=== PATIENT | female | born 1955 | race Caucasian/White ===

== ENCOUNTER 2025-02-13 12:51 | Inpatient (IN) | payer MEDICARE, MEDICAID, SELFPAY ==
[2025-02-13] VITALS (12 sets, daily range): BP systolic 105–128; BP diastolic 59–75; PULSE 62–108; RESP 15–20; TEMP 36.2–36.9; O2SAT 94–100; BMI 31.0
--- NOTE | 2025-02-13 13:01 | XR_ITS ---
Examination: CT brain head without contrast. 2-D sagittal coronal reconstructions Date and time of exam:February 13, 2025 1358 hours INDICATIONS: Altered mental status today CTDI: vol (mGy):44.5 DLP: (mGycm):939 Technique: Multiple CT axial sections of the brain have been obtained, 5 mm slice thickness. Contrast has not been administered. 2-D sagittal, coronal reconstructions have been obtained Low dose protocols were performed. One or more of the following dose reduction techniques were used; automated exposure control, adjustment of the mA and/or KV according to patient size, use of iterative reconstruction technique. Findings: Mild ventricular enlargement. Intra-axial or extra-axial hemorrhage density is not seen. No mass effect or midline shift Basal cisterns are not remarkable. Fourth ventricle is midline. Cranial vault intact. Impression: Negative for acute hemorrhage, mass effect or midline shift Advise clinical correlation and follow-up accordingly
--- NOTE | 2025-02-13 13:11 | PD.EDAMS ---
Altered Mental Status RME/HPI General Chief Complaint: Altered Mental Status Stated Complaint: AMS Time Seen by Provider: 02/13/25 13:00 Arrival date/time: 02/13/25 12:51 Limitations: no limitations RME / HPI RME / HPI narrative: 69 year old female with history of dementia and Alzheimer's disease presents to the ED via BIBA from home for evaluation of altered mental status today. Per medics, family members at the scene reported that the patient?s baseline mental status is typically confused but she is usually able to engage in conversation. However, in the last two days, the family has noted increase in confusion, which has worsened today. The family also mentioned that the patient has had similar episodes of confusion in the past, which they associate with flare ups of her hiatal hernia. Per medics report, patient is a GCS of 9, was warm to touch, and her SBP was 98. On arrival to ED patient is altered and unable to provide any additional history due to mental status. Rectal temperature 103.6F. Related Data Home Medications ?Medication ?Instructions ?Recorded ?Confirmed benztropine 1 mg tablet 1 mg PO HS 12/07/22 12/17/22 Previous Rx's ?Medication ?Instructions ?Recorded quetiapine 200 mg tablet 200 mg PO BID #60 tabs 12/08/22 Allergies Allergy/AdvReac Type Severity Reaction Status Date / Time No Known Allergies Allergy Verified 10/03/22 15:20 Review of Systems Review of Systems ROS Unobtainable: unobtainable due to mental status Past Medical History Past Medical History NEUROLOGIC: Positive Dementia CARDIAC: Positive Hypertension; Negative Congestive Heart Failure RESPIRATORY: Negative Chronic Obstructive Pulmonary Disease (COPD) GENITOURINARY: Negative Renal Disease ENDOCRINE: Negative Diabetes Mellitus Type 1 or Diabetes Mellitus Type 2 OTHER HISTORY: Positive Falls; Negative Blood Transfusions or Anesthesia Reactions Social History SMOKING STATUS: Smoker, status unknown SUBSTANCE USE: unknown ED Exam General Limitations: Present no limitations General appearance: Present other (Confused, combative, words were nontangible, pale, moving all extremities with tremors, face symmetrical, no fecal or urinary incontinence, no signs of trauma ) Head Head exam: Present atraumatic Eye Eye exam: Present PERRL and EOMI ENT ENT exam: Present normal exam, normal oropharynx and mucous membranes moist Neck Neck exam: Present normal inspection and full ROM Chest Chest inspection: Present normal inspection and symmetric chest wall rise Respiratory Respiratory exam: Present normal lung sounds bilaterally Cardiovascular Cardiovascular exam: Present tachycardia and normal heart sounds Abdominal Exam Abdominal exam: Present soft and normal bowel sounds Extremities Exam Extremities exam: Present normal inspection and full ROM Neurological Exam Neurological exam: Present other (Confused, combative, words were nontangible, moving all extremities ) Skin Skin exam: Present warm, dry, intact and normal color Course Quality Measures Possible source: genitourinary Blood cultures ordered: completed in ED Antibiotic ordered: Yes Pertinent labs: 02/13/25 13:28 Lactic Acid 2.8 H mMol/L (0.4-2.0) Procalcitonin 0.24 ng/ml (0.0-0.49) sepsis Orders Category Date Time Status Contract Lead STAT Care 02/13/25 13:01 Completed Continuous Pulse Oximetry STAT Care 02/13/25 13:01 Completed EKG (ED ONLY) *Do not use* NOW Care 02/13/25 13:01 Completed Cook to [place] Routine Care 02/13/25 13:19 Ordered Insert IV NOW Care 02/13/25 13:01 Completed Insert NG / OG tube NOW Care 02/13/25 13:19 Active Intubation NOW Care 02/13/25 13:34 Completed NPO STAT Care 02/13/25 13:01 Active Strict Intake and Output Routine Care 02/13/25 13:[address] head/brain wo con Stat Exams 02/13/25 13:01 Completed EKG (ED Only) Stat Exams 02/13/25 13:01 Ordered XR chest 1V post procedure Stat Exams 02/13/25 13:19 Completed ABG [Arterial Blood Gas] Stat Lab 02/13/25 16:20 Completed B-Type Natriuretic Peptide Stat Lab 02/13/25 13:28 Completed Blood Culture (Lab) Stat Lab 02/13/25 13:28 Received CBC Stat Lab 02/13/25 13:28 Completed Comprehensive Metabolic Panel Stat Lab 02/13/25 13:28 Completed LDH (Lactate Dehydrogenase) Stat Lab 02/13/25 13:28 Completed Lactate (Lactic Acid) Stat Lab 02/13/25 13:28 Completed Lipase Stat Lab 02/13/25 13:28 Completed MRSA Nasal Screen Routine Lab 02/13/25 13:20 Ordered Magnesium Stat Lab 02/13/25 13:28 Completed Partial Thromboplastin Time Stat Lab 02/13/25 13:28 Completed Phosphorous Stat Lab 02/13/25 13:28 Completed Procalcitonin Stat Lab 02/13/25 13:28 Completed Prothrombin Time with INR Stat Lab 02/13/25 13:28 Completed Sputum Culture and Gram Stain Stat Lab 02/13/25 13:41 Results Troponin I Stat Lab 02/13/25 13:28 Completed Urinalysis Stat Lab 02/13/25 13:30 Completed Urine Culture Stat Lab 02/13/25 13:30 Received Acetaminophen Supp [Tylenol Supp] Med 02/13/25 13:02 Discontinued 1,000 mg SD X1 ONE Etomidate Inj [Amidate Inj] Med 02/13/25 13:05 Discontinued 20 mg .ROUTE .STK-MED ONE Etomidate Inj [Amidate Inj] Med 02/13/25 13:01 Discontinued 20 mg IVP X1 ONE Rocuronium Inj [Zemuron Inj] Med 02/13/25 13:05 Discontinued 100 mg .ROUTE .STK-MED ONE Rocuronium Inj [Zemuron Inj] Med 02/13/25 13:16 Discontinued 50 mg IV X1 ONE Rocuronium Inj [Zemuron Inj] Med 02/13/25 14:14 Discontinued 50 mg IV X1 ONE Rocuronium Inj [Zemuron Inj] Med 02/13/25 13:12 Discontinued 50 mg IVP X1 ONE Rocuronium Inj [Zemuron Inj] Med 02/13/25 13:01 Discontinued 95 mg IV X1 ONE Sodium Chloride Rt Vane 10% [NS Rt Vane 10%] Med 02/13/25 13:35 Discontinued 5 ml INH X1 ONE Vancomycin Pharmacy to Dose Med 02/13/25 13:30 Discontinued 1 each IV QDAY PRN Vancomycin/Ns 1 gm Ivpb 200 ml Med 02/13/25 13:30 Discontinued IV X1 cefTAZidime 2 gm Med 02/13/25 13:01 Discontinued SODIUM CHLORIDE 0.9% (Popper) [Ns 0.9% (P)] 50 ml IV X1 fentaNYL 2,500 MCG/250 ML BAG [Sublimaze Inj 2,500 MCG/ Med 02/13/25 13:29 Active 250 ML BAG] 2,500 mcg in 250 ml IV 25 mcg/hr Mechanical [Volume Ventilator] Stat RT 02/13/25 Active Oxygen Delivery NOW RT 02/13/25 13:01 Active Sputum Induction PRN RT 02/13/25 13:45 Ordered Vital Signs Vital signs: Vital Signs Pulse Rate 103 H 02/13/25 13:38 Pulse Oximetry (%) 97 02/13/25 13:38 Fraction of Inspired Oxygen 100 02/13/25 13:38 Procedures -ED Intubation Time out performed: Yes sedative: Etomidate Mg Given: 20 paralytic: Rocuronium Mg Given: 50 Laryngoscope: fiber optic video scope Assist Device Used: fiber optic device ET Tube Size: 7.5 ET Tube Uncuffed: No Tube Secured Depth (cm): 23 Tube Secured Location: other (gum) Tube Placement Confirmation: visualized tube passing through cords, equal breath sounds bilaterally, no breath sounds over epigastrium and confirmation by capnometry Patient Tolerated Procedure: well and no complications Intubation Complications: none Altered Mental Status MDM Narrative MDM Narrative:: Dayami Treadwell am scribing for and in the presence of Dr. Moreno. Patient data External records reviewed:: [facility] previous records (I reviewed ED visit on 12/17/2022 for agitation ) and EMS form Clinical information provided by:: EMS Social determinants that could affect healthcare access:: none Patient has the following chronic illnesses:: Dementia, alzheimer's disease How is presenting disease/condition affected by chronic disease/condition?: exacerbated by Evaluation data The following diagnostics were reviewed and interpreted by me:: lab results and radiology exam(s) Lab and/or radiology exams considered but not ordered:: None Interpretation Summary: Ordering Physician: Leeroy Moreno MD Date of Service: 02/13/25 Procedure(s): CT head/brain wo con Accession Number(s): [id number] cc: Kaila Patterson MD; Leeroy Moreno MD; Bairon Del Valle MD~ Examination: CT brain head without contrast. 2-D sagittal coronal reconstructions Date and time of exam:February 13, 2025 1358 hours INDICATIONS: Altered mental status today CTDI: vol (mGy):44.5 DLP: (mGycm):939 Technique: Multiple CT axial sections of the brain have been obtained, 5 mm slice thickness. Contrast has not been administered. 2-D sagittal, coronal reconstructions have been obtained Low dose protocols were performed. One or more of the following dose reduction techniques were used; automated exposure control, adjustment of the mA and/or KV according to patient size, use of iterative reconstruction technique. Findings: Mild ventricular enlargement. Intra-axial or extra-axial hemorrhage density is not seen. No mass effect or midline shift Basal cisterns are not remarkable. Fourth ventricle is midline. Cranial vault intact. Impression: Negative for acute hemorrhage, mass effect or midline shift Advise clinical correlation and follow-up accordingly Dictated By: Bairon Del Valle MD Signed By: <Electronically signed by Bairon Del Valle MD in [place]> 02/13/25 1449 Ordering Physician: Leeroy Moreno MD Date of Service: 02/13/25 Procedure(s): XR chest 1V post procedure Accession Number(s): [id number] cc: Kaila Patterson MD; Leeroy Moreno MD; Bairon Del Valle MD~ Examination: AP chest single view TECHNIQUE: AP semiupright chest single view exam date and time to thousand 25 1444 hours Comparison October 03, 2022 INDICATIONS: Hypoxic respiratory failure postintubation today. FINDINGS: Tracheal tube tip is at the orifice mainstem bronchus Mild prominence left ventricle Reduced inspiratory Suspicious for mild pneumonia left base Orogastric tube in stomach satisfactory position IMPRESSION: Recommend retracting the endotracheal tube 2 cm Dictated By: Bairon Del Valle MD Signed By: <Electronically signed by Bairon Del Valle MD in [place]> 02/13/25 1448 Medications / Prescriptions Medications or Prescriptions considered but not ordered:: None Medication administrations:: Medication Administration History Acetaminophen (Acetaminophen 325 Mg Tablet) 650 mg PO Q6H PRN PRN Reason: Mild Pain 1-3 or Fever >100.3 Stop: 03/15/25 14:14 Dextrose (Dextrose 50%-Water Inj 50 Ml Syringe) 25 ml IV Q15MIN PRN PRN Reason: BG 50-70 responsive npo pt Stop: 03/15/25 17:32 Dextrose (Dextrose 50%-Water Inj 50 Ml Syringe) 50 ml IV Q15MIN PRN PRN Reason: BG <50 OR BG <70 & pt unresponsive Stop: 03/15/25 17:32 Glucagon (Glucagon Inj 1 Mg Vial) 1 mg IM Q15MIN PRN PRN Reason: BG <70, and no IV access Heparin Sodium (Porcine) (Heparin Sod Inj 5000 Unit/Ml Vial) 5,000 unit SC Q12HR [facility] Stop: 02/27/25 20:59 Fentanyl Citrate (Sublimaze Inj 2,500 Mcg/250 Ml Bag) 2,500 mcg in 250 mls @ 2.5 mls/hr IV .Q24H PRN; Protocol PRN Reason: PER PROTOCOL Stop: 02/18/25 13:28 Last Titration: 02/13/25 14:17 Dose: 75 mcg/hr, 7.5 mls/hr Documented By: Admin: 02/13/25 13:45 Dose: 25 mcg/hr, 2.5 mls/hr Documented By: MERISSA Co-signed By: OLIVER Lactated Ringer's (Lactated Ringers) 1,000 mls @ 75 mls/hr IV .[id number] [facility] Stop: 03/15/25 14:14 Last Admin: 02/13/25 15:57 Dose: 75 mls/hr Documented By: MERISSA Propofol (Diprivan Ivpb) 1,000 mg in 100 mls @ 2.858 mls/hr IV .Q24H PRN; Protocol PRN Reason: PER PROTOCOL Stop: 03/15/25 14:21 Last Titration: 02/13/25 16:13 Dose: 25 mcg/kg/min, 14.288 mls/hr Documented By: Titration: 02/13/25 16:13 Dose: 20 mcg/kg/min, 11.43 mls/hr Documented By: Titration: 02/13/25 15:05 Dose: 15 mcg/kg/min, 8.573 mls/hr Documented By: Titration: 02/13/25 15:00 Dose: 10 mcg/kg/min, 5.715 mls/hr Documented By: Admin: 02/13/25 14:30 Dose: 5 mcg/kg/min, 2.858 mls/hr Documented By: MERISSA Co-signed By: PAT Ceftriaxone Sodium/Dextrose (Rocephin/D5w 1gm Iv Premix) 1 gm in 50 mls @ 100 mls/hr IV QDAY [place] Stop: 02/21/25 07:59 Vancomycin HCl/Dextrose (Vancomycin/D5w 1,250 Mg Ivpb) 250 mls @ 120 mls/hr IV DAILY@1000 [place] Stop: 02/21/25 09:59 Magnesium Sulfate (Magnesium Sulfate Ivpb) 2 gm in 50 mls @ 25 mls/hr IV X1 ONE Stop: 02/13/25 19:30 Insulin Human Lispro (Insulin Lispro (Admelog) 1 Unit/0.01 Ml Unit) 0 unit SC Q6HR [place]; Protocol Stop: 03/15/25 17:59 Ondansetron HCl (Ondansetron Inj 2 Mg/Ml Inj 2 Ml) 4 mg IV Q6H PRN; Protocol PRN Reason: NAUSEA OR VOMITING Stop: 03/15/25 14:14 Pantoprazole Sodium (Pantoprazole Inj 40 Mg Vial) 40 mg IVP QDAY [place] Stop: 03/15/25 14:29 Last Admin: 02/13/25 14:53 Dose: 40 mg Documented By: MERISSA Pharmacy Consult (Vancomycin Pharmacy To Dose 1 Each Each) 1 each IV QDAY PRN PRN Reason: CONSULT Stop: 03/16/25 08:59 Sennosides (Senna Tablet) 1 tab GT QDAY PRN; Protocol PRN Reason: constipation Stop: 03/15/25 14:14 Discontinued Medications Acetaminophen (Acetaminophen Supp 650 Mg Supp) 1,000 mg SD X1 ONE Stop: 02/13/25 13:03 Etomidate (Etomidate Inj 2 Mg/Ml Vial 10 Ml) 20 mg IVP X1 ONE Stop: 02/13/25 13:02 Last Admin: 02/13/25 13:12 Dose: 20 mg Documented By: MERISSA Etomidate (Etomidate Inj 2 Mg/Ml Vial 10 Ml) Confirm Administered Dose 20 mg .ROUTE .STK-MED ONE Stop: 02/13/25 13:06 Last Admin: 02/13/25 13:17 Dose: Not Given Documented By: MERISSA Non-Admin Reason: Override Medication Ceftazidime 2 gm/ Sodium (Chloride) 50 mls @ 100 mls/hr IV X1 ONE Stop: 02/13/25 13:30 Last Admin: 02/13/25 16:22 Dose: 100 mls/hr Documented By: Vancomycin/Sodium Chloride (Vancomycin/Ns 1 Gm Ivpb) 200 mls @ 120 mls/hr IV X1 ONE Stop: 02/13/25 15:09 Last Infusion: 02/13/25 16:22 Dose: Infused Documented By: Admin: 02/13/25 14:34 Dose: 120 mls/hr Documented By: Pharmacy Consult (Vancomycin Pharmacy To Dose 1 Each Each) 1 each IV QDAY PRN PRN Reason: CONSULT Stop: 03/15/25 13:29 Potassium Chloride (Potassium Chloride 10% 20 Meq/15 Ml Udc) 40 meq NG X1 ONE Stop: 02/13/25 14:33 Last Admin: 02/13/25 15:58 Dose: 40 meq Documented By: Potassium Phos/Sodium Phos ([facility] 1 Packet (1.5 Gm)) 1 packet NG X1 ONE Stop: 02/13/25 17:35 Rocuronium Newcomb (Rocuronium Inj 10 Mg/Ml Vial 10 Ml) 95 mg 1 mg/kg (95 mg) IV X1 ONE Stop: 02/13/25 13:02 Last Admin: 02/13/25 13:17 Dose: Not Given Documented By: Non-Admin Reason: Other, see note Comments: 50 mg ordered. not 95 Rocuronium Newcomb (Rocuronium Inj 10 Mg/Ml Vial 10 Ml) Confirm Administered Dose 100 mg .ROUTE .STK-MED ONE Stop: 02/13/25 13:06 Last Admin: 02/13/25 13:17 Dose: Not Given Documented By: Non-Admin Reason: Override Medication Rocuronium Newcomb (Rocuronium Inj 10 Mg/Ml Vial 10 Ml) 50 mg IVP X1 ONE Stop: 02/13/25 13:13 Last Admin: 02/13/25 13:12 Dose: 50 mg Documented By: MERISSA Co-signed By: PAT Rocuronium Newcomb (Rocuronium Inj 10 Mg/Ml Vial 10 Ml) 50 mg IV X1 ONE Stop: 02/13/25 13:17 Last Admin: 02/13/25 13:27 Dose: Not Given Documented By: Non-Admin Reason: Duplicate Medication on eMAR Rocuronium Newcomb (Rocuronium Inj 10 Mg/Ml Vial 10 Ml) 50 mg IV X1 ONE Stop: 02/13/25 14:15 Last Admin: 02/13/25 14:55 Dose: 50 mg Documented By: MERISSA Co-signed By: VG Sodium Chloride (Sodium Chloride Rt 10% 15 Ml Nebu) 5 ml INH X1 ONE Stop: 02/13/25 13:36 Sodium Chloride (Sodium Chloride Rt 10% 15 Ml Nebu) 5 ml INH X1 ONE Stop: 02/13/25 14:36 See above Consultations Consultation(s) initiated? (list below): Yes Consultation #1 (Physician, Specialty, Details): I spoke with slip sheeter Dr. Ferrara. Discussed patients PMHx, HPI, ED course, exam findings, labs, and radiology results. Folder Gluer Operator accepts the patient for admission. Diagnosis Differential diagnosis altered mental status: altered mental status, delirium, dementia, hypoglycemia, hyponatremia, subarachnoid hemorrhage and sepsis Most likely diagnosis given after review of the tests above:: Sepsis UTI Admission Indicated Admission indicated?: indicated Admission Request Was there a request for admission?: Yes Admission Attestation Admission request attestation: Discussed case with [] from Hospitalist service regarding admission. Discussed patients ED course, exam findings, labs, and radiology results. The Hospitalist [agrees,declines] to accept the patient for admission. Disposition Plan Disposition Plan: Admit Critical Care Time Critical Care Time Critical Care Time: Yes Total Critical Care Time (min.): 35 Attestation: The high probability of sudden, clinically significant deterioration in the patient's condition required the highest level of my preparedness to intervene urgently. The services I provided to this patient were to treat and/or prevent clinically significant deterioration. Services included the following: chart data review, reviewing nursing notes and/or old charts, documentation time, middleware consultant collaboration regarding findings and treatment options, medication orders and management, direct patient care, vital sign assessments and ordering, interpreting and reviewing diagnostic studies and lab tests. Aggregate critical care time includes only time during which I was engaged in work directly related to the patient's care, as described above, whether at bedside or elsewhere in the Emergency Department. It did not include time spent performing other reported procedures or the services of residents, students, nurses or physician assistants. Discharge Plan Plan Patient Disposition: Admit Acute Care w/in Hospital Patient condition on transfer: Stable Problem List Clinical Impression: Sepsis, UTI (urinary tract infection)
[2025-02-13] MEDS: ROCURONIUM INJ 10 MG/ML VIAL 10 ML 50 MG IVP (13:12)
[2025-02-13] MEDS: ETOMIDATE INJ 2 MG/ML VIAL 10 ML 20 MG IVP (13:12)
--- NOTE | 2025-02-13 13:19 | XR_ITS ---
Examination: AP chest single view TECHNIQUE: AP semiupright chest single view exam date and time to thousand 25 1444 hours Comparison October 03, 2022 INDICATIONS: Hypoxic respiratory failure postintubation today. FINDINGS: Tracheal tube tip is at the orifice mainstem bronchus Mild prominence left ventricle Reduced inspiratory Suspicious for mild pneumonia left base Orogastric tube in stomach satisfactory position IMPRESSION: Recommend retracting the endotracheal tube 2 cm
[2025-02-13 13:35] LABS: Collection Type, Urine Clean Catch
[2025-02-13 13:40] LABS: Bacteria,Urine 4+; Bilirubin,Urine Negative (Negative); Blood,Urine Trace (Negative); Color,Urine Lt-Yellow (Lt Yel-Yel); Glucose, Urine Negative (Negative); Ketones,Urine Negative (Negative); Leukocyte Esterase,Urine Positive (Negative); Nitrite,Urine Positive (Negative); PH,Urine 5.5 (5.0-7.0); Protein,Urine Trace (Neg - Trace); RBC,Urine 2 /hpf (0-3); Specific Gravity,Urine 1.012 (1.001-1.035); Squamous Epithelial Cell,Urine 1 /hpf (0-5); Urobilinogen,Urine Negative mg/dL (0.0-1.0); WBC,Urine 85 /hpf (0-5)
[2025-02-13 13:41] LABS: Clarity,Urine Cloudy (Clear/Hazy)
[2025-02-13 13:41] LABS: Basophils # (Auto) 0.1 Thou/mm3 (0.0-0.2); Basophils % (Auto) 0 % (0-2.5); Eosinophils % (Auto) 0 % (0-10); Hematocrit 34.3 % (36.0-46.0); Hemoglobin 11.7 g/dL (12.0-16.0); Immature Granulocytes % (Auto) 0 % (0-0); Immature Granulocytes Auto 0.05 Thou/mm3 (0.00-0.00); Lactate (Lactic Acid) 2.8 mMol/L (0.4-2.0); Lymphocytes # (Auto) 0.8 Thou/mm3 (1.0-4.8); Lymphocytes % (Auto) 6 % (10-50); Mean Corpuscular HGB Conc 34.1 g/dl (31.0-37.0); Mean Corpuscular Hemoglobin 29.3 pg (25.0-35.0); Mean Corpuscular Volume 86 fL (80-100); Monocytes # (Auto) 1.5 Thou/mm3 (0.0-0.8); Monocytes % (Auto) 11 % (0-12); Neutrophils # (Auto) 10.8 Thou/mm3 (1.8-7.7); Neutrophils % (Auto) 82 % (37-80); Nucleated Red Blood Cell % 0 /100 WBC (0); Platelet Count 197 Thou/mm3 (140-440); Red Blood Count 3.99 Miln/mm3 (4.00-5.20); White Blood Count 13.1 Thou/mm3 (3.6-11.0)
[2025-02-13] MEDS: fentaNYL 2,500 MCG/250 ML BAG 2,500 MCG/250 ML BAG IV (13:45)
[2025-02-13 13:55] LABS: INR 1.1 (0.9-1.3); Partial Thromboplastin Time 31.6 Seconds (22.0-36.0); Prothrombin Time 11.7 Seconds (9.0-12.2)
[2025-02-13 14:01] LABS: B-Type Natriuretic Peptide 116 pg/mL (0-100)
[2025-02-13 14:11] LABS: Alanine Aminotransferase 13 U/L (10-49); Albumin, Serum 4.1 gm/dL (3.4-4.8); Albumin/Globulin Ratio 1.5 (1.2-2.2); Alkaline Phosphatase 73 U/L (46-116); Anion Gap 12 (7-16); Aspartate Amino Transferase 12 U/L (0-34); BUN/Creatinine Ratio 20 Ratio (12-20); Bilirubin,Total 0.8 mg/dL (0.3-1.2); Blood Urea Nitrogen 20 mg/dL (9-23); Calcium 9.2 mg/dL (8.3-10.6); Calcium (Corrected) 9.2 mg/dL (8.5-10.1); Carbon Dioxide 21.9 mMol/L (20.0-31.0); Chloride 103 mMol/L (98-107); Estimated Creatinine Clearance 67.1 mL/min (>60); Globulin 2.7 gm/dL (2.3-3.5); Glucose 203 mg/dL (74-106); LDH (Lactate Dehydrogenase) 157 U/L (120-246); Lipase 25 U/L (12-53); Magnesium 1.4 mg/dL (1.6-2.6); Osmolality,Calculated 282 (275-295); Phosphorous 2.1 mg/dL (2.4-5.1); Potassium 3.6 mMol/L (3.4-5.1); Procalcitonin 0.24 ng/ml (0.0-0.49); Sodium 137 mMol/L (136-145); Total Protein 6.8 gm/dL (5.7-8.2); Troponin I < 0.020 ng/mL (0.0-0.045); eGFR > 60 See Note
[2025-02-13] MEDS: PROPOFOL 1,000 MG IVPB 1,000 MG/100 ML VIAL 2.858 MG IV (14:30)
--- NOTE | 2025-02-13 14:30 | PD.RESPROC ---
Procedures Procedure Date / Time 02/13/2025 14:30 Procedure Narrative Procedure Narrative: Indications: Rule out meningitis in the setting of pyrexia of 104 F Time: 2:00 PM Time out completed to verify correct patient, procedure, site, and special equipment required. Patient was placed on the right lateral decubitus position with with legs bent in position. Iliac crest identified. Bony lumbar spinous process palpated and intraspinous space identified in alignment with iliac crest. Lidocaine used to anesthetize local area. Needle advanced into subarachnoid space for CSF fluid. Stop removed and manometer obtained with opening pressure of 14. CSF fluid collected with 4 tubes. Minimal blood loss. - The patient's plan was discussed with attending Dr. Ferrara and senior residents Dr. Zahida Bravo MD PGY1 Internal Medicine Attending Attestation: I was present for entire procedure. No immediate complications, and no significant blood loss. Patient tolerated procedure well. Normal opening pressure. Clear fluid suggested of noninfected CSF. Will follow-up on studies with empiric antibiotic and antiviral regimen initiated. Lumbar Puncture Informed consent obtained: implied Time out done, and the following verified: correct patient, side and site, procedure and patient position Patient position: left lateral decubitus Skin prep: Povidone-Iodine 1% Local anesthetic used: Lidocaine 1% Amount of anesthesia used (mL): 4 Spinal needle gauge: 20G Interspace used: L4-L5 Fluid initially obtained: clear EBL(ml): 1 Complications: none
[2025-02-13] MEDS: VANCOMYCIN/NS 1 GM IVPB 200 ML IV (14:34)
[2025-02-13] MEDS: PANTOPRAZOLE INJ 40 MG VIAL IVP (14:53)
[2025-02-13] MEDS: ROCURONIUM INJ 10 MG/ML VIAL 10 ML 50 MG IV (14:55)
[2025-02-13] MEDS: RINGERS LACTATED 1000 ML 1,000 ML 75 ML IV (15:57)
[2025-02-13] MEDS: POTASSIUM CHLORIDE 10% 20 MEQ/15 ML UDC 40 MEQ NG (15:58)
[2025-02-13] MEDS: SODIUM CHLORIDE 0.9% IV ×2 (16:22→21:04)
[2025-02-13] MEDS: CEFTAZIDIME IV (16:22)
[2025-02-13 16:26] LABS: Base Excess 0 (-3-3); HCO3 25 mEq/L (20-26); Inspired Oxygen, FIO2 50 %; O2 Saturation 100 % (91-98); PCO2 41 mmHg (32.0-48.0); PO2 138 mmHg (83-108); pH, Arterial 7.39 (7.35-7.45)
[2025-02-13 16:28] LABS: Allen Test Performed/OK; Puncture Site Left Radial
[2025-02-13 16:31] LABS: Coccid Serology, CF CSF (UCD)* See Sep Rpt
[2025-02-13 16:39] LABS: Reflex Lactate? Y
[2025-02-13 17:04] LABS: CSF Cell Count Tube # Tube # 4; CSF Color Colorless (Colorless); CSF Mononuclear 0 %; CSF Polynuclear WBC 100 %; CSF Red Blood Cell 0 /cmm; CSF White Blood Cell 1 /cmm; CSF, Appearance Clear (Clear)
--- NOTE | 2025-02-13 17:21 | ESHP_ITS ---
Documentation for date of: 02/13/25 HPI History of Present Illness History of present illness: CC: altered mental status Patient is a 69-year-old female with a past medical history of dementia secondary to Alzheimer's disease and history of paranoid schizophrenia who presented to the emergency room from home with a chief complaint of of altered mental status over the past 2 days. Most patinet history obtained from patient's son, Darshan, patient has become more confused over the past view days and is no longer to carry on a conversation with increasing non-sensical speech pattern. Decreased urine output over the past two days. December, recent visit to pcp where antibiotic given, Cephalexin, for UTI. Denied recent sick contacts. Denied chills at home. Subjective pyrexia at home. Denied chest pain. Shortness of breath, per patient's son secondary to anxiety at baseline. No seizure like activity. Denied syncopal episodes. Denied recent falls. Denied any hemetemis, no hematochezia, and no melena. Denied cardiac history. 45 pack year history of smoking cigarettes and quit 5 years ago. Denied COPD diagnosis or need for albuterol. Denied wheezing. Remote history of meth use disorder. Admitted on 02/13/2025 for shock likely secondary to distributive patter and requiring mechanical ventilation, unable to protect airway. ER Course: Vitals upon arrival patient required immediate mechanical ventilation as GCS of 9 with a systolic blood pressure 98 with pyrexia of 104 F with acute encephalopathy. Leukocytosis with WBC count of 13.1. Na 137 and Potassium of 3.6. NO ANNETTA noted, BUN 20 and Creatine of 1.0. Elevated glucose, 203, denied history of diabetes. Lactic acid of 2.8 w/ repeat of 2.1. Hyperphosphatemia of 2.1 and hypomagensium of 1.4. Troponin within normal limits. BNP 116. No pulmonary vascular congestion noted on chest x-ray. Early left base pneumonia. Head CT negative for acute hemorrhage or mass effect. ABG-ph 7.39, pCO2 41, and PO2 138. Urine culture: Cloudy, Nitrates +, Leukocytes Esterase Positive, WBC 85 (H), and bacteria 4+ Medication: Rocuronium, Etomidate, Fentanly, propofol, and Cefepime 2 grams PMH: Dementia, Alzeihmers disease, and paranoid schizophrenia 45 pack year history, Cigarettes Past Surgical History: None Home Medication: Benztropine 1 mg HS Quetiapine 400 mg BID Lorazepam 0.5 mg TID (per son, patient takes 3 times a day consistently) Social History: 45 pack year history, quit about 5 years ago Remote history of meth use disorder Allergies: None Code Status: Full Code Review of Systems Review of Systems Narrative Review of Systems: All information collected from SON General appearance: NO weight change, NO fatigue, NO weakness, YES fever, NO chills, NO night sweats, No cough Skin: NO rash, NO itching, NO sores, NO moles HEENT: NO Trauma, NO nausea, NO vomiting, NO visual changes, NO blurry vision, NO double vision, NO tinnitus, NO vertigo, NO ear discharge, NO rhinorrhea, NO stuffiness, NO sneezing, NO allergy, NO epistaxis. NO Hoarseness, NO sore throat, NO swollen neck. Cardiac: NO Palpitations, NO dyspnea on exertion, NO orthopnea, NO paroxysmal nocturnal dyspnea, NO edema Respiratory: NO Shortness of Breath, NO Wheezing, NO Cough, NO Sputum, NO hemoptysis GI:NO appetite, NO nausea, NO vomiting, NO dysphagia, NO changes in bowel frequency, NO stool color, NO diarrhea, NO constipation, NO hemetemesis, NO hemorrhoids, NO melena, NO hematechezia, NO abdominal pain, NO jaundice Renal: NO frequency, NO hesitancy, NO urgency, NO hematuria, NO nocturia, NO incontinence, decreased urine output. MSK: NO muscle weakness, NO gout, NO arthritis, NO muscle stiffness Neuro: NO headaches, NO tremors, NO weakness, NO paralysis, NO seizures, NO loss of consciousness, NO numbness. Hem: NO anemia, NO easy bruising/bleeding, NO petechiae, NO purpura Endo: NO heat/cold intolerance, NO excessive sweating, NO polyuria, NO polydipsia, NO polyphagia, NO thyroid problems, Denied diabetes Pysch: NO mood, YES anxiety, NO depression Exam Vital Signs Temp Pulse Resp BP Pulse Ox O2 Del Method FiO2 98.4 F 76 16 128/73 100 Mechanical Ventilation 50 02/13/25 16:23 02/13/25 16:23 02/13/25 16:23 02/13/25 16:23 02/13/25 16:23 02/13/25 16:23 02/13/25 16:23 Narrative Exam General Appearance: Alert & Oriented X0, well-nourished female who is lying in bed in no distress as patient was intubated upon examination HEENT: Skull symmetrical and atraumatic. Conjunctivae pale pink and moist. Pupils equal, round, reactive to light and accommodation (PERRL). External ear without lesion or discharge. Straight, nares patient, mucosa pink, no discharge. Cardio: Normal Rate and Rhythm with S1 and S2 heart sounds. No murmurs or extra heart sounds auscultated. No bruits on carotid auscultation. No peripheral edema or cyanosis. Lungs: Symmetric expansion Breath sounds vesicular without crackles, wheezing or rhonchi Abdomen: Non-tender, Non-distended, Hypo- Reactive Bowel Sounds, grimacing noted on physical exam at supra-pubic region unon palpation. Neuro: Yes Alert, NO cooperative,NO oriented to person, NO place, and NO time. Unresponsive. Unable to access as patient was sdated. Results: Labs 02/17/25 09:26 02/17/25 09:26 Labs: Short CBC 02/13/25 Range/Units 13:28 WBC 13.1 H (3.6-11.0) Thou/mm3 Hgb 11.7 L (12.0-16.0) g/dL Hct 34.3 L (36.0-46.0) % Plt Count 197 (140-440) Thou/mm3 BMP 02/13/25 13:28 Sodium 137 Potassium 3.6 Chloride 103 Carbon Dioxide 21.9 BUN 20 Creatinine 1.0 Glucose 203 H Calcium 9.2 Cardiac Enzymes 02/13/25 Range/Units 13:28 Troponin I < 0.020 (0.0-0.045) ng/mL Liver Function 02/13/25 Range/Units 13:28 Total Bilirubin 0.8 (0.3-1.2) mg/dL AST 12 (0-34) U/L ALT 13 (10-49) U/L Alkaline Phosphatase 73 (46-116) U/L Albumin 4.1 (3.4-4.8) gm/dL Urine 02/13/25 Range/Units 13:30 Urine Color Lt-Yellow (Lt Yel-Yel) Urine Clarity Cloudy A (Clear/Hazy) Urine pH 5.5 (5.0-7.0) Ur Specific [place] 1.012 (1.001-1.035) Urine Protein Trace (Neg - Trace) Urine Glucose (UA) Negative (Negative) ABG Interpretation ABG results: 02/13/25 16:20 ABG pH 7.39 ABG pCO2 41 ABG pO2 138 H ABG HCO3 25 ABG O2 Saturation 100 H ABG Base Excess 0 Quality Measures Quality Measures sepsis Current suspected stage: sepsis Possible source: genitourinary Blood cultures ordered: completed in ED Antibiotic ordered: Yes Advance care planning discussed with:: patient Medications Home Medications and Allergies Home Medications ?Medication ?Instructions ?Recorded ?Confirmed ?Type benztropine 1 mg tablet 1 mg PO HS 12/07/22 02/13/25 History bisacodyl 5 mg tablet,delayed 10 mg PO QDAY 02/13/25 0 02/13/25 History release (Dulcolax (bisacodyl)) lorazepam 0.5 mg tablet 0.5 mg PO TID PRN anxiety 02/13/25 History Allergies Allergy/AdvReac Type Severity Reaction Status Date / Time No Known Allergies Allergy Verified 10/03/22 15:20 Visit Medications Acetaminophen (Acetaminophen 325 Mg Tablet) 650 mg PO Q6H PRN PRN Reason: Mild Pain 1-3 or Fever >100.3 Stop: 03/15/25 14:14 Heparin Sodium (Porcine) (Heparin Sod Inj 5000 Unit/Ml Vial) 5,000 unit SC Q12HR [facility] Stop: 02/27/25 20:59 Fentanyl Citrate (Sublimaze Inj 2,500 Mcg/250 Ml Bag) 2,500 mcg in 250 mls @ 2.5 mls/hr IV .Q24H PRN; Protocol PRN Reason: PER PROTOCOL Stop: 02/18/25 13:28 Last Titration: 02/13/25 14:17 Dose: 75 mcg/hr, 7.5 mls/hr Lactated Ringer's (Lactated Ringers) 1,000 mls @ 75 mls/hr IV .[id number] [facility] Stop: 03/15/25 14:14 Last Admin: 02/13/25 15:57 Dose: 75 mls/hr Propofol (Diprivan Ivpb) 1,000 mg in 100 mls @ 2.858 mls/hr IV .Q24H PRN; Protocol PRN Reason: PER PROTOCOL Stop: 03/15/25 14:21 Last Titration: 02/13/25 16:13 Dose: 25 mcg/kg/min, 14.288 mls/hr Ceftriaxone Sodium/Dextrose (Rocephin/D5w 1gm Iv Premix) 1 gm in 50 mls @ 100 mls/hr IV QDAY [place] Stop: 02/21/25 07:59 Vancomycin HCl/Dextrose (Vancomycin/D5w 1,250 Mg Ivpb) 250 mls @ 120 mls/hr IV DAILY@1000 [place] Stop: 02/21/25 09:59 Ondansetron HCl (Ondansetron Inj 2 Mg/Ml Inj 2 Ml) 4 mg IV Q6H PRN; Protocol PRN Reason: NAUSEA OR VOMITING Stop: 03/15/25 14:14 Pantoprazole Sodium (Pantoprazole Inj 40 Mg Vial) 40 mg IVP QDAY [place] Stop: 03/15/25 14:29 Last Admin: 02/13/25 14:53 Dose: 40 mg Pharmacy Consult (Vancomycin Pharmacy To Dose 1 Each Each) 1 each IV QDAY PRN PRN Reason: CONSULT Stop: 03/16/25 08:59 Sennosides (Senna Tablet) 1 tab GT QDAY PRN; Protocol PRN Reason: constipation Stop: 03/15/25 14:14 Discontinued Medications Acetaminophen (Acetaminophen Supp 650 Mg Supp) 1,000 mg IN X1 ONE Stop: 02/13/25 13:03 Etomidate (Etomidate Inj 2 Mg/Ml Vial 10 Ml) 20 mg IVP X1 ONE Stop: 02/13/25 13:02 Last Admin: 02/13/25 13:12 Dose: 20 mg Ceftazidime 2 gm/ Sodium (Chloride) 50 mls @ 100 mls/hr IV X1 ONE Stop: 02/13/25 13:30 Last Admin: 02/13/25 16:22 Dose: 100 mls/hr Vancomycin/Sodium Chloride (Vancomycin/Ns 1 Gm Ivpb) 200 mls @ 120 mls/hr IV X1 ONE Stop: 02/13/25 15:09 Last Infusion: 02/13/25 16:22 Dose: Infused Pharmacy Consult (Vancomycin Pharmacy To Dose 1 Each Each) 1 each IV QDAY PRN PRN Reason: CONSULT Stop: 03/15/25 13:29 Potassium Chloride (Potassium Chloride 10% 20 Meq/15 Ml Udc) 40 meq NG X1 ONE Stop: 02/13/25 14:33 Last Admin: 02/13/25 15:58 Dose: 40 meq Rocuronium [place] (Rocuronium Inj 10 Mg/Ml Vial 10 Ml) 95 mg 1 mg/kg (95 mg) IV X1 ONE Stop: 02/13/25 13:02 Last Admin: 02/13/25 13:17 Dose: Not Given Rocuronium [place] (Rocuronium Inj 10 Mg/Ml Vial 10 Ml) 50 mg IVP X1 ONE Stop: 02/13/25 13:13 Last Admin: 02/13/25 13:12 Dose: 50 mg Rocuronium [place] (Rocuronium Inj 10 Mg/Ml Vial 10 Ml) 50 mg IV X1 ONE Stop: 02/13/25 13:17 Last Admin: 02/13/25 13:27 Dose: Not Given Rocuronium [place] (Rocuronium Inj 10 Mg/Ml Vial 10 Ml) 50 mg IV X1 ONE Stop: 02/13/25 14:15 Last Admin: 02/13/25 14:55 Dose: 50 mg Sodium Chloride (Sodium Chloride Rt 10% 15 Ml Nebu) 5 ml INH X1 ONE Stop: 02/13/25 13:36 Sodium Chloride (Sodium Chloride Rt 10% 15 Ml Nebu) 5 ml INH X1 ONE Stop: 02/13/25 14:36 Assessment & Plan Plan Patient is a 69-year-old female with a past medical history of dementia secondary to Alzheimer's disease and history of paranoid schizophrenia was admitted for sepsis secondary to UTI requiring mechanical ventilation, unable to protect airway to ICU on 02/13/2025. [employer] EXECUTIVE: #Acute encephalopathy Acute encephalopathy likely in the setting of shock versus poly-pharmacy as patient takes several behavioral health mediation including benztropine, lorazepam TID, and quetiapine. Plan: -continue to monitor CVS: #Sepsis #Lactic Acidosis Most likely sepsis, in the setting of urinary tract infection with positive UA. ER 1.5 Liters of urine after means catheter placement that appeared cloudy. Hypotensive 98/68 (MAP >65) as per chart review systolic BP 130-150s, HR 108, WBC of 13, and pyrexia of 104, lactic acidosis, and end-organ damage with acute encephalopathy. Meningitis can not be rule out given acute altered mental status and pyrexia of 104 F. Pneumonia can not be rule out given chest x-ray findings of early left base pneumonia. No pressors at this time. Bolus X 1 and Maintenance fluid. SOFA 5 points. Plan -Ceftriaxone, Vancomycin, Ampicillin, and Acyclovir (02/13/2025), consider deescalating based on LP -NS 1 liter bolus, NS @ 70 cc per hour -LP anylisis, LP Culture -Repeat Lactic Acid -Blood culture -Urine Culutre -MRSA Swab -Strict Ins and Outs, Means catheter -Tylenol via NG tube Respiratory: #Mechanically Ventilated, unable to protect airway #Community Acquired Pneumonia On arrival, patient unable to protect airway, with GCS of 9 upon arrival, requiring incubation and mechanical ventilation likely in the setting of sepsis. Chest x-rays noted for pneumonia, less likely as no rhonchi noted on physical exam but can not be ruled out at this time. Plan -Flu, Covid tests -sputum culture -Propofol PRN -dual coverage with antibiotics in setting of sepsis Renal: Stable. GI: #Constipation Home medication, senna as patient has a past medical history of constipation. plan -resume Senna. MSK: Stable Endo: Hyperglycemia on addition with glucose level of 203. Family at beside denied history of diabetes. NO A1c on file. Plan -Sliding scale q6HR given NPO -A1c levels AM draw and Lipid panel AM Heme: #Normocytic Anemia On arrival hgb of 11.7 and hct of 34.3 with MCV of 86, and RDW of 45 (N). Normocytic anemia likely in the setting of inflammation given sespsi. Other causes can not be rule out such as microcytic from GI losses, but less likely as family members deny history. Plan -No acute intervention -Trend hgb and hct -if worsening, consider iron panel, ferritin, occult blood, B12, and Folate. #Leukocytosis On arrival WBC count of 13.1 in the setting of sepsis, likely distributive concern for urinary tract infection and pneumonia. Plan treat underlying condition trend WBC ID: #[id number] #Pneumonia Noted to have a positive UA with bacteria, nitrates and esterases. Plan -Urine Culture -Blood Culture -Sputum Culture -Cefepmine ER 2 grams 02/13/2025 Hospital Maintenance: Diet: NPO DVT ppx: Heparin Q12 HR GI ppx: Protonix 40 mg IV IV lines: Means catheter, NG tube ordered, Mechanical ventilation Code status: Full code Dispo: ICU in the setting of shock, likely distributive and mechanically ventilated - The patient's plan was discussed with attending Dr. Alem Bravo MD PGY1 Internal Medicine Attending Provider Attestation/Addendum Patient seen and examined with above resident, Mayr Bravo MD. I agree with the findings, assessment, and plan of care as document except for any differences below. Patient presents to the emergency department with acute encephalopathy. Febrile to 104 ?F per bedside staff. Given her altered mental status we did proceed with lumbar puncture which was successfully done. Patient given acute encephalopathy was placed on mechanical ventilation endotracheal intubation for airway protection. Means catheter was placed and there is gross pyuria present. I suspect that this is the most likely etiology but cannot exclude presence of OUTS[employer] SAL[employer]ISING EXECUTIVE infection given her significant rigidity. Patient underlying neurologic status shows considerable progressive dementia. She has recently been treated for urinary tract infection with ongoing urinary retention and constipation. Family. Will follow-up on results of CSF analysis with empiric treatments initiated. Antibiotic and antiviral regimen will be adequate for coverage of urinary source as well. Adequate drainage with placement of Means now. Will continue to monitor closely for development of need of vasopressor support though she remains hemodynamically stable at this time with likely adequate source control. Total critical care time: Personally spent 40 minutes for review of physiologic parameters, directing plan of care throughout the day, and coordination of care with other specialist. This is exclusive of time spent teaching housestaff performing any separate billable procedures. Patient remains at significant risk for further morbidity and mortality warranting close monitoring and care only immediately available in the ICU. Patient continues to require critical care services for acute encephalopathy, severe sepsis, urinary tract infection/meningitis.
[2025-02-13 17:26] LABS: Glucose,CSF 107 mg/dL (40-70); Protein Total,CSF 59 mg/dL (8-32)
[2025-02-13 17:34] LABS: Alcohol, Urine Negative (Negative); Amphetamine/Methamp Scrn,U Negative (Negative); Barbiturate Screen,Urine Negative (Negative); Benzodiazepines Screen,Urine Negative (Negative); Benzoylecgonine Screen, Ur Negative (Negative); Fentanyl Screen,Urine Negative (Negative); Opiate Screen,Urine Negative (Negative); THC Screen,Urine Negative (Negative)
[2025-02-13 17:43] LABS: CSF Gram Stain Alert Gram Stain Completed
[2025-02-13 17:53] LABS: Lactate (Lactic Acid) 2.1 mMol/L (0.4-2.0)
[2025-02-13] MEDS: Magnesium Sulfate 2 GM Ivpb 2 GM/50 ML BAG IV (19:02)
[2025-02-13] MEDS: NAPH,KPH MBDB 1 PACKET (1.5 GM) NG (19:02)
[2025-02-13] MEDS: Ampicillin Inj 2,000 MG in SODIUM CHLORIDE 0.9% (POP) 100 ML 100 MG IV ×2 (20:01→22:43)
[2025-02-13] MEDS: SODIUM CHLORIDE 0.9% 1000 ML 1,000 ML 999 ML IV (20:01)
[2025-02-13 20:50] LABS: Reflex Lactate? Y
[2025-02-13] MEDS: HEPARIN SOD INJ 5000 UNIT/ML VIAL SC (21:03)
[2025-02-13] MEDS: ACYCLOVIR IV (21:04)
[2025-02-13 22:06] LABS: Lactic Acid, 3 HR 3.4 mMol/L (0.4-2.0)
[2025-02-13] MEDS: PROPOFOL 1,000 MG IVPB 1,000 MG/100 ML VIAL 11.43 MG IV (22:14)
[2025-02-14] VITALS (74 sets, daily range): BP systolic 82–155; BP diastolic 45–107; PULSE 48–103; RESP 12–32; TEMP 36.3–38.9; O2SAT 90–99; BMI 27.1; BMI 26.3
[2025-02-14 00:38] LABS: Lactate (Lactic Acid) 2.1 mMol/L (0.4-2.0)
[2025-02-14] MEDS: RINGERS LACTATED 1000 ML 1,000 ML 999 ML IV (00:47)
[2025-02-14] MEDS: cefTRIAXone 2 GM in SODIUM CHLORIDE 0.9% (Popper) 50 ML IV (01:04)
[2025-02-14] MEDS: Ampicillin Inj 2,000 MG in SODIUM CHLORIDE 0.9% (POP) 100 ML 100 MG IV ×2 (01:31→05:02)
[2025-02-14 03:35] LABS: Reflex Lactate? Y
[2025-02-14 04:51] LABS: Base Excess 1 (-3-3); HCO3 26 mEq/L (20-26); Inspired Oxygen, FIO2 30 %; O2 Saturation 98 % (91-98); PCO2 40 mmHg (32.0-48.0); PO2 82 mmHg (83-108); pH, Arterial 7.42 (7.35-7.45)
[2025-02-14] MEDS: ACETAMINOPHEN 325 MG TABLET 650 MG PO ×2 (04:54→09:54)
[2025-02-14] MEDS: RINGERS LACTATED 1000 ML 1,000 ML 75 ML IV (04:54)
[2025-02-14 04:55] LABS: Allen Test Performed/OK; Puncture Site Right Radial
[2025-02-14] MEDS: SODIUM CHLORIDE 0.9% IV (05:02)
[2025-02-14] MEDS: ACYCLOVIR IV (05:02)
[2025-02-14 05:38] LABS: Lactic Acid, 3 HR 0.8 mMol/L (0.4-2.0)
[2025-02-14 05:42] LABS: Basophils # (Auto) 0.1 Thou/mm3 (0.0-0.2); Basophils % (Auto) 1 % (0-2.5); Eosinophils # (Auto) 0.1 Thou/mm3 (0.0-0.5); Eosinophils % (Auto) 1 % (0-10); Hematocrit 29.8 % (36.0-46.0); Immature Granulocytes % (Auto) 0 % (0-0); Immature Granulocytes Auto 0.04 Thou/mm3 (0.00-0.00); Lymphocytes # (Auto) 0.9 Thou/mm3 (1.0-4.8); Lymphocytes % (Auto) 7 % (10-50); Mean Corpuscular HGB Conc 33.6 g/dl (31.0-37.0); Mean Corpuscular Hemoglobin 29.6 pg (25.0-35.0); Mean Corpuscular Volume 88 fL (80-100); Monocytes # (Auto) 1.6 Thou/mm3 (0.0-0.8); Monocytes % (Auto) 13 % (0-12); Neutrophils # (Auto) 9.3 Thou/mm3 (1.8-7.7); Neutrophils % (Auto) 78 % (37-80); Nucleated Red Blood Cell % 0 /100 WBC (0); Platelet Count 172 Thou/mm3 (140-440); RDW Standard Deviation 46.8 fL (36.4-46.3); Red Blood Count 3.38 Miln/mm3 (4.00-5.20); White Blood Count 11.9 Thou/mm3 (3.6-11.0)
[2025-02-14] MEDS: PROPOFOL 1,000 MG IVPB 1,000 MG/100 ML VIAL 14.288 MG IV (06:02)
[2025-02-14 06:04] LABS: Glucose Estimated Average 114 mg/dL (80-131); Hemoglobin A1C 5.6 % Hgb (4.8-6.0)
[2025-02-14 06:43] LABS: Alanine Aminotransferase 9 U/L (10-49); Albumin, Serum 3.3 gm/dL (3.4-4.8); Albumin/Globulin Ratio 1.4 (1.2-2.2); Alkaline Phosphatase 71 U/L (46-116); Anion Gap 10 (7-16); Aspartate Amino Transferase 12 U/L (0-34); BUN/Creatinine Ratio 11 Ratio (12-20); Bilirubin,Total 0.5 mg/dL (0.3-1.2); Blood Urea Nitrogen 9 mg/dL (9-23); Calcium 8.1 mg/dL (8.3-10.6); Calcium (Corrected) 8.7 mg/dL (8.5-10.1); Carbon Dioxide 22.9 mMol/L (20.0-31.0); Cardiac Risk Estimate 3.1 RATIO (3.7-5.6); Chloride 107 mMol/L (98-107); Cholesterol 114 mg/dL (132-200); Creatinine (Component) 0.8 mg/dL (0.6-1.3); Estimated Creatinine Clearance 78.6 mL/min (>60); Globulin 2.3 gm/dL (2.3-3.5); Glucose 119 mg/dL (74-106); HDL Cholesterol 37 mg/dL (40-60); LDL Cholesterol,Calculated 55 mg/dL (0-130); Magnesium 1.8 mg/dL (1.6-2.6); Osmolality,Calculated 279 (275-295); Phosphorous 2.1 mg/dL (2.4-5.1); Potassium 3.8 mMol/L (3.4-5.1); Sodium 140 mMol/L (136-145); Total Protein 5.6 gm/dL (5.7-8.2); Triglycerides 110 mg/dL (30-150); eGFR > 60 See Note
--- NOTE | 2025-02-14 09:00 | XR_ITS ---
Examination: AP chest single view TECHNIQUE: AP portable supine chest single view Examination type: February 14, 2025 0923 hours Comparison February 13, 2025 INDICATIONS: Hypoxic respiratory failure, reposition tracheal tube FINDINGS: Endotracheal tube now 5.6 cm above Nikolai Enlarged left ventricle again noted Orogastric tube in the stomach satisfactory position. Pneumonia at both lung bases. Mild vascular congestion. No pulmonary edema IMPRESSION: Endotracheal tube tip now 5.6 cm above nikolai. Bibasilar pneumonia
--- NOTE | 2025-02-14 09:22 | PC.NURSE ---
Droplet precautions D/C per MD order. Pt's Blood cultures came back growing gram - rods.
[2025-02-14] MEDS: PANTOPRAZOLE INJ 40 MG VIAL IVP (09:26)
[2025-02-14] MEDS: VANCOMYCIN/D5W 1,250 MG IVPB 250 ML 120 MG IV (09:26)
[2025-02-14] MEDS: cefTRIAXone/D5w 2gm 2 GM/50 ML BAG IV (09:26)
[2025-02-14] MEDS: HEPARIN SOD INJ 5000 UNIT/ML VIAL SC ×2 (09:33→20:07)
--- NOTE | 2025-02-14 10:41 | ESPR_ITS ---
Documentation for date of: 02/14/25 Subjective Subjective Interval history: Patient is a 69-year-old female with a past medical history of dementia secondary to Alzheimer's disease and history of paranoid schizophrenia who presented to the emergency room from home with a chief complaint of of altered mental status over the past 2 days. Most patinet history obtained from patient's son, Darshan, patient has become more confused over the past view days and is no longer to carry on a conversation with increasing non-sensical speech pattern. Decreased urine output over the past two days. December, recent visit to pcp where antibiotic given, Cephalexin, for UTI. Denied recent sick contacts. Denied chills at home. Subjective pyrexia at home. Denied chest pain. Shortness of breath, per patient's son secondary to anxiety at baseline. No seizure like activity. Denied syncopal episodes. Denied recent falls. Denied any hemetemis, no hematochezia, and no melena. Denied cardiac history. 45 pack year history of smoking cigarettes and quit 5 years ago. Denied COPD diagnosis or need for albuterol. Denied wheezing. Remote history of meth use disorder. 02/14/2025: Did not require pressors overnight. Afebrile overnight, did spike fever this morning at 102F. Patient had trial SBT and SAT today, and was extubated succesfully at 12:30. She was very agitated and so was put on precedex drip. Blood cultures grew GNR. CSF studies show proteinuria. Antibiotics were de-esclated to ceftriaxone; likely source of infection is urine. Exam Vital Signs Temp Pulse Resp BP Pulse Ox O2 Del Method FiO2 102.0 F H 77 17 106/59 L 96 Mechanical Ventilation 30 02/14/25 09:54 02/14/25 10:30 02/13/25 19:44 02/14/25 10:30 02/14/25 10:30 02/14/25 04:00 02/14/25 10:30 Narrative Exam Constitutional: Agitated, restless. HEENT: NCAT. Mucous membranes dry. Respiratory: CTAB bilaterally. Cardiac: RRR. Abdomen: Soft, non-distended, non-tender. MSK: No B/L LE edema. Skin: Warm, dry, intact. Stiff extremities, grossly moving all 4 extremities. Neuro: AAO x 0. GCS 13 - [id number] Objective Labs 02/17/25 09:26 02/17/25 09:26 Labs: Laboratory Results - last 24 hr 02/13/25 02/13/25 02/13/25 13:28 13:30 16:00 WBC 13.1 H RBC 3.99 L Hgb 11.7 L Hct 34.3 L MCV 86 MCH 29.3 MCHC 34.1 RDW Std Deviation 45.0 Plt Count 197 Neut % (Auto) 82 H Lymph % (Auto) 6 L [place] % (Auto) 11 Eos % (Auto) 0 Baso % (Auto) 0 Neut # (Auto) 10.8 H Lymph # (Auto) 0.8 L [place] # (Auto) 1.5 H Eos # (Auto) 0.0 Baso # (Auto) 0.1 Immature Gran # (Auto) 0.05 H Absolute Nucleated RBC 0.00 Immature Gran % 0 Nucleated RBC % 0 PT 11.7 INR 1.1 APTT 31.6 Puncture Site ABG pH ABG pCO2 ABG pO2 ABG HCO3 ABG O2 Saturation ABG Base Excess FiO2 Sodium 137 Potassium 3.6 Chloride 103 Carbon Dioxide 21.9 Anion Gap 12 BUN 20 Creatinine 1.0 Estim Creat Clear Calc 67.1 eGFR > 60 BUN/Creatinine Ratio [address]ucose [address] Glu mg/dL Hemoglobin A1c Calculated Osmolality 282 Lactic Acid 2.8 H Calcium 9.2 Corrected Calcium 9.2 Phosphorus 2.1 L Magnesium 1.4 L Total Bilirubin 0.8 AST 12 ALT 13 Alkaline Phosphatase 73 Lactate Dehydrogenase 157 Troponin I < 0.020 B-Natriuretic Peptide 116 H Total Protein 6.8 Albumin 4.1 Globulin 2.7 Albumin/Globulin Ratio 1.5 Triglycerides Cholesterol LDL Cholesterol, Calc HDL Cholesterol Cholesterol/HDL Ratio Lipase 25 Procalcitonin 0.24 Ur Collection Type Clean Catch Urine Color Lt-Yellow Urine Clarity Cloudy A Urine pH 5.5 Ur Specific [place] 1.012 Urine Protein Trace Urine Glucose (UA) Negative Urine Ketones Negative Urine Blood Trace Urine Nitrite Positive Urine Bilirubin Negative Urine Urobilinogen (Auto) Negative Ur Leukocyte Esterase Positive Urine RBC 2 Urine WBC 85 H Ur Squamous Epith Cells 1 Urine Bacteria 4+ A CSF Appearance Clear CSF Color Colorless CSF WBC 1 CSF RBC 0 CSF Cell Count Tube # Tube # 4 CSF Mononuclear WBCs 0 CSF Polynuclear WBCs 100 CSF Glucose 107 H CSF Total Protein 59 H Urine Opiates Screen Negative Urine Fentanyl Screen Negative Ur Barbiturates Screen Negative U Amphetamin/Meth Scrn Negative U Benzodiazepines Scrn Negative U Cocaine Metab Screen Negative U Marijuana (THC) Screen Negative Urine Alcohol Negative 02/13/25 02/13/25 02/13/25 16:20 17:45 21:59 WBC RBC Hgb Hct MCV MCH MCHC RDW Std Deviation Plt Count Neut % (Auto) Lymph % (Auto) [place] % (Auto) Eos % (Auto) Baso % (Auto) Neut # (Auto) Lymph # (Auto) [place] # (Auto) Eos # (Auto) Baso # (Auto) Immature Gran # (Auto) Absolute Nucleated RBC Immature Gran % Nucleated RBC % PT INR APTT Puncture Site Left Radial ABG pH 7.39 ABG pCO2 41 ABG pO2 138 H ABG HCO3 25 ABG O2 Saturation 100 H ABG Base Excess 0 FiO2 50 Sodium Potassium Chloride Carbon Dioxide Anion Gap BUN Creatinine Estim Creat Clear Calc eGFR BUN/Creatinine Ratio Glucose Estimated Ave Glu mg/dL Hemoglobin A1c Calculated Osmolality Lactic Acid 2.1 H 3.4 H Calcium Corrected Calcium Phosphorus Magnesium Total Bilirubin AST ALT Alkaline Phosphatase Lactate Dehydrogenase Troponin I B-Natriuretic Peptide Total Protein Albumin Globulin Albumin/Globulin Ratio Triglycerides Cholesterol LDL Cholesterol, Calc HDL Cholesterol Cholesterol/HDL Ratio Lipase Procalcitonin Ur Collection Type Urine Color Urine Clarity Urine pH Ur Specific [place] Urine Protein Urine Glucose (UA) Urine Ketones Urine Blood Urine Nitrite Urine Bilirubin Urine Urobilinogen (Auto) Ur Leukocyte Esterase Urine RBC Urine WBC Ur Squamous Epith Cells Urine Bacteria CSF Appearance CSF Color CSF WBC CSF RBC CSF Cell Count Tube # CSF Mononuclear WBCs CSF Polynuclear WBCs CSF Glucose CSF Total Protein Urine Opiates Screen Urine Fentanyl Screen Ur Barbiturates Screen U Amphetamin/Meth Scrn U Benzodiazepines Scrn U Cocaine Metab Screen U Marijuana (THC) Screen Urine Alcohol 02/14/25 02/14/25 02/14/25 00:30 04:38 05:30 WBC 11.9 H RBC 3.38 L Hgb 10.0 L Hct 29.8 L MCV 88 MCH 29.6 MCHC 33.6 RDW Std Deviation 46.8 H Plt Count 172 Neut % (Auto) 78 Lymph % (Auto) 7 L [place] % (Auto) 13 H Eos % (Auto) 1 Baso % (Auto) 1 Neut # (Auto) 9.3 H Lymph # (Auto) 0.9 L [place] # (Auto) 1.6 H Eos # (Auto) 0.1 Baso # (Auto) 0.1 Immature Gran # (Auto) 0.04 H Absolute Nucleated RBC 0.00 Immature Gran % 0 Nucleated RBC % 0 PT INR APTT Puncture Site Right Radial ABG pH 7.42 ABG pCO2 40 ABG pO2 82 L D ABG HCO3 26 ABG O2 Saturation 98 ABG Base Excess 1 FiO2 30 Sodium 140 Potassium 3.8 Chloride 107 Carbon Dioxide 22.9 Anion Gap 10 BUN 9 Creatinine 0.8 Estim Creat Clear Calc 78.6 eGFR > 60 BUN/Creatinine Ratio 11 L Glucose [address] Glu mg/dL 114 Hemoglobin A1c 5.6 Calculated Osmolality 279 Lactic Acid 2.1 H 0.8 Calcium 8.1 L Corrected Calcium 8.7 Phosphorus 2.1 L Magnesium 1.8 Total Bilirubin 0.5 AST 12 ALT 9 L Alkaline Phosphatase 71 Lactate Dehydrogenase Troponin I B-Natriuretic Peptide Total Protein 5.6 L Albumin 3.3 L D Globulin 2.3 Albumin/Globulin Ratio 1.4 Triglycerides 110 Cholesterol 114 L LDL Cholesterol, Calc 55 HDL Cholesterol 37 L Cholesterol/HDL Ratio 3.1 L Lipase Procalcitonin Ur Collection Type Urine Color Urine Clarity Urine pH Ur Specific [place] Urine Protein Urine Glucose (UA) Urine Ketones Urine Blood Urine Nitrite Urine Bilirubin Urine Urobilinogen (Auto) Ur Leukocyte Esterase Urine RBC Urine WBC Ur Squamous Epith Cells Urine Bacteria CSF Appearance CSF Color CSF WBC CSF RBC CSF Cell Count Tube # CSF Mononuclear WBCs CSF Polynuclear WBCs CSF Glucose CSF Total Protein Urine Opiates Screen Urine Fentanyl Screen Ur Barbiturates Screen U Amphetamin/Meth Scrn U Benzodiazepines Scrn U Cocaine Metab Screen U Marijuana (THC) Screen Urine Alcohol ABG Interpretation ABG results: 02/13/25 02/14/25 16:20 04:38 ABG pH 7.39 7.42 ABG pCO2 41 40 ABG pO2 138 H 82 L D ABG HCO3 25 26 ABG O2 Saturation 100 H 98 ABG Base Excess 0 1 Quality Measures Quality Measures sepsis Current suspected stage: sepsis Possible source: genitourinary Blood cultures ordered: completed in ED Antibiotic ordered: Yes Advance care planning discussed with:: child Assessment & Plan Assessment Current Active Medications: Generic Name Dose Route Start Last Admin Trade Name Freq PRN Reason Stop Dose Admin Acetaminophen 650 mg 02/13/25 14:15 02/14/25 04:54 Acetaminophen 325 Mg Tablet PO 03/15/25 14:14 650 mg Q6H PRN Administration Mild Pain 1-3 or Fever >100.3 Dextrose 25 ml 02/13/25 17:33 Dextrose 50%-Water Inj 50 Ml Syringe IV 03/15/25 17:32 Q15MIN PRN BG 50-70 responsive npo pt Dextrose 50 ml 02/13/25 17:33 Dextrose 50%-Water Inj 50 Ml Syringe IV 03/15/25 17:32 Q15MIN PRN BG <50 OR BG <70 & pt unresponsive Glucagon 1 mg 02/13/25 17:33 Glucagon Inj 1 Mg Vial IM Q15MIN PRN BG <70, and no IV access Heparin Sodium (Porcine) 5,000 unit 02/13/25 21:00 02/14/25 09:33 Heparin Sod Inj 5000 Unit/Ml Vial SC 02/27/25 20:59 5,000 unit Q12HR [place] Administration Fentanyl Citrate 2,500 mcg in 250 mls @ 2.5 mls/hr 02/13/25 13:29 02/14/25 10:00 Sublimaze Inj 2,500 Mcg/250 Ml Bag IV 02/18/25 13:28 75 mcg/hr .Q24H PRN 7.5 mls/hr PER PROTOCOL Titration Protocol 25 MCG/HR Lactated Ringer's 1,000 mls @ 75 mls/hr 02/13/25 14:15 02/14/25 04:54 Lactated Ringers IV 03/15/25 14:14 75 mls/hr .[id number] [place] Administration Propofol 1,000 mg in 100 mls @ 2.858 mls/hr 02/13/25 14:22 02/14/25 10:00 Diprivan Ivpb IV 03/15/25 14:21 20 mcg/kg/min .Q24H PRN 11.43 mls/hr PER PROTOCOL Titration Protocol 5 MCG/KG/MIN Vancomycin HCl/Dextrose 250 mls @ 120 mls/hr 02/14/25 10:00 02/14/25 09:26 Vancomycin/D5w 1,250 Mg Ivpb IV 02/21/25 09:59 120 mls/hr DAILY@1000 [place] Administration Ceftriaxone Sodium/Dextrose 2 gm in 50 mls @ 100 mls/hr 02/14/25 09:00 02/14/25 09:26 Rocephin/D5w 2gm IV 02/21/25 08:59 100 mls/hr Q12HR [place] Administration Insulin Human Lispro 0 unit 02/13/25 18:00 02/14/25 05:01 Insulin Lispro (Admelog) 1 Unit/0.01 Ml Unit SC 03/15/25 17:59 Not Given Q6HR [place] Protocol Ondansetron HCl 4 mg 02/13/25 14:15 Ondansetron Inj 2 Mg/Ml Inj 2 Ml IV 03/15/25 14:14 Q6H PRN NAUSEA OR VOMITING Protocol Pantoprazole Sodium 40 mg 02/13/25 14:30 02/14/25 09:26 Pantoprazole Inj 40 Mg Vial IVP 03/15/25 14:29 40 mg QDAY [place] Administration Pharmacy Consult 1 each 02/14/25 09:00 Vancomycin Pharmacy To Dose 1 Each Each IV 03/16/25 08:59 QDAY PRN CONSULT Sennosides 1 tab 02/13/25 14:15 Senna Tablet GT 03/15/25 14:14 QDAY PRN constipation Protocol Plan 67-year-old female past medical history of chronic dementia admitted to the hospital for acute on chronic encephalopathy. 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 RENAL No acute problems GI No acute problems Start diet once pass swallow screen ENDO No acute problems HEME Leukocytosis, improving Chronic normocytic anemia - Iron panel ordered ID Sepsis due to UTI and GNR Bacteremia UA showed pyuria, bacteuria, leuk esterase - Deescalate antibiotics as meningitis less likely; stop ampicillin, acyclovir, vancomcyin - Continue ceftriaxone - Follow up blood and urine cultures - Follow up CSF studies Health Maintenance Disposition: Admit to ICU for acute on chronic encephalopathy Diet and fluids: NPO DVT prophylaxis: heparin GI prophylaxis: protonix Lines: NC, PIV, [place] CODE STATUS: FULL I have reviewed and discussed the patient's care with my attending, Dr. Alem Montiel MD PGY-3 Attending Provider Attestation/Addendum Patient seen and examined with above resident, Roberta Montiel MD. I agree with the findings, assessment, and plan of care as documented except for any differences below. Patient tolerated spontaneous awake trial this morning and successfully weaned after SBT. Blood culture showing gram-negative claudia consistent with likely urinary tract source. Agree with de-escalation of antibiotics with no longer requirement for coverage of TECHNICAL EDITOR infection. HSV coverage would likely be of limited use given neurologic status has resolved with appropriate source control from genitourinary source. Patient continues to have Cook in place with adequate output. Additional history from family suggestive of frequent urinary retention in the setting of her dementia. Notably on exam did have significant rigidity though this may be her baseline as there is some concern for parkinsonism versus Alzheimer's dementia but this may need further delineation and longer. Nonetheless, patient significantly agitated postextubation and was initiated on Precedex by residents with adequate control. Mitts remain in place so that she does not inadvertently hurt herself or staff. Patient will continue on ceftriaxone for now as we await speciation and this will likely be adequate for coverage with transition to the medicine hardwick in the coming 24 hours. Total critical care time: I personally spent 40 minutes for review of physiologic parameters, directing plan of care throughout the day, coordination of care with other specialists, and counseling patient's family. This is exclusive of time spent teaching housestaff performing separate billable procedures. Patient remains at significant risk for further morbidity and mortality warranting close monitoring and care only available in the intensive care unit. Patient requiring critical care services for acute toxic encephalopathy, severe sepsis secondary to urinary tract infection and gram- negative bacteremia, and acute hypoxic respiratory failure.
[2025-02-14] MEDS: DEXMEDETOMIDINE 400 MCG IVPB 400 MCG/100 ML BAG IV (13:05)
[2025-02-14] MEDS: HALOPERIDOL LACT INJ 5 MG/ML VIAL 2.5 MG IV (13:34)
[2025-02-14] MEDS: DEXMEDETOMIDINE 400 MCG IVPB 400 MCG/100 ML BAG 28.21 MCG IV (16:19)
[2025-02-14] MEDS: SODIUM CHLORIDE 0.9% 1000 ML 1,000 ML 999 ML IV (18:27)
[2025-02-14] MEDS: cefTRIAXone/D5w 1gm IV premix 1 GM/50 ML BAG IV (20:07)
[2025-02-14] MEDS: DEXMEDETOMIDINE 400 MCG IVPB 400 MCG/100 ML BAG 12.09 MCG IV (22:25)
[2025-02-15] VITALS (59 sets, daily range): BP systolic 93–154; BP diastolic 65–94; PULSE 55–147; RESP 18–20; TEMP 36.2–37.1; O2SAT 92–100; BMI 26.3
--- NOTE | 2025-02-15 00:37 | PC.NURSE ---
[address] Santillan that patient is agitated, yelling out already on Precedex, New orders received
[2025-02-15] MEDS: HALOPERIDOL LACT INJ 5 MG/ML VIAL IV (00:41)
--- NOTE | 2025-02-15 00:51 | EKG_ITS ---
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
--- NOTE | 2025-02-15 04:37 | PC.NURSE ---
[address] Santillan that heart rate is dropping into the 40's patient asleep on sedation. No new orders will consult cardiology in the am.
[2025-02-15] MEDS: DEXMEDETOMIDINE 400 MCG IVPB 400 MCG/100 ML BAG 12.09 MCG IV (05:11)
--- NOTE | 2025-02-15 06:31 | PC.NURSE ---
0620 pt had a 3 second pause and a 2 second pause within one minute Dr Santillan was on unit at time and is aware.
[2025-02-15] MEDS: PANTOPRAZOLE INJ 40 MG VIAL IVP (08:26)
[2025-02-15] MEDS: PIPER/TAZO 3.375 GM PREMIX 3.375 GM/50 ML BAG IV ×3 (08:27→21:15)
[2025-02-15] MEDS: HEPARIN SOD INJ 5000 UNIT/ML VIAL SC ×2 (08:27→20:40)
--- NOTE | 2025-02-15 09:07 | PD.RESPRO ---
Documentation for date of: 02/15/25 Subjective Subjective Interval history: Patient is a 69-year-old female with a past medical history of dementia secondary to Alzheimer's disease and history of paranoid schizophrenia who presented to the emergency room from home with a chief complaint of of altered mental status over the past 2 days. Most patinet history obtained from patient's son, Darshan, patient has become more confused over the past view days and is no longer to carry on a conversation with increasing non-sensical speech pattern. Decreased urine output over the past two days. December, recent visit to pcp where antibiotic given, Cephalexin, for UTI. Denied recent sick contacts. Denied chills at home. Subjective pyrexia at home. Denied chest pain. Shortness of breath, per patient's son secondary to anxiety at baseline. No seizure like activity. Denied syncopal episodes. Denied recent falls. Denied any hemetemis, no hematochezia, and no melena. Denied cardiac history. 45 pack year history of smoking cigarettes and quit 5 years ago. Denied COPD diagnosis or need for albuterol. Denied wheezing. Remote history of meth use disorder. 02/14/2025: Did not require pressors overnight. Afebrile overnight, did spike fever this morning at 102F. Patient had trial SBT and SAT today, and was extubated succesfully at 12:30. She was very agitated and so was put on precedex drip. Blood cultures grew GNR. CSF studies show proteinuria. Antibiotics were de-esclated to ceftriaxone; likely source of infection is urine. 02/15/2025: Overnight, patient was given a one time dose of Haloperidol 5 mg X 1. Patient at baseline has dementia and likely component of delirium in the setting of Sepsis secondary to UTI and bacteremia. Speech evaluation-Dysphagia 1 diet. Restarted Quetiapine at a lower dose from home dose at 200 mg BID. Holding Benztropine as it may cause urinary retention, please do bladder training then restart benztropine. Zosyn added as urine culture resistant to most antibiotics, consider Ciprofloxacin PO outpatient to complete 14 day course for bacteremia. Stopped sliding scale as A1c within normal range. Updated family that patient would be downgraded and to consider SNF as patient's dementia likely worsening. Son and daughter would like to continue care for patient at home. Consider in and out upon discharge for home. May benefit from home health. settlement worker referral. Consider PT referral. Exam Vital Signs Temp Pulse Resp BP Pulse Ox O2 Del Method O2 Flow Rate 97.8 F 62 18 150/74 H 99 Nasal Cannula 5 02/15/25 04:01 02/15/25 08:55 02/15/25 04:01 02/15/25 08:00 02/15/25 08:55 02/15/25 02:03 02/15/25 02:03 FiO2 30 02/14/25 12:00 Narrative Exam General Appearance: Alert & Oriented X0, well-nourished female who is lying in bed in midl distres secondary to delirium and dementia. HEENT: Skull symmetrical and atraumatic. Conjunctivae pale pink and moist. Pupils equal, round, reactive to light and accommodation (PERRL). External ear without lesion or discharge. Straight, nares patient, mucosa pink, no discharge. Cardio: Normal Rate and Rhythm with S1 and S2 heart sounds. No murmurs or extra heart sounds auscultated. No bruits on carotid auscultation. No peripheral edema or cyanosis. Lungs: Symmetric expansion Breath sounds vesicular without crackles, wheezing or rhonchi Abdomen: Non-tender, Non-distended, Hypo- Reactive Bowel Sounds Neuro: Yes Alert, NO cooperative,NO oriented to person, NO place, and NO time. Motor strength 5/5 upper. and lower 3/5. Objective Labs 02/16/25 06:40 02/16/25 06:40 ABG Interpretation ABG results: 02/13/25 02/14/25 16:20 04:38 ABG pH 7.39 7.42 ABG pCO2 41 40 ABG pO2 138 H 82 L D ABG HCO3 25 26 ABG O2 Saturation 100 H 98 ABG Base Excess 0 1 Quality Measures Quality Measures sepsis Current suspected stage: ruled out Possible source: genitourinary Blood cultures ordered: completed in ED Antibiotic ordered: Yes Advance care planning discussed with:: patient Assessment & Plan Assessment Current Active Medications: Generic Name Dose Route Start Last Admin Trade Name Freq PRN Reason Stop Dose Admin Acetaminophen 650 mg 02/13/25 14:15 02/14/25 04:54 Acetaminophen 325 Mg Tablet PO 03/15/25 14:14 650 mg Q6H PRN Administration Mild Pain 1-3 or Fever >100.3 Dextrose 25 ml 02/13/25 17:33 Dextrose 50%-Water Inj 50 Ml Syringe IV 03/15/25 17:32 Q15MIN PRN BG 50-70 responsive npo pt Dextrose 50 ml 02/13/25 17:33 Dextrose 50%-Water Inj 50 Ml Syringe IV 03/15/25 17:32 Q15MIN PRN BG <50 OR BG <70 & pt unresponsive Glucagon 1 mg 02/13/25 17:33 Glucagon Inj 1 Mg Vial IM Q15MIN PRN BG <70, and no IV access Heparin Sodium (Porcine) 5,000 unit 02/13/25 21:00 02/15/25 08:27 Heparin Sod Inj 5000 Unit/Ml Vial SC 02/27/25 20:59 5,000 unit Q12HR [place] Administration Dexmedetomidine/Sodium Chloride 400 mcg in 100 mls @ 4.03 mls/hr 02/14/25 12:47 02/15/25 05:11 Precedex Ivpb IV 03/16/25 12:46 0.6 mcg/kg/hr .Q24H PRN 12.09 mls/hr Per PROTOCOL Administration Protocol 0.2 MCG/KG/HR Piperacillin/Tazobactam/Dextrose 3.375 gm in 50 mls @ 12.5 mls/hr 02/15/25 14:00 Zosyn IV 02/22/25 13:59 Q8HR [place] Protocol Insulin Human Lispro 0 unit 02/13/25 18:00 02/15/25 05:17 Insulin Lispro (Admelog) 1 Unit/0.01 Ml Unit SC 03/15/25 17:59 Not Given Q6HR [place] Protocol Ondansetron HCl 4 mg 02/13/25 14:15 Ondansetron Inj 2 Mg/Ml Inj 2 Ml IV 03/15/25 14:14 Q6H PRN NAUSEA OR VOMITING Protocol Pantoprazole Sodium 40 mg 02/13/25 14:30 02/15/25 08:26 Pantoprazole Inj 40 Mg Vial IVP 03/15/25 14:29 40 mg QDAY [place] Administration Sennosides 1 tab 02/13/25 14:15 Senna Tablet GT 03/15/25 14:14 QDAY PRN constipation Protocol Plan 67-year-old female past medical history of chronic dementia admitted to the hospital for acute on chronic encephalopathy. 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 - Frequent reorientation - CSF studies pending CARDIOVASCULAR Asymptomatic Bradycardia Likely in the setting of precedex for agitation, which was d/c on 02/15/2025. RESPIRATORY No acute problems Intubated 02/13 due to encephalopathy and inability to protect airways, extubated 02/14. RENAL No acute problems GI No acute problems Dysphagia diet. ENDO No acute problems HEME Leukocytosis, improving Chronic normocytic anemia. Iron panel: Iron 7, TIBC 202, Iron Saturation 3, Unsat Iron 195 Ferrous sulfate every other day, please monitor for constipation ID Sepsis due to UTI and GNR Bacteremia UA showed pyuria, bacteuria, leuk esterase - Deescalate antibiotics as meningitis less likely; stop ampicillin, acyclovir, vancomcyin. Ceftriaxone stopped culture. - Continue Zosyn day 1 (02/15/2025-03/01/2025), 14 days. - Pending CSF Enteroviurs, Herpes, and [place] Health Maintenance Disposition: Admit to ICU for acute on chronic encephalopathy Diet and fluids: Dysphagia Diet 1 DVT prophylaxis: heparin GI prophylaxis: protonix Lines: NC, PIV, [place] CODE STATUS: FULL - The patient's plan was discussed with attending Dr. Alem Bravo MD PGY1 Internal Medicine Attending Provider Attestation/Addendum Patient seen and examined with the resident, Mary Bravo MD. I agree with the findings, assessment, and plan of care as documented except for any differences below. Patient successfully extubated yesterday and monitored overnight. Agitation notable given underlying history of parkinsonism/dementia potentially. Patient did receive Haldol and remains stable today. Patient hemodynamically stable with no fevers. Remains on appropriate antibiotic regimen for urinary tract infection and severe sepsis secondary to this. Follow-up on cultures today showed multidrug-resistant organism with sensitivity to Zosyn, which was initiated today. Patient continues to have Cook in place for close monitoring of output. Patient remains stable for transfer to medicine service for ongoing management prior to discharge in coming days. Total critical care time: I personally spent 30 minutes for review of physiologic parameters, directing plan of care throughout the day, coordination of care with other specialists, and counseling patient's family at bedside. This is exclusive of time spent teaching housestaff or performing any separate billable procedures. Patient required critical care services for severe sepsis secondary to urinary tract infection. She remained at significant risk for further morbidity and mortality warranting the close monitoring and care she received in the intensive care unit.
[2025-02-15 10:27] LABS: Basophils # (Auto) 0.1 Thou/mm3 (0.0-0.2); Basophils % (Auto) 1 % (0-2.5); Eosinophils # (Auto) 0.1 Thou/mm3 (0.0-0.5); Eosinophils % (Auto) 1 % (0-10); Hematocrit 32.6 % (36.0-46.0); Immature Granulocytes % (Auto) 1 % (0-0); Immature Granulocytes Auto 0.04 Thou/mm3 (0.00-0.00); Lymphocytes # (Auto) 0.7 Thou/mm3 (1.0-4.8); Lymphocytes % (Auto) 9 % (10-50); Mean Corpuscular HGB Conc 33.7 g/dl (31.0-37.0); Mean Corpuscular Hemoglobin 29.3 pg (25.0-35.0); Mean Corpuscular Volume 87 fL (80-100); Monocytes # (Auto) 0.9 Thou/mm3 (0.0-0.8); Monocytes % (Auto) 12 % (0-12); Neutrophils % (Auto) 77 % (37-80); Nucleated Red Blood Cell % 0 /100 WBC (0); Platelet Count 182 Thou/mm3 (140-440); RDW Standard Deviation 42.5 fL (36.4-46.3); Red Blood Count 3.76 Miln/mm3 (4.00-5.20); White Blood Count 7.7 Thou/mm3 (3.6-11.0)
[2025-02-15 10:45] LABS: Iron 7 mcg/dL (50-170); Percent Iron Saturation 3 % (20-55); Total Iron Binding Capacity 202 mcg/dL (250-425); Unsaturated Iron Binding 195 (225-295)
[2025-02-15 10:56] LABS: Alanine Aminotransferase 16 U/L (10-49); Albumin, Serum 3.8 gm/dL (3.4-4.8); Albumin/Globulin Ratio 1.5 (1.2-2.2); Alkaline Phosphatase 91 U/L (46-116); Anion Gap 11 (7-16); Aspartate Amino Transferase 26 U/L (0-34); BUN/Creatinine Ratio 13 Ratio (12-20); Bilirubin,Total 0.4 mg/dL (0.3-1.2); Blood Urea Nitrogen 10 mg/dL (9-23); Calcium 9.1 mg/dL (8.3-10.6); Calcium (Corrected) 9.3 mg/dL (8.5-10.1); Carbon Dioxide 26.7 mMol/L (20.0-31.0); Chloride 107 mMol/L (98-107); Creatinine (Component) 0.8 mg/dL (0.6-1.3); Globulin 2.6 gm/dL (2.3-3.5); Glucose 131 mg/dL (74-106); Magnesium 1.8 mg/dL (1.6-2.6); Osmolality,Calculated 289 (275-295); Phosphorous 2.7 mg/dL (2.4-5.1); Potassium 3.7 mMol/L (3.4-5.1); Sodium 145 mMol/L (136-145); Total Protein 6.4 gm/dL (5.7-8.2); eGFR > 60 See Note
--- NOTE | 2025-02-15 13:42 | ESPR_ITS ---
Documentation for date of: 02/15/25 Subjective Subjective Interval history: Анна Pickens is a 69-year-old female with a past medical history of dementia secondary to Alzheimer disease, paranoid depression, who is disfluent at baseline presented on 02/13 due to acute encephalopathy and decreased urine output for a couple days duration. Upon arrival to ED, GCS of 9 with SBP of 98, temperature 103 ?F and so patient was intubated and admitted to the ICU. Urine culture on 02/13 positive for ESBL E. coli and blood culture positive for GNR in 1 of 2 bottles, currently on Zosyn. Now extubated and passed swallow screen, so downgraded to floors on 02/15. Spoke to son over the phone who states that patient cannot articulate words, only recognizes him and other family intermittently, but is alert and does respond to some questions with simple yes and no answers. Exam Vital Signs Temp Pulse Resp BP Pulse Ox O2 Del Method O2 Flow Rate 98.7 F 60 19 127/79 95 Nasal Cannula 6 02/15/25 08:00 02/15/25 13:38 02/15/25 13:38 02/15/25 12:01 02/15/25 13:38 02/15/25 02:03 02/15/25 13:38 FiO2 30 02/14/25 12:00 Narrative Exam General: Alert to voice, responds to questions with unintelligible words HEENT: NC/AT, mucous membranes moist Cardiovascular: regular rate and rhythm, S1/S2 present, no murmurs appreciated Pulmonary: clear to auscultation bilaterally, no rales/rhonchi/wheezes Abdominal: soft, non-tender, non-distended, no rebound/guarding, normal bowel sounds present Musculoskeletal: normal ROM, no peripheral edema Skin: warm and dry, intact, no rashes Neuro: unable to assess Objective Labs 02/16/25 06:40 02/16/25 06:40 Labs: Laboratory Results - last 24 hr 02/15/25 08:00 WBC 7.7 RBC 3.76 L Hgb 11.0 L Hct 32.6 L MCV 87 MCH 29.3 MCHC 33.7 RDW Std Deviation 42.5 Plt Count 182 Neut % (Auto) 77 Lymph % (Auto) 9 L [place] % (Auto) 12 Eos % (Auto) 1 Baso % (Auto) 1 Neut # (Auto) 6.0 Lymph # (Auto) 0.7 L [place] # (Auto) 0.9 H Eos # (Auto) 0.1 Baso # (Auto) 0.1 Immature Gran # (Auto) 0.04 H Absolute Nucleated RBC 0.00 Immature Gran % 1 H Nucleated RBC % 0 Sodium 145 Potassium 3.7 Chloride 107 Carbon Dioxide 26.7 Anion Gap 11 BUN 10 Creatinine 0.8 Estim Creat Clear Calc 76.0 eGFR > 60 BUN/Creatinine Ratio 13 Glucose 131 H Calculated Osmolality 289 Calcium 9.1 Corrected Calcium 9.3 Phosphorus 2.7 Magnesium 1.8 Iron 7 L TIBC 202 L Iron Saturation 3 L Unsat Iron Binding 195 L Total Bilirubin 0.4 AST 26 ALT 16 Alkaline Phosphatase 91 D Total Protein 6.4 Albumin 3.8 D Globulin 2.6 Albumin/Globulin Ratio 1.5 ABG Interpretation ABG results: 02/13/25 02/14/25 16:20 04:38 ABG pH 7.39 7.42 ABG pCO2 41 40 ABG pO2 138 H 82 L D ABG HCO3 25 26 ABG O2 Saturation 100 H 98 ABG Base Excess 0 1 Quality Measures Quality Measures sepsis Current suspected stage: ruled out Possible source: genitourinary Blood cultures ordered: completed in ED Antibiotic ordered: Yes Advance care planning discussed with:: patient Assessment & Plan Assessment Current Active Medications: Generic Name Dose Route Start Last Admin Trade Name Freq PRN Reason Stop Dose Admin Acetaminophen 650 mg 02/13/25 14:15 02/14/25 04:54 Acetaminophen 325 Mg Tablet PO 03/15/25 14:14 650 mg Q6H PRN Administration Mild Pain 1-3 or Fever >100.3 Dextrose 25 ml 02/13/25 17:33 Dextrose 50%-Water Inj 50 Ml Syringe IV 03/15/25 17:32 Q15MIN PRN BG 50-70 responsive npo pt Dextrose 50 ml 02/13/25 17:33 Dextrose 50%-Water Inj 50 Ml Syringe IV 03/15/25 17:32 Q15MIN PRN BG <50 OR BG <70 & pt unresponsive Glucagon 1 mg 02/13/25 17:33 Glucagon Inj 1 Mg Vial IM Q15MIN PRN BG <70, and no IV access Heparin Sodium (Porcine) 5,000 unit 02/13/25 21:00 02/15/25 08:27 Heparin Sod Inj 5000 Unit/Ml Vial SC 02/27/25 20:59 5,000 unit Q12HR [place] Administration Dexmedetomidine/Sodium Chloride 400 mcg in 100 mls @ 4.03 mls/hr 02/14/25 12:47 02/15/25 05:11 Precedex Ivpb IV 03/16/25 12:46 0.6 mcg/kg/hr .Q24H PRN 12.09 mls/hr Per PROTOCOL Administration Protocol 0.2 MCG/KG/HR Piperacillin/Tazobactam/Dextrose 3.375 gm in 50 mls @ 12.5 mls/hr 02/15/25 14:00 Zosyn IV 02/22/25 13:59 Q8HR [place] Protocol Insulin Human Lispro 0 unit 02/13/25 18:00 02/15/25 05:17 Insulin Lispro (Admelog) 1 Unit/0.01 Ml Unit SC 03/15/25 17:59 Not Given Q6HR [place] Protocol Ondansetron HCl 4 mg 02/13/25 14:15 Ondansetron Inj 2 Mg/Ml Inj 2 Ml IV 03/15/25 14:14 Q6H PRN NAUSEA OR VOMITING Protocol Pantoprazole Sodium 40 mg 02/13/25 14:30 02/15/25 08:26 Pantoprazole Inj 40 Mg Vial IVP 03/15/25 14:29 40 mg QDAY [place] Administration Quetiapine Fumarate 200 mg 02/15/25 13:15 Quetiapine Fumarate 100 Mg Tablet PO 03/17/25 13:14 BID [place] Sennosides 1 tab 02/13/25 14:15 Senna Tablet GT 03/15/25 14:14 QDAY PRN constipation Protocol Plan Анна Pickens is a 69-year-old female with a past medical history of dementia secondary to Alzheimer disease, paranoid depression, who is disfluent at baseline presented on 02/13 due to acute encephalopathy and decreased urine output for a couple days duration. Upon arrival to ED, GCS of 9 with SBP of 98, temperature 103 ?F and so patient was intubated and admitted to the ICU withou requiring pressors. Urine culture on 02/13 positive for ESBL E. coli and blood culture positive for GNR in 1 of 2 bottles, currently on Zosyn. Now extubated and passed swallow screen, so downgraded to floors on 02/15. #Sepsis secondary to #Acute on chronic encephalopathy secondary to #Complicated UTI #Lactic acidosis Presented with acute encephalopathy likely secondary to ESBL E. coli UTI causing sepsis. Due to GCS of 9 patient was intubated for airway protection but extubated on 02/14, passed follow screen. Per son, at baseline patient intermittently recognizes family, cannot articulate words other than yes and no. UA showed pyuria, bacteriuria, positive leukocyte esterase. Urine cultures grew ESBL E. coli. Blood cultures grew GNR in 1 of 2 bottles. Originally treated for possible meningitis but since has been de-escalated and currently on Zosyn per sensitivities. Also previously on ceftriaxone which organism was resistant to. Per speech therapy note, tolerated all trials of puree, minced and moist, and thin liquids during evaluation without signs/symptoms of aspiration. As for medications, recommended crushed in puree. ? Zosyn 3.375 g every 8 hours (02/15-) ? Pending blood culture speciation and sensitivities ? Consider repeat blood cultures if symptoms persist, repeat fevers, etc. ? CSF studies pending #History of ? Alzheimer's vs Parkinsons dementia #History of paranoid schizophrenia ? Quetiapine 20 mg p.o. twice daily (patient takes 400 mg BID at home) ? Restarted lorazepam 0.5 mg p.o. 3 times daily as needed for anxiety ? Restarted benztropine 1 mg p.o. at bedtime #Iron deficiency anemia #Normocytic anemia ? Follow-up ferritin, pending results may start iron unless signs of anemia of chronic disease #Hyperglycemia ? SSI AC ? Hypoglycemic protocol in place Hospital management: Disposition: pending blood culture speciation and sensitivities; IV antibiotics Fluids: none Diet: dysphagia 1 - pureed Lines: PIV DVT prophylaxis: heparin SC BID GI prophylaxis: pantoprazole 40 mg IV daily Cook: placed CODE STATUS: full code ----- Plan discussed with attending physician Dr. Clare Urbina MD PGY-1 Internal Medicine Attending Provider Attestation/Addendum I reviewed labs, imaging, EKG, home medications and prior available records. Face to face evaluation was performed by me. I have personally examined the patient and discussed assessment and plan with the IM team. I reviewed the resident note and agree with the plan with exceptions as below. History of dementia Acute encephalopathy, requiring intubation to protect airways Acute hypoxic respiratory failure, status post intubation, s/p extubation and ICU downgrade ESBL E. coli UTI Gram-negative bacteremia Leukocytosis Atrial fibrillation with RVR Downgraded from ICU Continue IV Zosyn Follow-up blood culture: Showed gram-negative rods Trend WBC: Downtrending Continue quetiapine Continue benzodiazepine as needed Discontinue mittens once less agitated
[2025-02-15] MEDS: QUEtiapine FUMARATE 100 MG TABLET 200 MG PO ×2 (14:53→20:34)
[2025-02-15 15:15] LABS: Ferritin 257 ng/mL (7.3-270.7)
[2025-02-15] MEDS: FERROUS SULF 325 MG TABLET PO (17:59)
[2025-02-15] MEDS: BENZTROPINE 0.5 MG TABLET 1 MG PO (20:34)
[2025-02-16] VITALS (10 sets, daily range): BP systolic 99–153; BP diastolic 53–90; PULSE 73–107; RESP 12–23; TEMP 36.1–36.4; O2SAT 93–99; BMI 27.3; BMI 12.0
[2025-02-16] MEDS: PIPER/TAZO 3.375 GM PREMIX 3.375 GM/50 ML BAG IV (05:05)
[2025-02-16 06:59] LABS: Basophils # (Auto) 0.1 Thou/mm3 (0.0-0.2); Basophils % (Auto) 1 % (0-2.5); Eosinophils # (Auto) 0.1 Thou/mm3 (0.0-0.5); Eosinophils % (Auto) 2 % (0-10); Hematocrit 32.3 % (36.0-46.0); Hemoglobin 11.2 g/dL (12.0-16.0); Immature Granulocytes % (Auto) 0 % (0-0); Immature Granulocytes Auto 0.01 Thou/mm3 (0.00-0.00); Lymphocytes # (Auto) 0.7 Thou/mm3 (1.0-4.8); Lymphocytes % (Auto) 13 % (10-50); Mean Corpuscular HGB Conc 34.7 g/dl (31.0-37.0); Mean Corpuscular Hemoglobin 29.6 pg (25.0-35.0); Mean Corpuscular Volume 85 fL (80-100); Monocytes # (Auto) 0.7 Thou/mm3 (0.0-0.8); Monocytes % (Auto) 13 % (0-12); Neutrophils # (Auto) 3.8 Thou/mm3 (1.8-7.7); Neutrophils % (Auto) 70 % (37-80); Nucleated Red Blood Cell % 0 /100 WBC (0); Platelet Count 211 Thou/mm3 (140-440); RDW Standard Deviation 43.3 fL (36.4-46.3); Red Blood Count 3.78 Miln/mm3 (4.00-5.20); White Blood Count 5.4 Thou/mm3 (3.6-11.0)
[2025-02-16 07:16] LABS: Alanine Aminotransferase 19 U/L (10-49); Albumin, Serum 3.7 gm/dL (3.4-4.8); Albumin/Globulin Ratio 1.4 (1.2-2.2); Alkaline Phosphatase 81 U/L (46-116); Anion Gap 13 (7-16); Aspartate Amino Transferase 22 U/L (0-34); BUN/Creatinine Ratio 18 Ratio (12-20); Bilirubin,Total 0.5 mg/dL (0.3-1.2); Blood Urea Nitrogen 14 mg/dL (9-23); Calcium 8.6 mg/dL (8.3-10.6); Calcium (Corrected) 8.8 mg/dL (8.5-10.1); Carbon Dioxide 27.2 mMol/L (20.0-31.0); Chloride 106 mMol/L (98-107); Creatinine (Component) 0.8 mg/dL (0.6-1.3); Estimated Creatinine Clearance 77.3 mL/min (>60); Globulin 2.6 gm/dL (2.3-3.5); Glucose 129 mg/dL (74-106); Magnesium 1.8 mg/dL (1.6-2.6); Osmolality,Calculated 293 (275-295); Phosphorous 2.4 mg/dL (2.4-5.1); Potassium 3.1 mMol/L (3.4-5.1); Sodium 146 mMol/L (136-145); Total Protein 6.3 gm/dL (5.7-8.2); eGFR > 60 See Note
[2025-02-16] MEDS: HEPARIN SOD INJ 5000 UNIT/ML VIAL SC ×2 (10:18→21:53)
[2025-02-16] MEDS: PANTOPRAZOLE INJ 40 MG VIAL IVP (10:18)
[2025-02-16] MEDS: QUEtiapine FUMARATE 100 MG TABLET 200 MG PO ×2 (10:18→21:58)
[2025-02-16] MEDS: LEVOFLOXACIN 250 MG TABLET 750 MG PO (10:37)
[2025-02-16] MEDS: POTASSIUM CHLORIDE 20 mEq TABCR 40 MEQ PO (10:37)
--- NOTE | 2025-02-16 11:34 | ESPR_ITS ---
Documentation for date of: 02/16/25 Subjective Subjective Interval history: Overnight, patient got Haldol overnight. However, no fevers noted overnight. Patient seen and examined at bedside. Patient denies any complaints at this time. Patient is able to state intelligible words when asked how patient is feeling. Urine culture grew ESBL E. coli and blood culture grew gram-negative rods 2 out of 2 bottles. Potassium a little bit low at 3.1, repleted with potassium 40 mill equivalents. Will order PT in regards to dispo plan with home with home health. At this time we will transition patient from IV antibiotics to levofloxacin 750 mg p.o. Exam Vital Signs Temp Pulse Resp BP Pulse Ox O2 Del Method O2 Flow Rate 97.0 F 96 22 H 139/90 H 98 Nasal Cannula 3 02/16/25 07:31 02/16/25 07:31 02/16/25 07:31 02/16/25 07:31 02/16/25 07:31 02/16/25 07:31 02/16/25 07:31 FiO2 30 02/14/25 12:00 Narrative Exam General Appearance: Well-developed and well-nourished. On nasal cannula. Patient able to respond to some questions and respond to name with intelligible words. HEENT: NC/AT, no scleral icterus, no conjunctival pallor, MMM Lungs: CTAB, no wheezes or crackles appreciated CVS: RRR, S1/S2 heard, no murmurs or rubs appreciated ABD: Soft, non-tender, non-distended, BS + in all 4 quadrants EXT: no deformity/edema/lesions/cyanosis/clubbing, radial pulses 2+ BL, DP pulses 2 + BL SKIN: Skin exam normal without any rashes. Neuro: Alert and oriented x 1 to name. Unable to assess motor or sensory due to patient's current mental condition. Objective Labs 02/16/25 06:40 02/16/25 06:40 Labs: Laboratory Results - last 24 hr 02/15/25 02/16/25 08:00 06:40 WBC 5.4 RBC 3.78 L Hgb 11.2 L Hct 32.3 L MCV 85 MCH 29.6 MCHC 34.7 RDW Std Deviation 43.3 Plt Count 211 Neut % (Auto) 70 Lymph % (Auto) 13 [place] % (Auto) 13 H Eos % (Auto) 2 Baso % (Auto) 1 Neut # (Auto) 3.8 Lymph # (Auto) 0.7 L [place] # (Auto) 0.7 Eos # (Auto) 0.1 Baso # (Auto) 0.1 Immature Gran # (Auto) 0.01 H Absolute Nucleated RBC 0.00 Immature Gran % 0 Nucleated RBC % 0 Sodium 146 H Potassium 3.1 L D Chloride 106 Carbon Dioxide 27.2 Anion Gap 13 BUN 14 Creatinine 0.8 Estim Creat Clear Calc 77.3 eGFR > 60 BUN/Creatinine Ratio 18 Glucose 129 H Calculated Osmolality 293 Calcium 8.6 Corrected Calcium 8.8 Phosphorus 2.4 Magnesium 1.8 Ferritin 257 Total Bilirubin 0.5 AST 22 ALT 19 Alkaline Phosphatase 81 Total Protein 6.3 Albumin 3.7 Globulin 2.6 Albumin/Globulin Ratio 1.4 ABG Interpretation ABG results: 02/13/25 02/14/25 16:20 04:38 ABG pH 7.39 7.42 ABG pCO2 41 40 ABG pO2 138 H 82 L D ABG HCO3 25 26 ABG O2 Saturation 100 H 98 ABG Base Excess 0 1 Quality Measures Quality Measures sepsis Current suspected stage: sepsis Possible source: genitourinary Blood cultures ordered: completed in ED Antibiotic ordered: Yes Advance care planning discussed with:: patient Assessment & Plan Assessment Current Active Medications: Generic Name Dose Route Start Last Admin Trade Name Freq PRN Reason Stop Dose Admin Acetaminophen 650 mg 02/13/25 14:15 02/14/25 04:54 Acetaminophen 325 Mg Tablet PO 03/15/25 14:14 650 mg Q6H PRN Administration Mild Pain 1-3 or Fever >100.3 Benztropine Mesylate 1 mg 02/15/25 21:00 02/15/25 20:34 Benztropine 0.5 Mg Tablet PO 03/17/25 20:59 1 mg HS [place] Administration Ferrous Sulfate 325 mg 02/15/25 16:30 02/15/25 17:59 Ferrous Sulf 325 Mg Tablet PO 03/17/25 16:29 325 mg QOD [place] Administration Heparin Sodium (Porcine) 5,000 unit 02/13/25 21:00 02/16/25 10:18 Heparin Sod Inj 5000 Unit/Ml Vial SC 02/27/25 20:59 5,000 unit Q12HR [place] Administration Piperacillin/Tazobactam/Dextrose 3.375 gm in 50 mls @ 12.5 mls/hr 02/15/25 14:00 02/16/25 05:05 Zosyn IV 02/22/25 13:59 12.5 mls/hr Q8HR [place] Administration Protocol Insulin Human Lispro 0 unit 02/15/25 17:00 02/16/25 11:32 Insulin Lispro (Admelog) 1 Unit/0.01 Ml Unit SC 03/17/25 16:59 Not Given AC [place] Protocol Levofloxacin 750 mg 02/16/25 10:30 02/16/25 10:37 Levofloxacin 250 Mg Tablet PO 02/23/25 10:29 750 mg QDAY [place] Administration Lorazepam 0.5 mg 02/15/25 14:44 Lorazepam 0.5 Mg Tablet PO 02/20/25 14:43 TID PRN anxiety Ondansetron HCl 4 mg 02/13/25 14:15 Ondansetron Inj 2 Mg/Ml Inj 2 Ml IV 03/15/25 14:14 Q6H PRN NAUSEA OR VOMITING Protocol Pantoprazole Sodium 40 mg 02/13/25 14:30 02/16/25 10:18 Pantoprazole Inj 40 Mg Vial IVP 03/15/25 14:29 40 mg QDAY [place] Administration Quetiapine Fumarate 200 mg 02/15/25 13:15 02/16/25 10:18 Quetiapine Fumarate 100 Mg Tablet PO 03/17/25 13:14 200 mg BID [place] Administration Sennosides 1 tab 02/13/25 14:15 Senna Tablet GT 03/15/25 14:14 QDAY PRN constipation Protocol Plan Анна Pickens is a 69-year-old female with a past medical history of dementia secondary to Alzheimer disease, paranoid depression, who is disfluent at baseline presented on 02/13 due to acute encephalopathy and decreased urine output for a couple days duration. Upon arrival to ED, GCS of 9 with SBP of 98, temperature 103 ?F and so patient was intubated and admitted to the ICU withou requiring pressors. Urine culture on 02/13 positive for ESBL E. coli and blood culture positive for GNR in 1 of 2 bottles, currently on Zosyn. Now extubated and passed swallow screen, so downgraded to floors on 02/15. #Sepsis secondary to #Acute on chronic encephalopathy secondary to #Complicated UTI #Lactic acidosis?resolved Presented with acute encephalopathy likely secondary to ESBL E. coli UTI causing sepsis. Due to GCS of 9 patient was intubated for airway protection but extubated on 02/14, passed follow screen. Per son, at baseline patient intermittently recognizes family, cannot articulate words other than yes and no. UA showed pyuria, bacteriuria, positive leukocyte esterase. Urine cultures grew ESBL E. coli. Blood cultures grew GNR in 1 of 2 bottles. Originally treated for possible meningitis but since has been de-escalated and currently on Zosyn per sensitivities. Also previously on ceftriaxone which organism was resistant to. Per speech therapy note, tolerated all trials of puree, minced and moist, and thin liquids during evaluation without signs/symptoms of aspiration. As for medications, recommended crushed in puree. Blood cultures negative in the last 24 hours which grew gram-negative rods 2 out of 2 CSF showed no growth on Gram stain or culture ? Transition from IV Zosyn 3.375 g every 8 hours (02/15-) to p.o. levofloxacin, 02/16/2025? ? Consider repeat blood cultures if symptoms persist, repeat fevers, etc. ? PT eval placed #History of ? Alzheimer's vs Parkinsons dementia #History of paranoid schizophrenia ? Quetiapine 200 mg p.o. twice daily (patient takes 400 mg BID at home) ? Restarted lorazepam 0.5 mg p.o. 3 times daily as needed for anxiety ? Restarted benztropine 1 mg p.o. at bedtime ? Patient received Haldol x 1 last night due to agitation #Electrolyte imbalance #Hypokalemia ? Replete like electrolytes as necessary #Iron deficiency anemia #Normocytic anemia ? Ferritin within normal limits ? Patient is on iron every other day, may not need after repeat labs in 6 to 8 weeks. #Hyperglycemia ? SSI AC ? Hypoglycemic protocol in place Hospital management: Disposition: Pending final blood culture speciation and sensitivities, and will transition to p.o. levofloxacin, pending PT eval Fluids: none Diet: dysphagia 1 - pureed Lines: PIV DVT prophylaxis: heparin SC BID GI prophylaxis: pantoprazole 40 mg IV daily Cook: placed CODE STATUS: full code Patient's plan and care discussed with my attending, Dr. Clare Herrera MD PGY-2 Attending Provider Attestation/Addendum I reviewed labs, imaging, EKG, home medications and prior available records. Face to face evaluation was performed by me. I have personally examined the patient and discussed assessment and plan with the IM team. I reviewed the resident note and agree with the plan with exceptions as below. History of dementia Acute encephalopathy, requiring intubation to protect airways Acute hypoxic respiratory failure, status post intubation, s/p extubation and ICU downgrade ESBL E. coli UTI Gram-negative bacteremia Leukocytosis Atrial fibrillation with RVR Hypernatremia Downgraded from ICU Changed antibiotics to levofloxacin Follow-up blood culture: Showed gram-negative rods Trend WBC: Downtrending Continue quetiapine Continue benzodiazepine as needed Discontinue mittens PT evaluation
--- NOTE | 2025-02-16 11:48 | PC.SS ---
Patient Анна Pickens is a 69 Year old female admitted for Acute Encephalopathy. SS met at bedside with patient, however patient appeared to be altered. SS contacted patient's son, Darshan Carty who reports is patient's surrogate decision maker [phone]. Darshan reports patient lives at home with himself and patient's daughter who are patient's [facility] providers, patient gets 283 hrs A month Patient utilizes a wheelchair and need full assistance completing ADL's. [facility] of pharmacy [facility] and PCP is Kaila Hair. Patient's last appointment was last month. SS inquired about SNF and patient's son informed SS that they would like patient to discharge home with HH VS SNF. At time of discharge patient's son will provide transportation. Next of Kin: SonDarshan Discharge Plan: Home with HH PCP: Silvana Hair-Last seen last month
--- NOTE | 2025-02-16 11:55 | PC.SS ---
SS follow up note; Pending Dr. Santoyo Rec's. Patient will discharge home when medically cleared.
--- NOTE | 2025-02-16 12:00 | PC.NURSE ---
Dr. Sparks verbal order to remove mitten restrains 1200. order received read back and carried out.
[2025-02-16] MEDS: BENZTROPINE 0.5 MG TABLET 1 MG PO (21:59)
[2025-02-17] VITALS (9 sets, daily range): BP systolic 127–141; BP diastolic 77–95; PULSE 62–106; RESP 14–18; TEMP 36.2–37; O2SAT 94–98
--- NOTE | 2025-02-17 09:27 | PC.SS ---
SS was informed by Team A that pt will need Home Health arranged prior to d/c. Pt will d/c today.
[2025-02-17] MEDS: PANTOPRAZOLE INJ 40 MG VIAL IVP (09:33)
[2025-02-17] MEDS: FERROUS SULF 325 MG TABLET PO (09:33)
[2025-02-17] MEDS: QUEtiapine FUMARATE 100 MG TABLET 200 MG PO (09:33)
[2025-02-17] MEDS: HEPARIN SOD INJ 5000 UNIT/ML VIAL SC (09:34)
[2025-02-17] MEDS: LEVOFLOXACIN 250 MG TABLET 750 MG PO (09:34)
[2025-02-17 09:58] LABS: Basophils # (Auto) 0.1 Thou/mm3 (0.0-0.2); Basophils % (Auto) 1 % (0-2.5); Eosinophils # (Auto) 0.1 Thou/mm3 (0.0-0.5); Eosinophils % (Auto) 1 % (0-10); Hematocrit 36.6 % (36.0-46.0); Hemoglobin 12.6 g/dL (12.0-16.0); Immature Granulocytes % (Auto) 1 % (0-0); Immature Granulocytes Auto 0.02 Thou/mm3 (0.00-0.00); Lymphocytes # (Auto) 0.9 Thou/mm3 (1.0-4.8); Lymphocytes % (Auto) 21 % (10-50); Mean Corpuscular HGB Conc 34.4 g/dl (31.0-37.0); Mean Corpuscular Hemoglobin 29.5 pg (25.0-35.0); Mean Corpuscular Volume 86 fL (80-100); Monocytes # (Auto) 0.5 Thou/mm3 (0.0-0.8); Monocytes % (Auto) 11 % (0-12); Neutrophils # (Auto) 2.8 Thou/mm3 (1.8-7.7); Neutrophils % (Auto) 65 % (37-80); Nucleated Red Blood Cell % 0 /100 WBC (0); Platelet Count 282 Thou/mm3 (140-440); RDW Standard Deviation 43.8 fL (36.4-46.3); Red Blood Count 4.27 Miln/mm3 (4.00-5.20); White Blood Count 4.3 Thou/mm3 (3.6-11.0)
--- NOTE | 2025-02-17 10:03 | ESDS_ITS ---
Planned Discharge Date 02/17/25 DS: Providers Provider Date of admission: 02/13/25 14:15 Primary care physician: Kaila Patterson MD Admitting Provider: Duglas Ferrara MD Attending Provider on Admission: Raza Sparks MD Consults: 02/14/25 15:38 Referral Speech Therapy Routine Comment: jeanne wilde 02/16/25 10:21 Referral Physical Therapy Routine Comment: Physician Instructions: Attending Provider on DC: Dewayne Urbina MD Discharging Provider: Dewayne Urbina MD DS: Diagnosis Problem List Completed Was Problem List Reviewed/Reconciled?: Yes Hospital Course Hospital Course Hospital course: Анна Pickens is a 69-year-old female with a past medical history of dementia secondary to Alzheimer disease, paranoid depression, who is disfluent at [facility] presented on 02/13 due to acute encephalopathy and decreased urine output for a couple days duration. Upon arrival to ED, GCS of 9 with SBP of 98, temperature 103 ?F and so patient was intubated and admitted to the ICU. Urine culture on 02/13 positive for ESBL E. coli and blood culture positive for ESBL E. coli as well in 2 of 2 bottles. Previously on ceftriaxone but switched to zosyn on 02/15 and then to levofloxacin on 02/16 in order to be transitioned to PO antibiotics. Spoke to son over the phone who patient resides with and is primary senior oracle adf developer and states that at times patient does not recognize family and mostly responds in yes and no questions but is known to speak with unintelligible words, but is alert and responds nonetheless. After being downgraded to floors, mentation appeared to be at patient's baseline, vital signs stable, and labs also largely unremarkable other than potassium 3.2 and phoshorus of 2.2, both of which were repleted. Plan is to discharge with le vofloxacin for four more days to finish course of antibiotics. Diagnoses during admission: #Sepsis (resolved) secondary to #Acute on chronic encephalopathy (resolved) secondary to #Complicated UTI #Lactic acidosis, resolved #History of ? Alzheimer's vs Parkinsons dementia #History of paranoid schizophrenia #Electrolyte imbalance #Hypokalemia #Hypophosphatemia #Iron deficiency anemia #Normocytic anemia #Hyperglycemia Discharge instructions: ? Continue taking levofloxacin 750 mg daily to finish your course of antibiotics for your UTI ? Your quetiapine was decreased from 400 to 200 mg twice per day ? Continue taking all other home medications as prescribed ? Follow-up with PCP within 1-2 weeks of discharge ? If you do not have a PCP, you can follow-up at the [facility] (you can call [phone] to make an appointment) ? If you wish to follow-up with Dr. Urbina, schedule appointment on Sunday afternoons ? Return to ED if symptoms worsen or recur ----- Plan discussed with attending physician Dr. Clare Urbina MD PGY-1 Internal Medicine Time Spent with Patient Time attestation: Total time spent providing and/or coordinating discharge services: Time spent: Greater than 30 minutes Home Health Home Health Referral Orders: 02/17/25 09:55 Home Health Referral Routine Reason For Exam: Home PT Home-Bound The patient must either because of illness or injury, need the aid of supportive devices such as crutches, canes, wheelchairs, and walkers; the use of special transportation; or the assistance of another person in order to leave their place of residence; OR have a condition such that leaving his or her home is medically contraindicated. In addition, the patient also meets the following criteria: patient is normally unable to leave the home and leaving home requires considerable taxing effort. Addendum to Home Health Certification Practitioner's Certification: I certify that the patient has been under my care in the hospital and the care of attending physician (see below). We had a snlb-jo-mdcb encounter on (see date below). My clinical findings indicate that the patient is home bound per the above criteria and the Home Health Services noted in these orders are medically necessary. The primary reason for the vsqm-bk-tven encounter is related to the fact that the patient requires home health services. Date Certifying Czdw-ns-Zgxv Physician Encounter: 02/13/25 Physician's Name who will Assume Oversight for Services: Kaila Hair Physician's Phone No.who will Assume Oversight for Service: COTTON OPENER - Community Resources: Yes PT to Evaluate: Yes PT to evaluate and provide a treatmnet plan to increase patient's mobility and strength. Wound Care: No IV Therapy: No RN Safety Evaluation: Yes RN to evaluate and create a plan of care that will produce positive outcomes. Palliative Treatment: No Palliative treatment and evaluate the need for hospice. Home Health Aide - Personal Care: Yes Home Health Aide to assist with any ADL's. Exam Vital Signs Temp Pulse Resp BP Pulse Ox O2 Del Method O2 Flow Rate 98.2 F 93 17 139/95 H 94 L Room Air 3 02/17/25 08:00 02/17/25 08:00 02/17/25 08:00 02/17/25 08:00 02/17/25 08:00 02/17/25 08:00 02/16/25 11:39 FiO2 30 02/14/25 12:00 Narrative Exam General: Alert to voice, responds to questions with unintelligible words HEENT: NC/AT, mucous membranes moist Cardiovascular: regular rate and rhythm, S1/S2 present, no murmurs appreciated Pulmonary: clear to auscultation bilaterally, no rales/rhonchi/wheezes Abdominal: soft, non-tender, non-distended, no rebound/guarding, normal bowel sounds present Musculoskeletal: normal ROM, no peripheral edema Skin: warm and dry, intact, no rashes Neuro: unable to assess Discharge Plan Plan Patient Disposition: Home w/HOME HEALTH Patient condition on transfer: Stable Care Plan Goals: ? Continue taking levofloxacin 750 mg daily to finish your course of antibiotics for your UTI ? Your quetiapine was decreased from 400 to 200 mg twice per day ? Continue taking all other home medications as prescribed ? Follow-up with PCP within 1-2 weeks of discharge ? If you do not have a PCP, you can follow-up at the [facility] (you can call [phone] to make an appointment) ? If you wish to follow-up with Dr. rUbina, schedule appointment on Sunday afternoons ? Return to ED if symptoms worsen or recur Prescriptions/Referrals Prescriptions/Med Rec: New quetiapine 200 mg tablet 200 mg PO BID Qty: 60 0RF levofloxacin 750 mg tablet 750 mg PO QDAY 4 Days Qty: 4 0RF Continued lorazepam 0.5 mg tablet 0.5 mg PO TID PRN (Reason: anxiety) Patient Comments: take 1 tablet by mouth three times a day if needed for anxiety bisacodyl [Dulcolax (bisacodyl)] 5 mg tablet,delayed release (DR/EC) 10 mg PO QDAY benztropine 1 mg tablet 1 mg PO HS Patient Comments: TAKE ONE TABLET BY MOUTH AT BEDTIME Discontinued quetiapine 200 mg tablet 400 mg PO BID Referrals: Kaila Patterson MD [Primary Care Provider] - Patient/Caregiver Discharge Instructions Print Language: Liberian Stand Alone Forms: [employer] Award Info., Patient Portal Info Letter Discharge Order Discharge Orders: Discharge (Routine); Ordered 02/17/25 Ordered By: Dewayne Urbina Quality Discharge Quality Measures VTE prophylaxis MD Attestestation MD Attestation I reviewed labs, imaging, EKG, home medications and prior available records. Face to face evaluation was performed by me. I have personally examined the patient and discussed assessment and plan with the IM team. I reviewed the resident note and agree with the plan with exceptions as below. History of dementia Acute encephalopathy, requiring intubation to protect airways Acute hypoxic respiratory failure, status post intubation, s/p extubation and ICU downgrade ESBL E. coli UTI Gram-negative bacteremia Leukocytosis Questionable atrial fibrillation Hypernatremia Downgraded from ICU Changed antibiotics to levofloxacin Follow-up blood culture: Showed ESBL E. coli Trend WBC: Downtrending She is off restraints Continue quetiapine at 200 mg twice daily Continue benzodiazepine as needed Discontinued mittens Encourage oral hydration. Follow-up sodium level in 1 week Outpatient follow-up with cardiology PT evaluation: Cannot participate secondary to dementia. Will go home with home health Time spent is 40 minutes. More than 50% of the time was spent on patient education and coordination of care.
[2025-02-17 10:16] LABS: Anion Gap 11 (7-16); BUN/Creatinine Ratio 14 Ratio (12-20); Blood Urea Nitrogen 13 mg/dL (9-23); Calcium 9.4 mg/dL (8.3-10.6); Carbon Dioxide 28.6 mMol/L (20.0-31.0); Chloride 108 mMol/L (98-107); Creatinine (Component) 0.9 mg/dL (0.6-1.3); Estimated Creatinine Clearance 68.7 mL/min (>60); Glucose 154 mg/dL (74-106); Osmolality,Calculated 297 (275-295); Phosphorous 2.2 mg/dL (2.4-5.1); Potassium 3.2 mMol/L (3.4-5.1); Sodium 148 mMol/L (136-145); eGFR > 60 See Note
[2025-02-17] MEDS: NAPH,KPH MBDB 1 PACKET (1.5 GM) PO (14:19)
[2025-02-17] MEDS: POTASSIUM CHLORIDE 10% 20 MEQ/15 ML UDC 40 MEQ PO (14:19)
[2025-02-18 07:07] LABS: HSV-1 DNA, CSF NOT DETECTED copies/mL; HSV-1 DNA, CSF Source CEREBROSPINAL FLUID
--- NOTE | 2025-02-18 07:26 | PC.CC ---
Addendum entered by Nayeli Moctezuma RN 02/18/25 08:42: SOC is 02/20 Original Note: Pt is booked with [facility] pending SOC
[2025-02-19 06:57] LABS: HSV-2 DNA, CSF NOT DETECTED copies/mL
[2025-02-19 17:52] LABS: Enterovirus Source NOT GIVEN; West Nile Virus (IgG), CSF <1.30
[2025-02-20 06:39] LABS: Enterovirus RNA, PCR CSF NOT DETECTED; VDRL, CSF Qual* NON-REACTIVE; West Nile Virus (IgM), CSF <0.90
== END 2025-02-17 19:38 | disposition home health service (06) | DRG 871 ==
LOC: SERX 14:23 → SERHOLD 14:53 → S2SX 17:34 → S3SX 02-15 16:47
PROVIDERS: Student in an Organized Health Care Education/Training Program; Admitting Provider Internal Medicine Critical Care Medicine; Emergency Provider Emergency Medicine; Visit Provider Student in an Organized Health Care Education/Training Program
DX: A41.51 Sepsis due to Escherichia coli [E. coli] (principal); G03.9 Meningitis, unspecified; J18.9 Pneumonia, unspecified organism; R57.8 Other shock; J96.01 Acute respiratory failure with hypoxia; G92.9 Unspecified toxic encephalopathy; F20.0 Paranoid schizophrenia; G93.49 Other encephalopathy; N39.0 Urinary tract infection, site not specified; Z16.12 Extended spectrum beta lactamase (ESBL) resistance; F02.818 Dementia in other diseases classified elsewhere, unspecified severity, with other behavioral disturbance; E87.20 Acidosis, unspecified; E87.0 Hyperosmolality and hypernatremia; F05 Delirium due to known physiological condition; F02.80 Dementia in other diseases classified elsewhere, unspecified severity, without behavioral disturbance, psychotic disturbance, mood disturbance, and anxiety; G30.9 Alzheimer's disease, unspecified; Z87.891 Personal history of nicotine dependence; E83.39 Other disorders of phosphorus metabolism; K59.00 Constipation, unspecified; F17.200 Nicotine dependence, unspecified, uncomplicated; R73.9 Hyperglycemia, unspecified; I48.91 Unspecified atrial fibrillation; E87.6 Hypokalemia; G20.A1 Parkinson's disease without dyskinesia, without mention of fluctuations; D50.9 Iron deficiency anemia, unspecified; R65.20 Severe sepsis without septic shock; F32.A Depression, unspecified
CPT/HCPCS: 36415; 36600; 70450; 71045; 80048; 80053; 80061; 80307; 80320; 81001; 82728; 82803; 82945; 83036; 83540; 83550; 83605; 83615; 83690; 83735; 83880; 84100; 84145; 84157; 84484; 85025; 85610; 85730; 86171; 86592; 86788; 86789; 87040; 87070; 87077; 87081; 87086; 87186; 87205; 87400; 87498; 87530; 87811; 89051; 92526; 92610; 93005; 93225; 94002; 94003; 96365; 96366; 97162; 99291; J0133; J0290; J0696; J0713; J1630; J1644; J2470; J2543; J2704; J3010; J3370; J3475; J3490; J7030; J7050; J7120; A9270; G0480

== ENCOUNTER 2025-02-21 08:12 | Inpatient (IN) | payer MEDICARE, MEDICAID, SELFPAY ==
[2025-02-21] VITALS (13 sets, daily range): BP systolic 141–164; BP diastolic 88–110; PULSE 67–120; RESP 17–90; TEMP 36.6–37.4; O2SAT 90–100; BMI 28.1
--- NOTE | 2025-02-21 08:25 | PD.EDSEIZ ---
ED Seizures RME/HPI General Stated Complaint: AMS Arrival date/time: 02/21/25 08:12 RME / HPI RME / HPI Narrative: 69 year old female with history of dementia, hypertension, recent sepsis, Related Data Home Medications ?Medication ?Instructions ?Recorded ?Confirmed benztropine 1 mg tablet 1 mg PO HS 12/07/22 02/13/25 bisacodyl 5 mg tablet,delayed 10 mg PO QDAY 02/13/25 02/13/25 release (Dulcolax (bisacodyl)) lorazepam 0.5 mg tablet 0.5 mg PO TID PRN anxiety 02/13/25 02/13/25 Previous Rx's ?Medication ?Instructions ?Recorded quetiapine 200 mg tablet 200 mg PO BID #60 tabs 02/17/25 Allergies Allergy/AdvReac Type Severity Reaction Status Date / Time No Known Allergies Allergy Verified 10/03/22 15:20 Discharge Plan Prescriptions/Referrals Prescriptions/Med Rec: No Action lorazepam 0.5 mg tablet 0.5 mg PO TID PRN (Reason: anxiety) Patient Comments: take 1 tablet by mouth three times a day if needed for anxiety bisacodyl [Dulcolax (bisacodyl)] 5 mg tablet,delayed release (DR/EC) 10 mg PO QDAY quetiapine 200 mg tablet 200 mg PO BID Qty: 60 0RF benztropine 1 mg tablet 1 mg PO HS Patient Comments: TAKE ONE TABLET BY MOUTH AT BEDTIME Referrals: Katie Cason CNM [Primary Care Provider] - In 1 week Patient/Caregiver Discharge Instructions Print Language: Greek
--- NOTE | 2025-02-21 08:30 | PD.EDAMS ---
Altered Mental Status RME/HPI General Chief Complaint: Altered Mental Status Stated Complaint: AMS Arrival date/time: 02/21/25 08:12 Limitations: no limitations RME / HPI RME / HPI narrative: 69 year old female with history of dementia, Alzheimer's disease, paranoid schizophrenia, hypertension, recent sepsis, presented to the ER BIBA from home with a chief complaint of altered mental status. Patient is presented to ER agitated, with repetitive speech of nonsense words, unable to provide any history. Per EMS, family stated that patient had a episode of being stiff and looking off with non-normal behavior lasting 1 minute. At arrival to scene, EMS stated that patient was hot and assumed onset fever with tachycardia. BS= 135, HR= 120, GCS= 8 (normal 14). Patient has history of recent sepsis and is currently still on antibiotics but missed dosage for today. Related Data Home Medications ?Medication ?Instructions ?Recorded ?Confirmed benztropine 1 mg tablet 1 mg PO HS 12/07/22 02/13/25 bisacodyl 5 mg tablet,delayed 10 mg PO QDAY 02/13/25 02/13/25 release (Dulcolax (bisacodyl)) lorazepam 0.5 mg tablet 0.5 mg PO TID PRN anxiety 02/13/25 02/13/25 Previous Rx's ?Medication ?Instructions ?Recorded quetiapine 200 mg tablet 200 mg PO BID #60 tabs 02/17/25 Allergies Allergy/AdvReac Type Severity Reaction Status Date / Time No Known Allergies Allergy Verified 10/03/22 15:20 Review of Systems Review of Systems ROS Unobtainable: unobtainable due to mental status Past Medical History Past Medical History NEUROLOGIC: Positive Dementia and Alzheimer's Disease CARDIAC: Positive Hypertension OTHER HISTORY: Positive Falls Social History SMOKING STATUS: Smoker, status unknown SUBSTANCE USE: unknown ED Exam General Limitations: Present no limitations General appearance: Present alert and other (eyes open, verbalizes nonsense words, repetitive speech, crying out, slightly agitated) Head Head exam: Present atraumatic Eye Eye exam: Present normal appearance, PERRL and EOMI ENT ENT exam: Present normal exam, normal oropharynx, mucous membranes moist and other (clear without masses) Neck Neck exam: Present normal inspection, full ROM and trachea midline Chest Chest inspection: Present normal inspection and symmetric chest wall rise Respiratory Respiratory exam: Present other (bronchi anterior on right ) Cardiovascular Cardiovascular exam: Present regular rate, normal rhythm and other (distant heart sounds, no murmur) Abdominal Exam Abdominal exam: Present normal bowel sounds and other (slight tense, distended due to muscular, no tenderness) Extremities Exam Extremities exam: Present normal inspection, full ROM and other (no edema ) Expanded Lower Extremity Exam Foot/toe exam: Present other (mild hammer toes on right and left foot) Back Exam Back exam: Present normal inspection and full ROM Neurological Exam Neurological exam: Present alert, CN II-XII intact and other (unable to answer questions, non-focal, cogwheeling, spasticity of upper extremities (long-term), arms flexed, moving all four extremities) Psychiatric Psychiatric exam: Present normal affect and normal mood Skin Skin exam: Present warm, dry, intact and normal color Course Course Course Narrative: Chest x-ray has been ordered to rule out pneumonia. Quality Measures none Orders Category Date Time Status Casserole Preparer NOW Care 02/21/25 08:50 Active Continuous Pulse Oximetry NOW Care 02/21/25 08:49 Completed EKG (ED ONLY) *Do not use* NOW Care 02/21/25 08:50 Completed Insert IV NOW Care 02/21/25 08:50 Active NPO NOW Care 02/21/25 08:[address] head/brain wo con Stat Exams 02/21/25 08:51 Completed CXRP [XR chest 1V portable] Stat Exams 02/21/25 08:55 Completed EKG (ED Only) Stat Exams 02/21/25 08:49 Draft Arterial Blood Gas Stat Lab 02/21/25 10:33 Completed Blood Culture (Lab) Stat Lab 02/21/25 08:56 Received Blood Culture (Lab) Stat Lab 02/21/25 12:09 Ordered CBC Stat Lab 02/21/25 08:56 Completed Comprehensive Metabolic Panel Stat Lab 02/21/25 08:56 Completed Drug Screen,Urine Stat Lab 02/21/25 08:53 Completed Magnesium Stat Lab 02/21/25 08:56 Completed Partial Thromboplastin Time Stat Lab 02/21/25 08:56 Completed Prothrombin Time with INR Stat Lab 02/21/25 08:56 Completed Troponin I Stat Lab 02/21/25 08:56 Completed Urinalysis Stat Lab 02/21/25 08:53 Completed Urine Culture Stat Lab 02/21/25 08:53 Received Acetaminophen Supp [Tylenol Supp] Med 02/21/25 08:53 Discontinued 650 mg ID X1 ONE Albuterol/Ipratr Rt Vane [Duoneb Rt Vane] Med 02/21/25 12:09 Discontinued 3 ml INH X1 ONE Cefepime Inj [Maxipime Inj] 2 gm Med 02/21/25 12:15 Active SODIUM CHLORIDE 0.9% (Popper) [Ns 0.9% (P)] 50 ml IV Q8HR Doxycycline Inj [Vibramycin Inj] 100 mg Med 02/21/25 12:09 Discontinued Sodium Chloride 0.9% (Pop) [NS 0.9% mini bag] 100 ml IV X1 Piper/Tazo 3.375 gm Premix [Zosyn] Med 02/21/25 08:52 Discontinued 3.375 gm in 50 ml IV X1 Piper/Tazo 3.375 gm Premix [Zosyn] Med 02/21/25 12:10 Stop Req 3.375 gm in 50 ml IV X1 Sodium Chloride 0.9% 1000 ml [Ns] 1,000 ml Med 02/21/25 08:49 Discontinued IV 1,000 mls/hr levETIRAcetam INJ [Keppra Inj] Med 02/21/25 12:09 Discontinued 1,000 mg IVP X1 ONE Oxygen Delivery NOW RT 02/21/25 08:50 Completed Vital Signs Vital signs: Vital Signs Pulse Rate 90 02/21/25 08:45 Respiratory Rate 19 02/21/25 08:45 Pulse Oximetry (%) 95 02/21/25 08:45 Oxygen Flow Rate 4 02/21/25 08:45 Altered Mental Status MDM Narrative MDM Narrative:: Carie Treadwell am scribing for and in the presence of Dr. Chappell. Patient data External records reviewed:: [facility] previous records and EMS form Clinical information provided by:: EMS Social determinants that could affect healthcare access:: none Patient has the following chronic illnesses:: dementia, Alzheimer's disease, paranoid schizophrenia, hypertension, recent sepsis How is presenting disease/condition affected by chronic disease/condition?: exacerbated by Evaluation data The following diagnostics were reviewed and interpreted by me:: lab results, radiology exam(s) and EKG tracing(s) (EKG#1: EKG at 0935 hours.Interpreted by me: sinus rhythm, rate 80, artifact at V6, no acute changes) Lab and/or radiology exams considered but not ordered:: none. Interpretation Summary: Ordering Physician: Steven Chappell MD Date of Service: 02/21/25 Procedure(s): CT head/brain wo con Accession Number(s): [id number] cc: Steven Chappell MD; Katie Cason CNM; Bairon Del Valle MD~ Examination: CT brain head without contrast. 2-D sagittal coronal reconstructions Date and time of exam:February 21, 2025 0921 hours Comparison February 13, 2025 CTDI: vol (mGy):44.7 DLP: (mGycm):877 Technique: Multiple CT axial sections of the brain have been obtained, 5 mm slice thickness. Contrast has not been administered. 2-D sagittal, coronal reconstructions have been obtained Low dose protocols were performed. One or more of the following dose reduction techniques were used; automated exposure control, adjustment of the mA and/or KV according to patient size, use of iterative reconstruction technique. Findings: No significant ventricular enlargement. Intra-axial or extra-axial hemorrhage density is not seen. No mass effect or midline shift Basal cisterns are not remarkable. Fourth ventricle is midline. Cranial vault intact. Impression: Negative for acute hemorrhage, mass effect or midline shift Advise clinical correlation and follow-up accordingly Consider elective MRI brain follow-up, pre and postcontrast, seizure protocol Dictated By: Bairon Del Valle MD Signed By: <Electronically signed by Bairon Del Valle MD in OV> 02/21/25 0929 Ordering Physician: Steven Chappell MD Date of Service: 02/21/25 Procedure(s): XR chest 1V portable Accession Number(s): [id number] cc: Steven Chappell MD; Katie Cason CNM; Bairon Del Valle MD~ Examination: AP chest single view Technique one AP portable semiupright chest single view Standing time: February 21, 2025 0911 hours Comparison February 14, 2025 INDICATIONS: Coughing beginning 2 days ago FINDINGS: Bibasilar pneumonia Sitx-jf-zhomjkou prominence left ventricle No pulmonary edema Prominent osteopenia IMPRESSION: Bibasilar pneumonia Dictated By: Bairon Del Valle MD Signed By: <Electronically signed by Bairon Del Valle MD in OV> 02/21/25921 Medications / Prescriptions Medications or Prescriptions considered but not ordered:: none. Medication administrations:: Medication Administration History Cefepime HCl 2 gm/ Sodium (Chloride) 50 mls @ 100 mls/hr IV Q8HR [place]IR[place] Stop: 02/28/25 12:14 Discontinued Medications Acetaminophen (Acetaminophen Supp 650 Mg Supp) 650 mg ID X1 ONE Stop: 02/21/25 08:54 Last Admin: 02/21/25 09:58 Dose: 650 mg Documented By: VG Albuterol/Ipratropium (Albuterol/Ipratropium (Duoneb) Rt Vane 3 Ml Nebu) 3 ml INH X1 ONE Stop: 02/21/25 12:10 Sodium Chloride (Ns) 1,000 mls @ 1,000 mls/hr IV .Q1H ONE Stop: 02/21/25 09:48 Last Admin: 02/21/25 09:58 Dose: 1,000 mls/hr Documented By: VG Piperacillin/Tazobactam/Dextrose (Zosyn) 3.375 gm in 50 mls @ 100 mls/hr IV X1 ONE Stop: 02/21/25 09:21 Last Infusion: 02/21/25 10:38 Dose: Infused Documented By: Admin: 02/21/25 09:57 Dose: 100 mls/hr Documented By: VG Piperacillin/Tazobactam/Dextrose (Zosyn) 3.375 gm in 50 mls @ 100 mls/hr IV X1 ONE Stop: 02/21/25 12:39 Doxycycline Hyclate 100 mg/ (Sodium Chloride) 100 mls @ 100 mls/hr IV X1 ONE Stop: 02/21/25 13:08 Levetiracetam (Levetiracetam Inj 100 Mg/Ml Vial 5ml) 1,000 mg IVP X1 ONE Stop: 02/21/25 12:10 see above. Consultations Consultation(s) initiated? (list below): Yes Consultation #1 (Physician, Specialty, Details): I spoke with hospitalist Dr. De Guzman and was made aware of the patient?s HPI, PMHx, lab and/or radiology results. Treatment plan was discussed. Will admit for further evaluation and management. Accepts patient for admission Time: 12:15 Diagnosis Differential diagnosis altered mental status: altered mental status, dementia and sepsis Most likely diagnosis given after review of the tests above:: New onset seizures, recent sepsis, dementia, bilateral pneumonia, hypokalemia Admission Indicated Admission indicated?: indicated Admission Request Was there a request for admission?: Yes Admission Attestation Admission request attestation: Discussed case with [] from Hospitalist service regarding admission. Discussed patients ED course, exam findings, labs, and radiology results. The Hospitalist [agrees,declines] to accept the patient for admission. Disposition Plan Disposition Plan: Admit Critical Care Time Critical Care Time Critical Care Time: Yes Total Critical Care Time (min.): 60 Attestation: The high probability of sudden, clinically significant deterioration in the patient?s condition required the highest level of my preparedness to intervene urgently. ? The services I provided to this patient were to treat and/or prevent clinically significant deterioration. Services included the following: chart data review, reviewing nursing notes and/or old charts, documentation time, library sales consultant collaboration regarding findings and treatment options, medication orders and management, direct patient care, vital sign assessments and ordering, interpreting and reviewing diagnostic studies and lab tests. ? Aggregate critical care time includes only time during which I was engaged in work directly related to the patient?s care, as described above, whether at bedside or elsewhere in the Emergency Department. It did not include time spent performing other reported procedures or the services of residents, students, nurses or physician assistants. Discharge Plan Plan Patient Disposition: Admit Acute Care w/in Hospital Prescriptions/Referrals Prescriptions/Med Rec: No Action lorazepam 0.5 mg tablet 0.5 mg PO TID PRN (Reason: anxiety) Patient Comments: take 1 tablet by mouth three times a day if needed for anxiety bisacodyl [Dulcolax (bisacodyl)] 5 mg tablet,delayed release (DR/EC) 10 mg PO QDAY quetiapine 200 mg tablet 200 mg PO BID Qty: 60 0RF benztropine 1 mg tablet 1 mg PO HS Patient Comments: TAKE ONE TABLET BY MOUTH AT BEDTIME Referrals: Katie Cason CNM [Primary Care Provider] - In 1 week Problem List Clinical Impression: New onset seizure, Sepsis, Dementia, Hypokalemia Patient/Caregiver Discharge Instructions Print Language: Estonian Stand Alone Forms: [employer]ik[employer] Award Info., Patient Portal Info Letter
--- NOTE | 2025-02-21 08:49 | EKG_ITS ---
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
--- NOTE | 2025-02-21 08:51 | XR_ITS ---
Examination: CT brain head without contrast. 2-D sagittal coronal reconstructions Date and time of exam:February 21, 2025 0921 hours Comparison February 13, 2025 CTDI: vol (mGy):44.7 DLP: (mGycm):877 Technique: Multiple CT axial sections of the brain have been obtained, 5 mm slice thickness. Contrast has not been administered. 2-D sagittal, coronal reconstructions have been obtained Low dose protocols were performed. One or more of the following dose reduction techniques were used; automated exposure control, adjustment of the mA and/or KV according to patient size, use of iterative reconstruction technique. Findings: No significant ventricular enlargement. Intra-axial or extra-axial hemorrhage density is not seen. No mass effect or midline shift Basal cisterns are not remarkable. Fourth ventricle is midline. Cranial vault intact. Impression: Negative for acute hemorrhage, mass effect or midline shift Advise clinical correlation and follow-up accordingly Consider elective MRI brain follow-up, pre and postcontrast, seizure protocol
--- NOTE | 2025-02-21 08:55 | XR_ITS ---
Examination: AP chest single view Technique one AP portable semiupright chest single view Standing time: February 21, 2025 0911 hours Comparison February 14, 2025 INDICATIONS: Coughing beginning 2 days ago FINDINGS: Bibasilar pneumonia [id number] prominence left ventricle No pulmonary edema Prominent osteopenia IMPRESSION: Bibasilar pneumonia
--- NOTE | 2025-02-21 09:20 | PC.NURSE ---
pt taken to CT.
[2025-02-21 09:24] LABS: Collection Type, Urine Catheter
[2025-02-21 09:28] LABS: Basophils # (Auto) 0.1 Thou/mm3 (0.0-0.2); Basophils % (Auto) 1 % (0-2.5); Eosinophils # (Auto) 0.3 Thou/mm3 (0.0-0.5); Eosinophils % (Auto) 4 % (0-10); Hematocrit 34.8 % (36.0-46.0); Hemoglobin 11.7 g/dL (12.0-16.0); Immature Granulocytes % (Auto) 8 % (0-0); Immature Granulocytes Auto 0.67 Thou/mm3 (0.00-0.00); Lymphocytes % (Auto) 24 % (10-50); Mean Corpuscular HGB Conc 33.6 g/dl (31.0-37.0); Mean Corpuscular Volume 86 fL (80-100); Monocytes # (Auto) 0.6 Thou/mm3 (0.0-0.8); Monocytes % (Auto) 7 % (0-12); Neutrophils # (Auto) 4.7 Thou/mm3 (1.8-7.7); Neutrophils % (Auto) 57 % (37-80); Nucleated Red Blood Cell % 0 /100 WBC (0); Platelet Count 305 Thou/mm3 (140-440); RDW Standard Deviation 46.1 fL (36.4-46.3); Red Blood Count 4.03 Miln/mm3 (4.00-5.20); White Blood Count 8.2 Thou/mm3 (3.6-11.0)
[2025-02-21 09:46] LABS: Alanine Aminotransferase 29 U/L (10-49); Albumin, Serum 4.1 gm/dL (3.4-4.8); Albumin/Globulin Ratio 1.6 (1.2-2.2); Alkaline Phosphatase 76 U/L (46-116); Anion Gap 11 (7-16); Aspartate Amino Transferase 27 U/L (0-34); BUN/Creatinine Ratio 17 Ratio (12-20); Bilirubin,Total 0.4 mg/dL (0.3-1.2); Blood Urea Nitrogen 15 mg/dL (9-23); Calcium 8.6 mg/dL (8.3-10.6); Calcium (Corrected) 8.6 mg/dL (8.5-10.1); Carbon Dioxide 23.4 mMol/L (20.0-31.0); Chloride 109 mMol/L (98-107); Creatinine (Component) 0.9 mg/dL (0.6-1.3); Globulin 2.6 gm/dL (2.3-3.5); Glucose 154 mg/dL (74-106); Magnesium 1.9 mg/dL (1.6-2.6); Osmolality,Calculated 288 (275-295); Potassium 3.3 mMol/L (3.4-5.1); Sodium 143 mMol/L (136-145); Total Protein 6.7 gm/dL (5.7-8.2); Troponin I < 0.020 ng/mL (0.0-0.045); eGFR > 60 See Note
[2025-02-21 09:51] LABS: INR 1.1 (0.9-1.3); Partial Thromboplastin Time 22.2 Seconds (22.0-36.0); Prothrombin Time 11.5 Seconds (9.0-12.2)
[2025-02-21] MEDS: PIPER/TAZO 3.375 GM PREMIX 3.375 GM/50 ML BAG IV ×2 (09:57→22:52)
[2025-02-21] MEDS: ACETAMINOPHEN SUPP 650 MG SUPP PR (09:58)
[2025-02-21] MEDS: SODIUM CHLORIDE 0.9% 1000 ML 1,000 ML IV (09:58)
[2025-02-21 10:25] LABS: Amphetamine/Methamp Scrn,U Negative (Negative); Bacteria,Urine Rare; Barbiturate Screen,Urine Negative (Negative); Benzodiazepines Screen,Urine Negative (Negative); Benzoylecgonine Screen, Ur Negative (Negative); Bilirubin,Urine Negative (Negative); Blood,Urine Negative (Negative); Clarity,Urine Turbid (Clear/Hazy); Color,Urine Lt-Yellow (Lt Yel-Yel); Fentanyl Screen,Urine Positive (Negative); Glucose, Urine Negative (Negative); Ketones,Urine Negative (Negative); Leukocyte Esterase,Urine Negative (Negative); Nitrite,Urine Negative (Negative); Opiate Screen,Urine Positive (Negative); PH,Urine 6.5 (5.0-7.0); Protein,Urine Negative (Neg - Trace); RBC,Urine 1 /hpf (0-3); Specific Gravity,Urine 1.008 (1.001-1.035); Squamous Epithelial Cell,Urine 60 /hpf (0-5); THC Screen,Urine Negative (Negative); Urobilinogen,Urine Negative mg/dL (0.0-1.0); WBC,Urine 4 /hpf (0-5)
[2025-02-21 10:44] LABS: Base Excess 3 (-3-3); HCO3 27 mEq/L (20-26); PCO2 37 mmHg (32.0-48.0); PO2 72 mmHg (83-108); pH, Arterial 7.47 (7.35-7.45)
[2025-02-21 10:45] LABS: Allen Test Not Performed; Inspired O2, VO2 Liters 4 L/min; O2 Saturation 97 % (91-98); Puncture Site Right Radial
[2025-02-21] MEDS: ALBUTEROL/IPRATROPIUM (Duoneb) RT SOL 3 ML NEBU INH (12:30)
[2025-02-21] MEDS: levETIRAcetam INJ 100 MG/ML VIAL 5ML 1000 MG IVP (12:42)
[2025-02-21] MEDS: POTASSIUM CHL 10 mEq IVPB 100 ML 100 MEQ IV ×2 (12:43→14:04)
--- NOTE | 2025-02-21 13:15 | PD.RESHP ---
Documentation for date of: 02/21/25 HPI History of Present Illness History of present illness: Анна Pickens is a 69-year-old female with a past medical history of dementia secondary to Alzheimer disease, paranoid schizophrenia, who is disfluent at baseline and presented from home on 02/21 after seizure-like activity. Spoke to son over the phone who is patient's part-time caregiver (along with sister), and states that this morning at breakfast patient stiffened up and afterwards had whole-body jerking movements for approximately 1-2 minutes. No evidence of urinary incontinence as patient wears briefs, tongue/cheek biting, but patient did seem to be more sleepy/confused compared to her baseline afterwards. Of note, patient was recently admitted for ESBL E. coli UTI complicated by ESBL E. coli sepsis and required short-term intubation and was discharged with levofloxacin. She was receiving all of her medications as scheduled but unable to get last dose as she presented to the ED. Per son, as far as he knows, patient has never had a seizure or had seizure-like activity in the past. He did mention that patient was starting to develop a cough over the last few days but no fever or chills noted. In the ED, BP 142/88, O2 95% on 4 L NC and undergoing breathing treatment. WBC 8.2 (4.3 on discharge 4 days prior), ABG showed pH 7.47, pCO2 37, pO2 72, K 3.3. UA turbid but no evidence of UTI. U tox positive for opiates, fentanyl. CT head negative for hemorrhage, mass effect/midline shift, CXR showed bibasilar pneumonia, EKG showed NSR with HR ~74. PMHx: Alzheimer's, dementia, schizophrenia Medications: lorazepam, benztropine, quetiapine SHx: 45 pack-year smoking history (quit 5 years ago), remote history of amphetamine use; comes from home and son and daughter are caretakers Review of Systems Review of Systems ROS Unobtainable: unobtainable due to mental status Exam Vital Signs Temp Pulse Resp BP Pulse Ox O2 Del Method O2 Flow Rate 98.0 F 67 18 164/89 H 98 Nasal Cannula 5 02/21/25 13:00 02/21/25 13:00 02/21/25 13:00 02/21/25 13:00 02/21/25 13:00 02/21/25 13:00 02/21/25 13:00 Narrative Exam General: alert, responds to questions but disfluent, no acute distress, occasionally speaks in one word responses but mostly unintelligible HEENT: NC/AT, mucous membranes moist, bilateral sclera anicteric Cardiovascular: regular rate and rhythm, S1/S2 present, no murmurs appreciated Pulmonary: clear to auscultation bilaterally, no rales/rhonchi/wheezes Abdominal: soft, non-tender, non-distended, no rebound/guarding, normal bowel sounds present Musculoskeletal: normal ROM, no peripheral edema Skin: warm and dry, intact, no rashes Results: Labs 02/22/25 06:45 02/22/25 06:45 Labs: Short CBC 02/21/25 Range/Units 08:56 WBC 8.2 D (3.6-11.0) Thou/mm3 Hgb 11.7 L (12.0-16.0) g/dL Hct 34.8 L (36.0-46.0) % Plt Count 305 (140-440) Thou/mm3 BMP 02/21/25 08:56 Sodium 143 Potassium 3.3 L Chloride 109 H Carbon Dioxide 23.4 BUN 15 Creatinine 0.9 Glucose 154 H Calcium 8.6 Cardiac Enzymes 02/21/25 Range/Units 08:56 Troponin I < 0.020 (0.0-0.045) ng/mL Liver Function 02/21/25 Range/Units 08:56 Total Bilirubin 0.4 (0.3-1.2) mg/dL AST 27 (0-34) U/L ALT 29 (10-49) U/L Alkaline Phosphatase 76 (46-116) U/L Albumin 4.1 (3.4-4.8) gm/dL Urine 02/21/25 Range/Units 08:53 Urine Color Lt-Yellow (Lt Yel-Yel) Urine Clarity Turbid A (Clear/Hazy) Urine pH 6.5 (5.0-7.0) Ur Specific [place] 1.008 (1.001-1.035) Urine Protein Negative (Neg - Trace) Urine Glucose (UA) Negative (Negative) ABG Interpretation ABG results: 02/21/25 10:33 ABG pH 7.47 H ABG pCO2 37 ABG pO2 72 L ABG HCO3 27 H ABG O2 Saturation 97 ABG Base Excess 3 Quality Measures Quality Measures none Advance care planning discussed with:: patient Medications Home Medications and Allergies Home Medications ?Medication ?Instructions ?Recorded ?Confirmed ?Type benztropine 1 mg tablet 1 mg PO HS 12/07/22 02/21/25 History bisacodyl 5 mg tablet,delayed 10 mg PO QDAY 02/13/25 02/21/25 History release (Dulcolax (bisacodyl)) lorazepam 0.5 mg tablet 0.5 mg PO TID PRN anxiety 02/13/25 02/21/25 History levofloxacin 750 mg tablet 750 mg PO QDAY 02/21/25 02/21/25 History Allergies Allergy/AdvReac Type Severity Reaction Status Date / Time No Known Allergies Allergy Verified 10/03/22 15:20 Visit Medications Acetaminophen (Acetaminophen 325 Mg Tablet) 650 mg PO Q6H PRN PRN Reason: PAIN OR FEVER > 100.4 Stop: 03/23/25 13:01 Heparin Sodium (Porcine) (Heparin Sod Inj 5000 Unit/Ml Vial) 5,000 unit SC BID [place] Stop: 03/07/25 20:59 Potassium Chloride (Kcl Ivpb) 100 mls @ 100 mls/hr IV Q1H [place] Stop: 02/21/25 14:30 Last Admin: 02/21/25 12:43 Dose: 100 mls/hr Piperacillin/Tazobactam/Dextrose (Zosyn) 3.375 gm in 50 mls @ 12.5 mls/hr IV Q8HR [place]; Protocol Stop: 02/28/25 21:59 Lactated Ringer's (Lactated Ringers) 1,000 mls @ 75 mls/hr IV .[id number] [place] Stop: 03/23/25 13:14 Lorazepam (Lorazepam 0.5 Mg Tablet) 0.5 mg PO Q8HR PRN PRN Reason: ANXIETY Stop: 02/26/25 13:06 Lorazepam (Lorazepam 2 Mg/Ml Vial) 2 mg IVP X1 PRN PRN Reason: seizure Stop: 02/26/25 13:11 Ondansetron HCl (Ondansetron Inj 2 Mg/Ml Inj 2 Ml) 4 mg IV Q6H PRN; Protocol PRN Reason: NAUSEA OR VOMITING Stop: 03/23/25 13:02 Pantoprazole Sodium (Pantoprazole Inj 40 Mg Vial) 40 mg IVP QDAY [place] Stop: 03/24/25 08:59 Quetiapine Fumarate (Quetiapine Fumarate 100 Mg Tablet) 200 mg PO BID [place] Stop: 03/23/25 20:59 Sodium Chloride (Sodium Chloride Rt 10% 15 Ml Nebu) 5 ml INH X1 ONE Stop: 02/21/25 13:05 Discontinued Medications Acetaminophen (Acetaminophen Supp 650 Mg Supp) 650 mg AL X1 ONE Stop: 02/21/25 08:54 Last Admin: 02/21/25 09:58 Dose: 650 mg Albuterol/Ipratropium (Albuterol/Ipratropium (Duoneb) Rt Vane 3 Ml Nebu) 3 ml INH X1 ONE Stop: 02/21/25 12:10 Last Admin: 02/21/25 12:30 Dose: 3 ml Sodium Chloride (Ns) 1,000 mls @ 1,000 mls/hr IV .Q1H ONE Stop: 02/21/25 09:48 Last Infusion: 02/21/25 12:32 Dose: Infused Piperacillin/Tazobactam/Dextrose (Zosyn) 3.375 gm in 50 mls @ 100 mls/hr IV X1 ONE Stop: 02/21/25 09:21 Last Infusion: 02/21/25 10:38 Dose: Infused Piperacillin/Tazobactam/Dextrose (Zosyn) 3.375 gm in 50 mls @ 100 mls/hr IV X1 ONE Stop: 02/21/25 12:39 Last Admin: 02/21/25 12:31 Dose: Not Given Doxycycline Hyclate 100 mg/ (Sodium Chloride) 100 mls @ 100 mls/hr IV X1 ONE Stop: 02/21/25 13:08 Last Admin: 02/21/25 12:31 Dose: Not Given Cefepime HCl 2 gm/ Sodium (Chloride) 50 mls @ 100 mls/hr IV Q8HR [place] Stop: 02/28/25 12:14 Last Admin: 02/21/25 12:39 Dose: Not Given Piperacillin Sod/Tazobactam (Sod 4.5 gm/ Sodium Chloride) 100 mls @ 200 mls/hr IV X1 ONE Stop: 02/21/25 13:14 Levetiracetam (Levetiracetam Inj 100 Mg/Ml Vial 5ml) 1,000 mg IVP X1 ONE Stop: 02/21/25 12:10 Last Admin: 02/21/25 12:42 Dose: 1,000 mg Assessment & Plan Plan Анна Pickens is a 69-year-old female with a past medical history of dementia secondary to Alzheimer disease, paranoid depression, who is disfluent at baseline and presented from home on 02/21 after seizure-like activity. Admitted for management of new onset seizure likely secondary to pneumonia. #New onset seizure likely secondary to bibasilar pneumonia Presents with seizure-like activity as described by son with no previous episodes noted. Likely secondary to pneumonia seen on CXR but could also be medication-induced. ? Follow-up EEG ? Lorazepam 2 mg as needed for seizure activity ? N.p.o., pending speech evaluation ? LR at 75 cc/h ? Aspiration precautions ? Will hold on neurology consult and antiepileptics at this time as likely due to pneumonia #Bibasilar pneumonia Per son, patient has been coughing for the last few days but no fever or chills noted. No leukocytosis but delta noted from 4.3 to 8.2. ? Zosyn 3.375 g IV every 8 hours (02/21-) given history of ESBL E. coli bacteremia and UTI resistant to cefepime ? Follow-up blood and urine cultures ? Follow-up Pro-Gato #History of ? Alzheimer's vs Parkinsons dementia #History of paranoid schizophrenia ? Quetiapine 200 mg p.o. twice daily ? Lorazepam 0.5 mg p.o. 3 times daily as needed for anxiety ? Benztropine 1 mg p.o. at bedtime Hospital management: Disposition: treatment of pneumonia and new onset seizure Fluids: LR at 75 cc/hr Diet: NPO, pending speech evaluation Lines: PIV DVT prophylaxis: heparin SC BID GI prophylaxis: pantoprazole 40 mg IV CODE STATUS: full code ----- Plan discussed with attending physician Dr. Gab Urbina MD PGY-1 Internal Medicine Attending Provider Attestation/Addendum I have discussed and was present for the essential components of the history, physical examination, diagnosis, and treatment plan with the resident. I agree with the patient's care as documented by the resident and amended herein by me. Segundo De Guzman DO. Although this document has been carefully reviewed, there may still be some phonetic and other typographical errors. These errors are purely grammatical due to imperfections in the software program and should not be construed in any way to compromise the substance of the patient's medical care during this visit.
[2025-02-21] MEDS: PIPER/TAZO INJ 4.5 GM in SODIUM CHLORIDE 0.9% (POP) 100 ML IV (13:34)
[2025-02-21 15:45] LABS: Procalcitonin 0.07 ng/ml (0.0-0.49)
[2025-02-21] MEDS: RINGERS LACTATED 1000 ML 1,000 ML 75 ML IV (16:29)
[2025-02-21 18:33] LABS: Path Review Blood Smear Sent to Pathologist
[2025-02-21] MEDS: MORPHINE SULF INJ 10 MG/ML VIAL 2 MG IVP (21:09)
[2025-02-21] MEDS: OLANZapine INJ 10 MG, Sterile Water 2.1 ML IM (21:16)
[2025-02-21] MEDS: HEPARIN SOD INJ 5000 UNIT/ML VIAL SC (21:17)
[2025-02-22] VITALS (7 sets, daily range): BP systolic 136–155; BP diastolic 84–102; PULSE 67–84; RESP 16–20; TEMP 36.2–36.8; O2SAT 93–98
[2025-02-22] MEDS: LORazepam 2 MG/ML VIAL IVP (01:07)
--- NOTE | 2025-02-22 02:51 | PC.RT ---
EEG complete and ready to read.
[2025-02-22] MEDS: PIPER/TAZO 3.375 GM PREMIX 3.375 GM/50 ML BAG IV ×3 (05:54→21:10)
[2025-02-22] MEDS: RINGERS LACTATED 1000 ML 1,000 ML 75 ML IV (05:54)
[2025-02-22 07:43] LABS: Anion Gap 8 (7-16); BUN/Creatinine Ratio 13 Ratio (12-20); Blood Urea Nitrogen 12 mg/dL (9-23); Calcium 8.8 mg/dL (8.3-10.6); Carbon Dioxide 26.9 mMol/L (20.0-31.0); Chloride 110 mMol/L (98-107); Creatinine (Component) 0.9 mg/dL (0.6-1.3); Estimated Creatinine Clearance 104.6 mL/min (>60); Glucose 130 mg/dL (74-106); Osmolality,Calculated 290 (275-295); Phosphorous 2.6 mg/dL (2.4-5.1); Potassium 3.1 mMol/L (3.4-5.1); Sodium 145 mMol/L (136-145); eGFR > 60 See Note
[2025-02-22 07:48] LABS: Basophils # (Auto) 0.1 Thou/mm3 (0.0-0.2); Basophils % (Auto) 1 % (0-2.5); Eosinophils # (Auto) 0.2 Thou/mm3 (0.0-0.5); Eosinophils % (Auto) 2 % (0-10); Hematocrit 33.7 % (36.0-46.0); Hemoglobin 11.4 g/dL (12.0-16.0); Immature Granulocytes % (Auto) 1 % (0-0); Immature Granulocytes Auto 0.04 Thou/mm3 (0.00-0.00); Lymphocytes # (Auto) 0.7 Thou/mm3 (1.0-4.8); Lymphocytes % (Auto) 9 % (10-50); Mean Corpuscular HGB Conc 33.8 g/dl (31.0-37.0); Mean Corpuscular Hemoglobin 29.1 pg (25.0-35.0); Mean Corpuscular Volume 86 fL (80-100); Monocytes # (Auto) 0.6 Thou/mm3 (0.0-0.8); Monocytes % (Auto) 7 % (0-12); Neutrophils # (Auto) 6.9 Thou/mm3 (1.8-7.7); Neutrophils % (Auto) 81 % (37-80); Nucleated Red Blood Cell % 0 /100 WBC (0); Platelet Count 330 Thou/mm3 (140-440); RDW Standard Deviation 46.5 fL (36.4-46.3); Red Blood Count 3.92 Miln/mm3 (4.00-5.20); White Blood Count 8.6 Thou/mm3 (3.6-11.0)
[2025-02-22] MEDS: POTASSIUM CHL 10 mEq IVPB 10 MEQ/100 ML BAG 100 MEQ IV ×4 (08:31→14:18)
[2025-02-22] MEDS: PANTOPRAZOLE INJ 40 MG VIAL IVP (08:32)
[2025-02-22] MEDS: HEPARIN SOD INJ 5000 UNIT/ML VIAL SC ×2 (08:32→21:22)
--- NOTE | 2025-02-22 10:38 | PC.SS ---
Анна Pickens is 69-year-old female admitted to Med-Surg for SZ, PNA. SS conducted bedside contact with the patient to complete initial assessment and to discuss discharge planning, pt was sleeping therefore SS contacted pts Next of Kin Darshan Carty [phone].? Darshan confirmed pt demographic information. He identifies himself as her surrogate decision maker. 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 Darshan reports pt requiring a lot of assistance at home, she has a wheelchair, 3in1 BSC and hospital bed. Pts PCP is Dr. Espinoza last visit was in January and her pharmacy of choice is [facility] in [place]. DC options discussed, pt son wishes to return home. Fam will provide transportation upon DC. No further intervention required at this time, director of social media marketing would be available to address any further concerns. DC Plan: Home Contact: Darshan Carty [phone]
--- NOTE | 2025-02-22 11:53 | PD.RESPRO ---
Documentation for date of: 02/22/25 Subjective Subjective Interval history: No acute overnight events noted. Seen and examined at bedside and patient was tired but would respond to her name. Noted to have received 2 mg IV lorazepam overnight for agitation but no reported seizures. Vital signs stable, afebrile, no leukocytosis, hemoglobin stable, K 3.1 (repleted with 40 mEq), otherwise CHEM panel unremarkable. Blood and urine cultures pending, will continue with Zosyn given history of ESBL E. coli resistant to cefepime. Exam Vital Signs Temp Pulse Resp BP Pulse Ox O2 Del Method O2 Flow Rate 98.0 F 70 20 138/101 H 96 Room Air 3 02/22/25 08:00 02/22/25 08:00 02/22/25 08:00 02/22/25 08:00 02/22/25 08:00 02/22/25 08:00 02/21/25 16:02 Narrative Exam General: alert, responds to questions but disfluent, no acute distress, occasionally speaks in one word responses but mostly unintelligible HEENT: NC/AT, mucous membranes moist, bilateral sclera anicteric Cardiovascular: regular rate and rhythm, S1/S2 present, no murmurs appreciated Pulmonary: clear to auscultation bilaterally, no rales/rhonchi/wheezes Abdominal: soft, non-tender, non-distended, no rebound/guarding, normal bowel sounds present Musculoskeletal: normal ROM, no peripheral edema Skin: warm and dry, intact, no rashes Objective Labs 02/22/25 06:45 02/22/25 06:45 Labs: Laboratory Results - last 24 hr 02/21/25 02/22/25 08:56 06:45 WBC 8.6 RBC 3.92 L Hgb 11.4 L Hct 33.7 L MCV 86 MCH 29.1 MCHC 33.8 RDW Std Deviation 46.5 H Plt Count 330 Neut % (Auto) 81 H Lymph % (Auto) 9 L [place] % (Auto) 7 Eos % (Auto) 2 Baso % (Auto) 1 Neut # (Auto) 6.9 Lymph # (Auto) 0.7 L [place] # (Auto) 0.6 Eos # (Auto) 0.2 Baso # (Auto) 0.1 Immature Gran # (Auto) 0.04 H Absolute Nucleated RBC 0.00 Immature Gran % 1 H Nucleated RBC % 0 Smear Path Review Sent to Pathologist Sodium 145 Potassium 3.1 L Chloride 110 H Carbon Dioxide 26.9 Anion Gap 8 BUN 12 Creatinine 0.9 Estim Creat Clear Calc 104.6 eGFR > 60 BUN/Creatinine Ratio 13 Glucose 130 H Calculated Osmolality 290 Calcium 8.8 Phosphorus 2.6 Magnesium 2.0 Procalcitonin 0.07 ABG Interpretation ABG results: 02/21/25 10:33 ABG pH 7.47 H ABG pCO2 37 ABG pO2 72 L ABG HCO3 27 H ABG O2 Saturation 97 ABG Base Excess 3 Quality Measures Quality Measures none Advance care planning discussed with:: patient and child Assessment & Plan Assessment Current Active Medications: Generic Name Dose Route Start Last Admin Trade Name Freq PRN Reason Stop Dose Admin Acetaminophen 650 mg 02/21/25 13:02 Acetaminophen 325 Mg Tablet PO 03/23/25 13:01 Q6H PRN PAIN 1-3 OR FEVER > 100.4 Benztropine Mesylate 1 mg 02/21/25 21:00 02/21/25 21:17 Benztropine 0.5 Mg Tablet PO 03/23/25 20:59 Not Given HS [place] Heparin Sodium (Porcine) 5,000 unit 02/21/25 21:00 02/22/25 08:32 Heparin Sod Inj 5000 Unit/Ml Vial SC 03/07/25 20:59 5,000 unit BID [place] Administration Piperacillin/Tazobactam/Dextrose 3.375 gm in 50 mls @ 12.5 mls/hr 02/21/25 22:00 02/22/25 05:54 Zosyn IV 02/28/25 21:59 12.5 mls/hr Q8HR [place] Administration Protocol Lactated Ringer's 1,000 mls @ 75 mls/hr 02/21/25 13:15 02/22/25 05:54 Lactated Ringers IV 03/23/25 13:14 75 mls/hr .[id number] [place] Administration Potassium Chloride 10 meq in 100 mls @ 100 mls/hr 02/22/25 08:09 02/22/25 11:39 Kcl Ivpb IV 02/22/25 12:08 100 mls/hr Q1H [place] Administration Lorazepam 0.5 mg 02/21/25 13:07 Lorazepam 0.5 Mg Tablet PO 02/26/25 13:06 Q8HR PRN ANXIETY Lorazepam 2 mg 02/21/25 13:12 Lorazepam 2 Mg/Ml Vial IVP X1 PRN seizure Ondansetron HCl 4 mg 02/21/25 13:03 Ondansetron Inj 2 Mg/Ml Inj 2 Ml IV 03/23/25 13:02 Q6H PRN NAUSEA OR VOMITING Protocol Pantoprazole Sodium 40 mg 02/22/25 09:00 02/22/25 08:32 Pantoprazole Inj 40 Mg Vial IVP 03/24/25 08:59 40 mg QDAY [place] Administration Quetiapine Fumarate 200 mg 02/21/25 21:00 02/21/25 21:15 Quetiapine Fumarate 100 Mg Tablet PO 03/23/25 20:59 Not Given BID [place] Plan Анна Pickens is a 69-year-old female with a past medical history of dementia secondary to Alzheimer disease, paranoid depression, who is disfluent at baseline and presented from home on 02/21 after seizure-like activity. Admitted for management of new onset seizure likely secondary to pneumonia. #New onset seizure likely secondary to bibasilar pneumonia Presents with seizure-like activity as described by son with no previous episodes noted. Likely secondary to pneumonia seen on CXR but could also be medication-induced. Passed speech swallow evaluation and placed on dysphagia 2 diet. ? Follow-up EEG ? Lorazepam 2 mg as needed for seizure activity ? Aspiration precautions ? Will hold on neurology consult and antiepileptics at this time as likely due to pneumonia #Bibasilar pneumonia Per son, patient has been coughing for the last few days but no fever or chills noted. No leukocytosis but delta noted from 4.3 to 8.2. Procal negative. ? Zosyn 3.375 g IV every 8 hours (02/21-) given history of ESBL E. coli bacteremia and UTI resistant to cefepime ? Follow-up blood and urine cultures #History of ? Alzheimer's vs Parkinsons dementia #History of paranoid schizophrenia ? Quetiapine 200 mg p.o. twice daily ? Lorazepam 0.5 mg p.o. 3 times daily as needed for anxiety ? Benztropine 1 mg p.o. at bedtime Hospital management: Disposition: treatment of pneumonia and new onset seizure Fluids: none Diet: dysphagia 2 diet Lines: PIV DVT prophylaxis: heparin SC BID GI prophylaxis: pantoprazole 40 mg IV CODE STATUS: full code ----- Plan discussed with attending physician Dr. Gab Urbina MD PGY-1 Internal Medicine Attending Provider Attestation/Addendum I have discussed and was present for the essential components of the history, physical examination, diagnosis, and treatment plan with the resident. I agree with the patient's care as documented by the resident and amended herein by me. Segundo De Guzman, DO. Patient seen and evaluated this AM. No acute events overnight, vital signs stable, patient afebrile, patient on room air, SpO2 96%. WBC 8.6, sodium 145, potassium 3.114 be repleted. Blood cultures NGTD, urine cultures pending. EEG was ordered and is pending. If patient did have a seizure, likely secondary to underlying infection which may have lowered the seizure threshold. Will continue Zosyn for now considering history of ESBL E. coli bacteremia and UTI. Will continue to follow with cultures and adjust antibiotics appropriately. Will continue to monitor closely Although this document has been carefully reviewed, there may still be some phonetic and other typographical errors. These errors are purely grammatical due to imperfections in the software program and should not be construed in any way to compromise the substance of the patient's medical care during this visit.
--- NOTE | 2025-02-22 15:47 | PC.SS ---
Rounding: on IV ABX pending cultures
[2025-02-22] MEDS: QUEtiapine FUMARATE 100 MG TABLET 200 MG PO (21:10)
[2025-02-22] MEDS: BENZTROPINE 0.5 MG TABLET 1 MG PO (21:10)
[2025-02-23] VITALS: BP 134/75; PULSE 70; RESP 16; TEMP 36.7; O2SAT 92
[2025-02-23 04:00] VITALS: BP 156/90; PULSE 76; RESP 16; TEMP 36.2; O2SAT 92
[2025-02-23] MEDS: PIPER/TAZO 3.375 GM PREMIX 3.375 GM/50 ML BAG IV (05:44)
[2025-02-23 06:56] LABS: Basophils # (Auto) 0.1 Thou/mm3 (0.0-0.2); Basophils % (Auto) 1 % (0-2.5); Eosinophils # (Auto) 0.3 Thou/mm3 (0.0-0.5); Eosinophils % (Auto) 3 % (0-10); Hematocrit 33.6 % (36.0-46.0); Immature Granulocytes % (Auto) 0 % (0-0); Immature Granulocytes Auto 0.03 Thou/mm3 (0.00-0.00); Lymphocytes # (Auto) 0.8 Thou/mm3 (1.0-4.8); Lymphocytes % (Auto) 10 % (10-50); Mean Corpuscular HGB Conc 32.7 g/dl (31.0-37.0); Mean Corpuscular Volume 89 fL (80-100); Monocytes # (Auto) 0.8 Thou/mm3 (0.0-0.8); Monocytes % (Auto) 11 % (0-12); Neutrophils # (Auto) 5.7 Thou/mm3 (1.8-7.7); Neutrophils % (Auto) 74 % (37-80); Nucleated Red Blood Cell % 0 /100 WBC (0); Platelet Count 308 Thou/mm3 (140-440); RDW Standard Deviation 47.8 fL (36.4-46.3); Red Blood Count 3.79 Miln/mm3 (4.00-5.20); White Blood Count 7.6 Thou/mm3 (3.6-11.0)
[2025-02-23 07:01] LABS: Anion Gap 10 (7-16); BUN/Creatinine Ratio 11 Ratio (12-20); Blood Urea Nitrogen 10 mg/dL (9-23); Calcium 8.8 mg/dL (8.3-10.6); Carbon Dioxide 26.3 mMol/L (20.0-31.0); Chloride 108 mMol/L (98-107); Creatinine (Component) 0.9 mg/dL (0.6-1.3); Estimated Creatinine Clearance 104.6 mL/min (>60); Glucose 126 mg/dL (74-106); Osmolality,Calculated 287 (275-295); Phosphorous 3.4 mg/dL (2.4-5.1); Sodium 144 mMol/L (136-145); eGFR > 60 See Note
[2025-02-23 07:46] VITALS: BP 169/89; PULSE 74; RESP 17; TEMP 36.8; O2SAT 95
[2025-02-23] MEDS: QUEtiapine FUMARATE 100 MG TABLET 200 MG PO ×2 (09:50→20:19)
[2025-02-23] MEDS: HEPARIN SOD INJ 5000 UNIT/ML VIAL SC ×2 (09:51→20:20)
[2025-02-23] MEDS: PANTOPRAZOLE INJ 40 MG VIAL IVP (09:51)
--- NOTE | 2025-02-23 09:57 | PD.IDPROG ---
Subjective Subjective Interval history: apparent sz noted. pt has no recollection. quinolones can cause sz. they lower the sz threshold. Exam Vital Signs Temp Pulse Resp BP Pulse Ox O2 Del Method O2 Flow Rate 98.3 F 74 17 169/89 H 95 Nasal Cannula 3 02/23/25 07:46 02/23/25 07:46 02/23/25 07:46 02/23/25 07:46 02/23/25 07:46 02/23/25 07:46 02/21/25 16:02 Narrative Exam flat affect. neg urine, no further sz here. Objective - Internal Medicine Labs 02/23/25 05:09 02/23/25 05:09 Labs: Laboratory Results - last 24 hr 02/23/25 05:09 WBC 7.6 RBC 3.79 L Hgb 11.0 L Hct 33.6 L MCV 89 MCH 29.0 MCHC 32.7 RDW Std Deviation 47.8 H Plt Count 308 Neut % (Auto) 74 Lymph % (Auto) 10 [place] % (Auto) 11 Eos % (Auto) 3 Baso % (Auto) 1 Neut # (Auto) 5.7 Lymph # (Auto) 0.8 L [place] # (Auto) 0.8 Eos # (Auto) 0.3 Baso # (Auto) 0.1 Immature Gran # (Auto) 0.03 H Absolute Nucleated RBC 0.00 Immature Gran % 0 Nucleated RBC % 0 Sodium 144 Potassium 3.0 L Chloride 108 H Carbon Dioxide 26.3 Anion Gap 10 BUN 10 Creatinine 0.9 Estim Creat Clear Calc 104.6 eGFR > 60 BUN/Creatinine Ratio 11 L Glucose 126 H Calculated Osmolality 287 Calcium 8.8 Phosphorus 3.4 Magnesium 2.0 ABG Interpretation ABG results: 02/21/25 10:33 ABG pH 7.47 H ABG pCO2 37 ABG pO2 72 L ABG HCO3 27 H ABG O2 Saturation 97 ABG Base Excess 3 Assessment & Plan A&P Narrative stated sz. souds like it possibly from quinolone rx for urine with pos bc no overt need for more abx at this point in time.ua benign. so fac bc neg at almost 48h Time Spent With Patient Time: Total time spent is greater than 50% in coordination of care (as documented) at patient's floor/unit and/or counseling patient:
--- NOTE | 2025-02-23 09:59 | XR_ITS ---
Examination: Retroperitoneal ultrasound, complete Technique: Multiple high resolution grayscale images of the retroperitoneum obtained, including kidneys and bladder. Exam date and time:February 23, 2025 1306 hours INDICATIONS: Urinary tract infections this week FINDINGS: Right kidney 11.5 cm cortex 1.6 cm Moderate hydronephrosis Left kidney 12.7 cm cortex 1.7 cm Moderate hydronephrosis Contracted urinary bladder IMPRESSION: Moderate bilateral hydronephrosis
[2025-02-23] MEDS: POTASSIUM CHLORIDE 10% 20 MEQ/15 ML UDC 40 MEQ PO (10:21)
--- NOTE | 2025-02-23 10:47 | PC.SS ---
SS follow up note; EEG reading pending. On IV ABX. Patient will discharge back home when medically cleared.
[2025-02-23 11:45] LABS: Ammonia 10 uMol/L (11-32)
[2025-02-23 11:48] LABS: Thyroid Stimulating Hormone 1.52 uIU/mL (0.55-4.78)
[2025-02-23 12:00] VITALS: BP 150/75; PULSE 72; RESP 18; TEMP 36.6; O2SAT 96
[2025-02-23 12:17] VITALS: BMI 28.5
[2025-02-23 12:24] LABS: Folate > 24.00 ng/mL (>5.38); Hepatitis C Antibody Reactive (Non React); Vitamin B12 325 pg/mL (211-911)
[2025-02-23 12:46] LABS: Glucose Estimated Average 114 mg/dL (80-131); Hemoglobin A1C 5.6 % Hgb (4.8-6.0)
--- NOTE | 2025-02-23 13:03 | PD.RESCONSUL ---
HPI Data of Consult Requesting Physician: Audie De Guzman DO Admitting Provider: Audie De Guzman DO Attending Provider: Audie De Guzman DO Primary Care Provider: Katie Cason CNM Consult Narrative History of present illness: A 69-year-old female with a past medical history of Alzheimer disease, paranoid schizophrenia presented from home on 02/21 after seizure-like activity. Patient was recently admitted for UTI, found out to have ESBL E. coli sepsis and required short-term intubation and was discharged on levofloxacin. Per son, as far as he knows, patient has never had a seizure or had seizure-like activity in the past. He did mention that patient was starting to develop a cough over the last few days but no fever or chills noted. Patient was admitted to medical floor for new onset seizure as well as possible pneumonia management. Consulted to ID for further recommendation in regards to most recent ESBL UTI and pneumonia management. cc:: cc: Audie De Guzman DO Exam Vital Signs Temp Pulse Resp BP Pulse Ox O2 Del Method O2 Flow Rate 97.9 F 72 18 150/75 H 96 Nasal Cannula 3 02/23/25 12:00 02/23/25 12:00 02/23/25 12:00 02/23/25 12:00 02/23/25 12:00 02/23/25 12:00 02/21/25 16:02 Narrative Exam General: alert, responds to questions but disfluent, no acute distress, occasionally speaks in one word responses but mostly unintelligible HEENT: NC/AT, mucous membranes moist, bilateral sclera anicteric Cardiovascular: regular rate and rhythm, S1/S2 present, no murmurs appreciated Pulmonary: clear to auscultation bilaterally, no rales/rhonchi/wheezes Abdominal: soft, non-tender, non-distended, no rebound/guarding, normal bowel sounds present Musculoskeletal: normal ROM, no peripheral edema Skin: warm and dry, intact, no rashes Results Labs 02/25/25 04:58 02/25/25 04:58 Labs: Short CBC 02/23/25 Range/Units 05:09 WBC 7.6 (3.6-11.0) Thou/mm3 Hgb 11.0 L (12.0-16.0) g/dL Hct 33.6 L (36.0-46.0) % Plt Count 308 (140-440) Thou/mm3 BMP 02/23/25 05:09 Sodium 144 Potassium 3.0 L Chloride 108 H Carbon Dioxide 26.3 BUN 10 Creatinine 0.9 Glucose 126 H Calcium 8.8 ABG Interpretation ABG results: 02/21/25 10:33 ABG pH 7.47 H ABG pCO2 37 ABG pO2 72 L ABG HCO3 27 H ABG O2 Saturation 97 ABG Base Excess 3 Quality Measures Quality Measures none Advance care planning discussed with:: child and other Medications Home Medications and Allergies Home Medications ?Medication ?Instructions ?Recorded ?Confirmed ?Type benztropine 1 mg tablet 1 mg PO HS 12/07/22 02/21/25 History bisacodyl 5 mg tablet,delayed 10 mg PO QDAY 02/13/25 02/21/25 History release (Dulcolax (bisacodyl)) lorazepam 0.5 mg tablet 0.5 mg PO TID PRN anxiety 02/13/25 02/21/25 History Allergies Allergy/AdvReac Type Severity Reaction Status Date / Time No Known Allergies Allergy Verified 10/03/22 15:20 Visit Medications Acetaminophen (Acetaminophen 325 Mg Tablet) 650 mg PO Q6H PRN PRN Reason: PAIN 1-3 OR FEVER > 100.4 Stop: 03/23/25 13:01 Benztropine Mesylate (Benztropine 0.5 Mg Tablet) 1 mg PO HS [place] Stop: 03/23/25 20:59 Last Admin: 02/22/25 21:10 Dose: 1 mg Heparin Sodium (Porcine) (Heparin Sod Inj 5000 Unit/Ml Vial) 5,000 unit SC BID [place] Stop: 03/07/25 20:59 Last Admin: 02/23/25 09:51 Dose: 5,000 unit Lorazepam (Lorazepam 0.5 Mg Tablet) 0.5 mg PO Q8HR PRN PRN Reason: ANXIETY Stop: 02/26/25 13:06 Lorazepam (Lorazepam 2 Mg/Ml Vial) 2 mg IVP X1 PRN PRN Reason: seizure Ondansetron HCl (Ondansetron Inj 2 Mg/Ml Inj 2 Ml) 4 mg IV Q6H PRN; Protocol PRN Reason: NAUSEA OR VOMITING Stop: 03/23/25 13:02 Quetiapine Fumarate (Quetiapine Fumarate 100 Mg Tablet) 200 mg PO BID [place] Stop: 03/23/25 20:59 Last Admin: 02/23/25 09:50 Dose: 200 mg Discontinued Medications Acetaminophen (Acetaminophen Supp 650 Mg Supp) 650 mg RI X1 ONE Stop: 02/21/25 08:54 Last Admin: 02/21/25 09:58 Dose: 650 mg Albuterol/Ipratropium (Albuterol/Ipratropium (Duoneb) Rt Vane 3 Ml Nebu) 3 ml INH X1 ONE Stop: 02/21/25 12:10 Last Admin: 02/21/25 12:30 Dose: 3 ml Olanzapine 10 mg/ Sterile (Water 2.1 ml) 0 mg IM QDAY ONE Stop: 02/21/25 20:49 Last Admin: 02/21/25 21:16 Dose: 1 dose Sodium Chloride (Ns) 1,000 mls @ 1,000 mls/hr IV .Q1H ONE Stop: 02/21/25 09:48 Last Infusion: 02/21/25 12:32 Dose: Infused Piperacillin/Tazobactam/Dextrose (Zosyn) 3.375 gm in 50 mls @ 100 mls/hr IV X1 ONE Stop: 02/21/25 09:21 Last Infusion: 02/21/25 10:38 Dose: Infused Piperacillin/Tazobactam/Dextrose (Zosyn) 3.375 gm in 50 mls @ 100 mls/hr IV X1 ONE Stop: 02/21/25 12:39 Last Admin: 02/21/25 12:31 Dose: Not Given Doxycycline Hyclate 100 mg/ (Sodium Chloride) 100 mls @ 100 mls/hr IV X1 ONE Stop: 02/21/25 13:08 Last Admin: 02/21/25 12:31 Dose: Not Given Cefepime HCl 2 gm/ Sodium (Chloride) 50 mls @ 100 mls/hr IV Q8HR [place] Stop: 02/28/25 12:14 Last Admin: 02/21/25 12:39 Dose: Not Given Potassium Chloride (Kcl Ivpb) 100 mls @ 100 mls/hr IV Q1H [place] Stop: 02/21/25 14:30 Last Infusion: 02/21/25 15:10 Dose: Infused Piperacillin/Tazobactam/Dextrose (Zosyn) 3.375 gm in 50 mls @ 12.5 mls/hr IV Q8HR [facility]; Protocol Stop: 02/28/25 21:59 Last Admin: 02/23/25 05:44 Dose: 12.5 mls/hr Piperacillin Sod/Tazobactam (Sod 4.5 gm/ Sodium Chloride) 100 mls @ 200 mls/hr IV X1 ONE Stop: 02/21/25 13:14 Last Infusion: 02/21/25 14:15 Dose: Infused Lactated Ringer's (Lactated Ringers) 1,000 mls @ 75 mls/hr IV .[id number] [facility] Stop: 03/23/25 13:14 Last Admin: 02/22/25 05:54 Dose: 75 mls/hr Potassium Chloride (Kcl Ivpb) 10 meq in 100 mls @ 100 mls/hr IV Q1H [facility] Stop: 02/22/25 12:08 Last Admin: 02/22/25 14:18 Dose: 100 mls/hr Levetiracetam (Levetiracetam Inj 100 Mg/Ml Vial 5ml) 1,000 mg IVP X1 ONE Stop: 02/21/25 12:10 Last Admin: 02/21/25 12:42 Dose: 1,000 mg Lorazepam (Lorazepam 2 Mg/Ml Vial) 2 mg IVP X1 ONE Stop: 02/22/25 00:48 Last Admin: 02/22/25 01:07 Dose: 2 mg Morphine Sulfate (Morphine Sulf Inj 10 Mg/Ml Vial) 2 mg IVP X1 ONE Stop: 02/21/25 20:49 Last Admin: 02/21/25 21:09 Dose: 2 mg Pantoprazole Sodium (Pantoprazole Inj 40 Mg Vial) 40 mg IVP QDAY [facility] Stop: 03/24/25 08:59 Last Admin: 02/23/25 09:51 Dose: 40 mg Potassium Chloride (Potassium Chloride 20 Meq Tabcr) 40 meq PO X1 ONE Stop: 02/23/25 08:39 Last Admin: 02/23/25 10:21 Dose: Not Given Potassium Chloride (Potassium Chloride 10% 20 Meq/15 Ml Udc) 40 meq PO X1 ONE Stop: 02/23/25 10:16 Last Admin: 02/23/25 10:21 Dose: 40 meq Sodium Chloride (Sodium Chloride Rt 10% 15 Ml Nebu) 5 ml INH X1 ONE Stop: 02/21/25 13:05 Last Admin: 02/21/25 15:10 Dose: Not Given Assessment & Plan Plan A 69-year-old female with a past medical history of Alzheimer disease, paranoid depression presented from home on 02/21 after seizure-like activity, which was started after patient diagnosed ESBL UTI and got discharged on levofloxacin. During last couple of days patient also had cough but no fever, chills or any other symptoms associated with pneumonia. Consulted to ID for further recommendation in regards to most recent ESBL UTI and pneumonia management. #New onset seizure likely (patient was on levofloxacin which has high risk for seizure) #History of ? Alzheimer's vs Parkinsons dementia #History of paranoid schizophrenia Presents with seizure-like activity as described by son with no previous episodes noted, seizure activities have started after patient initiated treatment for ESBL UTI with levofloxacin. ? Imaging studies are negative for any structural or pathological changes in the brain ? Follow-up EEG ? CSF is not clinically significant for bacterial or viral infection ? Seizure is managed by primary team and neurology team ? Patient completed 7 days of antibiotic (levofloxacin), and does not show any signs of infection including no fever, no white blood cells, only concern could be chest x-ray which shows possible bilateral lower lobe consolidation ? Per ID standpoint patient is okay to stop antibiotics ? Follow-up with symptoms, labs and vitals #Chronic hepatitis C ? We ordered hep panel to rule out any underlying pathology associated with current health related concerns which came back positive for hepatitis C ? Liver ultrasound was ordered ? We will follow-up with liver ultrasound results, and will decide further management IBret MD PGY3 reviewed and discussed the case with attending physician Dr. Jain
--- NOTE | 2025-02-23 13:31 | ESCONSULT_ITS ---
RE: JUNIOR LOVING : 1955 DATE OF CONSULTATION: 02/23/2025 REFERRING PHYSICIAN: Dr. De Guzman. REASON FOR CONSULTATION: History of UTI and seizures. HISTORY OF PRESENT ILLNESS: The patient had UTI about a month ago by lab. It is unclear if she had symptoms. She also had positive blood cultures and so she was given IV treatment. She has had a week of treatment. Her followup UA and blood cultures were negative. She is readmitted for a seizure. The seizure may be related to the quinolone therapy she received. She did receive maximum doses of 750 daily of Levaquin. It is fairly significant dose for a woman of her age. She is diabetic and has some other health problems as noted. We will check an A1c and make sure that it is adequately addressed. There is a history of possible dementia also noted. ASSESSMENT: 1. History of altered mentation and seizure with possible seizure noted. 2. Borderline diabetes. 3. Negative CSF evaluation. RECOMMENDATIONS: The patient has had more than 7 days of antibiotics, so I am going to stop her IV antibiotic therapy at this time. She may go home or return to her primary place of residence at your discretion. I will go ahead and get some labs to evaluate her for her altered mentation and seizure, but if you wish to have Neurology see her, I do not object. I will likely check on her again down the road, but otherwise her visit will be superficial on Sunday at most. DT: 10:50:47 TT: 11:50:00 Ref: [id number] - TID: [id number] [facility]
--- NOTE | 2025-02-23 14:15 | XR_ITS ---
Examination: Abdomen sonogram, complete Date and time of exam: February 23, 2025 1430 hours INDICATIONS: Diagnosis chronic hepatitis C. Technique: Multiple real-time grayscale transabdominal sonographic images of the abdomen have been obtained. Findings: Cholelithiasis, normal gallbladder wall Normal common bile duct 0.4 cm Pancreas obscured by bowel gas Aorta not visualized secondary to bowel gas Liver 17.5 cm fatty infiltration Normal hepatopedal portal venous flow Patent IVC Right kidney 11.7 cm cortex 1.2 cm Left kidney 10.1 cm cortex 1.7 cm Moderate bilateral hydronephrosis Spleen 11.5 cm IMPRESSION: Cholelithiasis, negative for cholecystitis Mild hepatomegaly Moderate bilateral hydronephrosis
[2025-02-23 16:00] VITALS: BP 166/101; PULSE 68; RESP 16; TEMP 36.4; O2SAT 100
--- NOTE | 2025-02-23 16:13 | PC.NURSE ---
Notified Dr. Delaney of pt BP 166/101. stated pt to be discharged.
--- NOTE | 2025-02-23 16:51 | PD.RESDS ---
Planned Discharge Date 02/23/25 DS: Providers Provider Date of admission: 02/21/25 13:01 Primary care physician: Katie Cason CNM Admitting Provider: Audie De Guzman DO Attending Provider on Admission: Audie De Guzman DO Consults: 02/21/25 13:11 Referral Speech Therapy Routine Comment: Instructions: Seizure-activity, Alzheimer dementia and pneumonia on CXR - please assess for aspiration risk 02/21/25 21:49 Consult Diabetic Routine Comment: Referral Liseth Routine Comment: Referral Registered Dietitian Routine Comment: Attending Provider on DC: Justine Herrera MD Discharging Provider: Justine Herrera MD Hospital Course Hospital Course Hospital course: A 69-year-old female with a past medical history of Alzheimer disease, paranoid schizophrenia presented from home on 02/21 after seizure-like activity. Patient was recently admitted for UTI, found out to have ESBL E. coli sepsis and required short-term intubation and was discharged on levofloxacin. Per son, as far as he knows, patient has never had a seizure or had seizure-like activity in the past. He did mention that patient was starting to develop a cough over the last few days but no fever or chills noted. Patient was admitted to medical floor for new onset seizure as well as possible pneumonia management. Consulted to ID for further recommendation in regards to most recent ESBL UTI and pneumonia management. Time Spent with Patient Time attestation: Total time spent providing and/or coordinating discharge services: Exam Vital Signs Temp Pulse Resp BP Pulse Ox O2 Del Method O2 Flow Rate 97.6 F 68 16 166/101 H 100 Nasal Cannula 3 02/23/25 16:02/23/25 16:02/23/25 16:02/23/25 16:02/23/25 16:02/23/25 16:02/21/25 16:02 Discharge Plan Plan Patient Disposition: Home w/HOME HEALTH Care Plan Goals: Please follow-up with your primary care physician within 1 week after discharge Please follow-up with your primary care physician for ultrasound of the liver for further workup given hep C antibody was reactive. Continue taking all home medications as prescribed. Please come back to the ER if symptoms persist or worsen Prescriptions/Referrals Prescriptions/Med Rec: Continued lorazepam 0.5 mg tablet 0.5 mg PO TID PRN (Reason: anxiety) Patient Comments: take 1 tablet by mouth three times a day if needed for anxiety bisacodyl [Dulcolax (bisacodyl)] 5 mg tablet,delayed release (DR/EC) 10 mg PO QDAY quetiapine 200 mg tablet 200 mg PO BID Qty: 60 0RF benztropine 1 mg tablet 1 mg PO HS Patient Comments: TAKE ONE TABLET BY MOUTH AT BEDTIME Discontinued levofloxacin 750 mg tablet 750 mg PO QDAY Patient Comments: take 1 tablet by mouth once daily for 4 days. Just had one more to take today. Referrals: Katie Cason CNM [Primary Care Provider] - Patient/Caregiver Discharge Instructions Other Discharge Activity Instructions:: Please follow-up with your primary care physician within 1 week after discharge Please follow-up with your primary care physician for ultrasound of the liver for further workup given hep C antibody was reactive. Continue taking all home medications as prescribed. Please come back to the ER if symptoms persist or worsen Print Language: Azeri Stand Alone Forms: [employer] Award Info., Patient Portal Info Letter Discharge Order Discharge Orders: Discharge (Routine); Ordered 02/23/25 Ordered By: Audie De Guzman
--- NOTE | 2025-02-23 18:33 | PC.NURSE ---
Called pt son Darshan regarding pt discharge. 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 Will plan on picking up pt tomorrow.
--- NOTE | 2025-02-23 19:24 | PC.NURSE ---
Discharge order placed at 1544. Per AM RN, Clay, family is unable to pick her up today. Dr. Ferrell was made aware.
[2025-02-23 20:00] VITALS: BP 143/87; PULSE 62; RESP 20; TEMP 36.3; O2SAT 96
[2025-02-23] MEDS: BENZTROPINE 0.5 MG TABLET 1 MG PO (20:19)
[2025-02-24] VITALS: BP 145/83; PULSE 67; RESP 18; TEMP 36.6; O2SAT 95
[2025-02-24 04:00] VITALS: BP 126/98; PULSE 71; RESP 20; TEMP 36.2; O2SAT 96
[2025-02-24 06:00] LABS: Basophils # (Auto) 0.1 Thou/mm3 (0.0-0.2); Basophils % (Auto) 1 % (0-2.5); Eosinophils # (Auto) 0.3 Thou/mm3 (0.0-0.5); Eosinophils % (Auto) 4 % (0-10); Hematocrit 33.8 % (36.0-46.0); Hemoglobin 10.9 g/dL (12.0-16.0); Immature Granulocytes % (Auto) 1 % (0-0); Immature Granulocytes Auto 0.03 Thou/mm3 (0.00-0.00); Lymphocytes # (Auto) 0.8 Thou/mm3 (1.0-4.8); Lymphocytes % (Auto) 12 % (10-50); Mean Corpuscular HGB Conc 32.2 g/dl (31.0-37.0); Mean Corpuscular Hemoglobin 28.7 pg (25.0-35.0); Mean Corpuscular Volume 89 fL (80-100); Monocytes # (Auto) 0.9 Thou/mm3 (0.0-0.8); Monocytes % (Auto) 14 % (0-12); Neutrophils # (Auto) 4.4 Thou/mm3 (1.8-7.7); Neutrophils % (Auto) 69 % (37-80); Nucleated Red Blood Cell % 0 /100 WBC (0); Platelet Count 304 Thou/mm3 (140-440); RDW Standard Deviation 48.9 fL (36.4-46.3); White Blood Count 6.4 Thou/mm3 (3.6-11.0)
[2025-02-24] MEDS: POLYETHYLENE GLYCOL 17 GM PACKET PO (06:00)
[2025-02-24] MEDS: SENNA TABLET 1 TAB PO ×2 (06:00→08:28)
[2025-02-24 06:32] LABS: Anion Gap 10 (7-16); BUN/Creatinine Ratio 11 Ratio (12-20); Blood Urea Nitrogen 9 mg/dL (9-23); Calcium 8.8 mg/dL (8.3-10.6); Carbon Dioxide 29.3 mMol/L (20.0-31.0); Chloride 107 mMol/L (98-107); Creatinine (Component) 0.8 mg/dL (0.6-1.3); Estimated Creatinine Clearance 78.9 mL/min (>60); Glucose 123 mg/dL (74-106); Osmolality,Calculated 290 (275-295); Phosphorous 3.6 mg/dL (2.4-5.1); Potassium 3.1 mMol/L (3.4-5.1); Sodium 146 mMol/L (136-145); eGFR > 60 See Note
--- NOTE | 2025-02-24 06:36 | PC.NURSE ---
Potassium 3.1, Dr. Ferrell was made aware. No new orders at this time. MD to let day team know.
--- NOTE | 2025-02-24 07:42 | PD.RESPRO ---
Documentation for date of: 02/23/25 Subjective Subjective Interval history: Overnight, no acute events reported. Patient was on IV antibiotics, but was discontinued by ID team. Unsure of ID consult on day of progress note. However due to patient's improvement of symptoms, antibiotics were discontinued. Patient seen and examined at bedside, and very calm, denying any complaints at this time. Patient was prepped to be discharged today, however family decided to appeal. Exam Vital Signs Temp Pulse Resp BP Pulse Ox O2 Del Method O2 Flow Rate 97.1 F 71 20 126/98 H 96 Nasal Cannula 4 02/24/25 04:00 02/24/25 04:00 02/24/25 04:00 02/24/25 04:00 02/24/25 04:00 02/24/25 04:00 02/24/25 04:00 Narrative Exam General Appearance: Well-developed and well-nourished. On nasal cannula. Patient able to respond to some questions with one word responses but mostly utters unintelligbile words. HEENT: NC/AT, no scleral icterus, no conjunctival pallor, MMM Lungs: CTAB, no wheezes or crackles appreciated CVS: RRR, S1/S2 heard, no murmurs or rubs appreciated ABD: Soft, non-tender, non-distended, BS + in all 4 quadrants EXT: no deformity/edema/lesions/cyanosis/clubbing, radial pulses 2+ BL, DP pulses 2 + BL SKIN: Skin exam normal without any rashes. Neuro: Alert and oriented x 1 to name. Unable to assess motor or sensory due to patient's current mental condition. Objective Labs 02/25/25 04:58 02/25/25 04:58 Labs: Laboratory Results - last 24 hr 02/23/25 02/23/25 02/24/25 05:09 11:05 05:37 WBC 6.4 RBC 3.80 L Hgb 10.9 L Hct 33.8 L MCV 89 MCH 28.7 MCHC 32.2 RDW Std Deviation 48.9 H Plt Count 304 Neut % (Auto) 69 Lymph % (Auto) 12 [place] % (Auto) 14 H Eos % (Auto) 4 Baso % (Auto) 1 Neut # (Auto) 4.4 Lymph # (Auto) 0.8 L [place] # (Auto) 0.9 H Eos # (Auto) 0.3 Baso # (Auto) 0.1 Immature Gran # (Auto) 0.03 H Absolute Nucleated RBC 0.00 Immature Gran % 1 H Nucleated RBC % 0 Sodium 146 H Potassium 3.1 L Chloride 107 Carbon Dioxide 29.3 Anion Gap 10 BUN 9 Creatinine 0.8 Estim Creat Clear Calc 78.9 eGFR > 60 BUN/Creatinine Ratio 11 L Glucose [address] Glu mg/dL 114 Hemoglobin A1c 5.6 Calculated Osmolality 290 Calcium 8.8 Phosphorus 3.6 Magnesium 2.0 Ammonia 10 L Vitamin B12 325 Folate > 24.00 TSH 1.52 Hepatitis C Antibody Reactive A ABG Interpretation ABG results: 02/21/25 10:33 ABG pH 7.47 H ABG pCO2 37 ABG pO2 72 L ABG HCO3 27 H ABG O2 Saturation 97 ABG Base Excess 3 Quality Measures Quality Measures none Advance care planning discussed with:: patient Assessment & Plan Assessment Current Active Medications: Generic Name Dose Route Start Last Admin Trade Name Freq PRN Reason Stop Dose Admin Acetaminophen 650 mg 02/21/25 13:02 Acetaminophen 325 Mg Tablet PO 03/23/25 13:01 Q6H PRN PAIN 1-3 OR FEVER > 100.4 Benztropine Mesylate 1 mg 02/21/25 21:00 02/23/25 20:19 Benztropine 0.5 Mg Tablet PO 03/23/25 20:59 1 mg HS [place] Administration Heparin Sodium (Porcine) 5,000 unit 02/21/25 21:00 02/23/25 20:20 Heparin Sod Inj 5000 Unit/Ml Vial SC 03/07/25 20:59 5,000 unit BID [place] Administration Lorazepam 0.5 mg 02/21/25 13:07 Lorazepam 0.5 Mg Tablet PO 02/26/25 13:06 Q8HR PRN ANXIETY Lorazepam 2 mg 02/21/25 13:12 Lorazepam 2 Mg/Ml Vial IVP X1 PRN seizure Ondansetron HCl 4 mg 02/21/25 13:03 Ondansetron Inj 2 Mg/Ml Inj 2 Ml IV 03/23/25 13:02 Q6H PRN NAUSEA OR VOMITING Protocol Polyethylene Glycol 17 gm 02/24/25 05:30 02/24/25 06:00 Polyethylene Glycol 17 Gm Packet PO 03/26/25 05:29 17 gm QDAY [place] Administration Quetiapine Fumarate 200 mg 02/21/25 21:00 02/23/25 20:19 Quetiapine Fumarate 100 Mg Tablet PO 03/23/25 20:59 200 mg BID [place] Administration Sennosides 1 tab 02/24/25 05:30 02/24/25 06:00 Senna Tablet PO 03/26/25 05:29 1 tab QDAY [place] Administration Protocol Plan Анна Pickens is a 69-year-old female with a past medical history of dementia secondary to Alzheimer disease, paranoid depression, who is disfluent at baseline and presented from home on 02/21 after seizure-like activity. Admitted for management of new onset seizure likely secondary to pneumonia. #New onset seizure likely secondary to bibasilar pneumonia Presents with seizure-like activity as described by son with no previous episodes noted. Likely secondary to pneumonia seen on CXR but could also be medication-induced. Passed speech swallow evaluation and placed on dysphagia 2 diet. EEG showed diffuse slowing, however significant artifact, neuro recommended to repeat EEG if baseline is not back to normal Patient has not noted to have any seizure activity, as a result lorazepam has not been given ? Lorazepam 2 mg as needed for seizure activity ? Aspiration precautions ? Will hold on neurology consult and antiepileptics at this time as likely due to pneumonia #Bibasilar pneumonia?resolved Per son, patient has been coughing for the last few days but no fever or chills noted. No leukocytosis but delta noted from 4.3 to 8.2. Procal negative. Blood cultures negative in the last 48 hours and urine culture showed no growth ? Zosyn 3.375 g IV every 8 hours (02/21-) given history of ESBL E. coli bacteremia and UTI resistant to cefepime ? Discontinued above antibiotics per ID team ? Follow-up blood and urine cultures #History of ? Alzheimer's vs Parkinsons dementia #History of paranoid schizophrenia ? Quetiapine 200 mg p.o. twice daily ? Lorazepam 0.5 mg p.o. 3 times daily as needed for anxiety ? Benztropine 1 mg p.o. at bedtime Hospital management: Disposition: treatment of pneumonia and new onset seizure Fluids: none Diet: dysphagia 2 diet Lines: PIV DVT prophylaxis: heparin SC BID GI prophylaxis: pantoprazole 40 mg IV CODE STATUS: full code Patient's plan and care discussed with my attending, Dr. Gab Herrera MD PGY-2 Attending Provider Attestation/Addendum I have discussed and was present for the essential components of the history, physical examination, diagnosis, and treatment plan with the resident. I agree with the patient's care as documented by the resident and amended herein by me. Segundo De Guzman, DO. Although this document has been carefully reviewed, there may still be some phonetic and other typographical errors. These errors are purely grammatical due to imperfections in the software program and should not be construed in any way to compromise the substance of the patient's medical care during this visit.
[2025-02-24 08:00] VITALS: BP 146/96; PULSE 63; RESP 19; TEMP 36.2; O2SAT 97
[2025-02-24] MEDS: HEPARIN SOD INJ 5000 UNIT/ML VIAL SC ×2 (08:28→20:45)
[2025-02-24] MEDS: QUEtiapine FUMARATE 100 MG TABLET 200 MG PO ×2 (08:28→20:46)
--- NOTE | 2025-02-24 08:57 | PC.CC ---
received fax from [facility], pt is open with them.
[2025-02-24] MEDS: POTASSIUM CHLORIDE 10% 20 MEQ/15 ML UDC 40 MEQ PO ×2 (09:38→11:29)
--- NOTE | 2025-02-24 10:40 | CHAP ---
Patient was visited by a Spiritual Care Volunteer on 02/24/2025 between 0900 and 0920 and received comfort, encouragement and/or prayer.
[2025-02-24] MEDS: LORazepam 0.5 MG TABLET PO (10:41)
--- NOTE | 2025-02-24 11:22 | ESPR_ITS ---
<Statement entered by Justine Herrera MD - 02/24/25 17:44> Patient seen and examined at bedside. No acute overnight events reported. Patient's family requested for appeal, and will go ahead with process today. Meanwhile, patient has been on 4 L nasal cannula and has downtrended nicely to room air. Otherwise, patient's labs are stable except for low potassium which was repleted. CT was ordered to evaluate for incidental hydronephrosis that was seen on retroperitoneal ultrasound. CT also showed an incidental finding of compression fracture of T12 with retroavulsion and posterior?superior margin of 5 mm. Communicated with son regarding findings, and stated that patient has been able to walk with assistance with her walker and no falls are documented per his watch or that he knows of. No documented falls noted in hospitalization. Will set up transfer for neurosurgical consult regarding plans for treatment versus surveillance. Patient's status of hep C antibody was confirmed by patient's family as well. I discussed with and supervised the events intern physician who took care of this patient. I personally saw and examined the patient and discussed the assessment and plan with the entire medicine team, including my attending Dr. De Guzman, I agree with most of the assessment and plan as documented below Justine Herrera M.D. PGY-2 Disclaimer: Despite multiple revisions, due to the dictation software being used, the document bellow may not be free of grammatical errors including phonetic/typographic errors. However, this does not deter from our commitment to providing health care in the patient's best interest in mind. Documentation for date of: 02/24/25 Subjective Subjective Interval history: No acute overnight events noted. Notified by nursing staff that family would like patient to remain in the hospital as she is still on 4 L nasal cannula and on IV antibiotics for her pneumonia and will be appealing discharge. Notified nursing staff to titrate down oxygen as tolerated, currently saturating 99% on 3 L and will titrate down further. Other vital signs stable, no leukocytosis, hemoglobin stable, K 3.1 and repleted. Infectious disease saw patient and consult placed and discontinued antibiotics. Ordered CT to evaluate for incidental hydronephrosis seen on retroperitoneal ultrasound and acute appearing, moderately severe compression fracture at T12 with retropulsion in posterior-superior margin of 5 mm incidentally found. Spoke to son who has not noted any recent falls and Cook placed with 2 L of output noted. Unable to perform formal neurological assessment as patient does not follow commands accurately. Exam Vital Signs Temp Pulse Resp BP Pulse Ox O2 Del Method O2 Flow Rate 97.2 F 63 19 146/96 H 97 Nasal Cannula 4 02/24/25 08:00 02/24/25 08:00 02/24/25 08:00 02/24/25 08:00 02/24/25 08:00 02/24/25 04:00 02/24/25 04:00 Narrative Exam General: alert, responds to questions but disfluent, no acute distress, occasionally speaks in one word responses but mostly unintelligible HEENT: NC/AT, mucous membranes moist, bilateral sclera anicteric Cardiovascular: regular rate and rhythm, S1/S2 present, no murmurs appreciated Pulmonary: clear to auscultation bilaterally, no rales/rhonchi/wheezes Abdominal: soft, non-tender, non-distended, no rebound/guarding, normal bowel sounds present Musculoskeletal: normal ROM, no peripheral edema Skin: warm and dry, intact, no rashes Objective Labs 02/24/25 05:37 02/24/25 05:37 Labs: Laboratory Results - last 24 hr 02/23/25 02/23/25 02/24/25 05:09 11:05 05:37 WBC 6.4 RBC 3.80 L Hgb 10.9 L Hct 33.8 L MCV 89 MCH 28.7 MCHC 32.2 RDW Std Deviation 48.9 H Plt Count 304 Neut % (Auto) 69 Lymph % (Auto) 12 George % (Auto) 14 H Eos % (Auto) 4 Baso % (Auto) 1 Neut # (Auto) 4.4 Lymph # (Auto) 0.8 L George # (Auto) 0.9 H Eos # (Auto) 0.3 Baso # (Auto) 0.1 Immature Gran # (Auto) 0.03 H Absolute Nucleated RBC 0.00 Immature Gran % 1 H Nucleated RBC % 0 Sodium 146 H Potassium 3.1 L Chloride 107 Carbon Dioxide 29.3 Anion Gap 10 BUN 9 Creatinine 0.8 Estim Creat Clear Calc 78.9 eGFR > 60 BUN/Creatinine Ratio 11 L Glucose [address] Glu mg/dL 114 Hemoglobin A1c 5.6 Calculated Osmolality 290 Calcium 8.8 Phosphorus 3.6 Magnesium 2.0 Ammonia 10 L Vitamin B12 325 Folate > 24.00 TSH 1.52 Hepatitis C Antibody Reactive A ABG Interpretation ABG results: 02/21/25 10:33 ABG pH 7.47 H ABG pCO2 37 ABG pO2 72 L ABG HCO3 27 H ABG O2 Saturation 97 ABG Base Excess 3 Quality Measures Quality Measures none Advance care planning discussed with:: patient Assessment & Plan Assessment Current Active Medications: Generic Name Dose Route Start Last Admin Trade Name Freq PRN Reason Stop Dose Admin Acetaminophen 650 mg 02/21/25 13:02 Acetaminophen 325 Mg Tablet PO 03/23/25 13:01 Q6H PRN PAIN 1-3 OR FEVER > 100.4 Benztropine Mesylate 1 mg 02/21/25 21:00 02/23/25 20:19 Benztropine 0.5 Mg Tablet PO 03/23/25 20:59 1 mg HS VIR[place]IE Administration Heparin Sodium (Porcine) 5,000 unit 02/21/25 21:00 02/24/25 08:28 Heparin Sod Inj 5000 Unit/Ml Vial SC 03/07/25 20:59 5,000 unit BID [place]IE Administration Lorazepam 0.5 mg 02/21/25 13:07 02/24/25 10:41 Lorazepam 0.5 Mg Tablet PO 02/26/25 13:06 0.5 mg Q8HR PRN Administration ANXIETY Lorazepam 2 mg 02/21/25 13:12 Lorazepam 2 Mg/Ml Vial IVP X1 PRN seizure Ondansetron HCl 4 mg 02/21/25 13:03 Ondansetron Inj 2 Mg/Ml Inj 2 Ml IV 03/23/25 13:02 Q6H PRN NAUSEA OR VOMITING Protocol Polyethylene Glycol 17 gm 02/24/25 05:30 02/24/25 06:00 Polyethylene Glycol 17 Gm Packet PO 03/26/25 05:29 17 gm QDAY VIR[place]IE Administration Quetiapine Fumarate 200 mg 02/21/25 21:00 02/24/25 08:28 Quetiapine Fumarate 100 Mg Tablet PO 03/23/25 20:59 200 mg BID V[place]IE Administration Sennosides 1 tab 02/24/25 05:30 02/24/25 08:28 Senna Tablet PO 03/26/25 05:29 1 tab QDAY V[place]IE Administration Protocol Plan Анна Pickens is a 69-year-old female with a past medical history of dementia secondary to Alzheimer disease, paranoid depression, who is disfluent at baseline and presented from home on 02/21 after seizure-like activity. Admitted for management of new onset seizure likely secondary to pneumonia. #Acute appearing moderately severe T12 compression fracture with retropulsion #Hydronephrosis as seen on retroperitoneal ultrasound CT A/P: acute appearing moderately severe T12 compression fracture with retropulsion, moderate bilateral hydronephrosis and significantly distended urinary bladder. Per son/director economic, has not had any recent falls at home and no falls here in- house. Cook placed and 2 L of urine output noted. Due to medical condition, unable to perform formal neurological exam. ? Transfer process initiated for neurosurgery services ? MRI without contrast of thoracic spine ordered ? Cook placed #New onset seizure likely secondary to bibasilar pneumonia Presents with seizure-like activity as described by son with no previous episodes noted. Likely secondary to pneumonia seen on CXR but could also be medication-induced. Passed speech swallow evaluation and placed on dysphagia 2 diet. EEG obscured by significant difficulties due to excessive noncephalic electrical artifact and compromise interpretability. ? Lorazepam 2 mg as needed for seizure activity ? Aspiration precautions ? Will hold on neurology consult and antiepileptics at this time as likely due to pneumonia #Bibasilar pneumonia Per son, patient has been coughing for the last few days but no fever or chills noted. No leukocytosis but delta noted from 4.3 to 8.2. Procal negative. On Zosyn from 02/21-11/26 given history of ESBL E. coli bacteremia and UTI resistant to cefepime, discontinued by infectious disease as she has had more than 7 days of antibiotics. ? Infectious disease consulted, appreciate recommendations ? Urine cultures negative ? Blood cultures NGTD #HCV Hepatitis C antibody reactive, US abdomen showed mild hepatomegaly. LFTs within normal limits. ? Infectious disease consulted, appreciate recommendations #History of ? Alzheimer's vs Parkinsons dementia #History of paranoid schizophrenia ? Quetiapine 200 mg p.o. twice daily ? Lorazepam 0.5 mg p.o. 3 times daily as needed for anxiety ? Benztropine 1 mg p.o. at bedtime Hospital management: Disposition: pending transfer for acute T12 compression fracture Fluids: none Diet: dysphagia 2 diet Lines: PIV DVT prophylaxis: heparin SC BID GI prophylaxis: pantoprazole 40 mg IV CODE STATUS: full code ----- Plan discussed with attending physician Dr. De Guzman and senior resident physician Dr. Sharon Urbina MD PGY-1 Internal Medicine Attending Provider Attestation/Addendum I have discussed and was present for the essential components of the history, physical examination, diagnosis, and treatment plan with the resident. I agree with the patient's care as documented by the resident and amended herein by me. Segundo De Guzman, DO. Patient seen and evaluated this AM. Vital signs stable, patient afebrile overnight, Patient on 4 L NC time of bedside visit this morning however I was able to reduced to 2 L maintaining SpO2 of 94%. Significant labs include a stable hemoglobin 11, sodium 146 and potassium 3.1 which has been repleted. Infectious disease saw the patient yesterday I am not exactly sure why as we did not consult them however they did DC antibiotics at that time. Hepatitis C antibody which was reactive, liver enzymes completely normal, we did order a liver ultrasound which demonstrated mild hepatomegaly and moderate bilateral hydronephrosis. CT abdomen and pelvis without contrast was ordered to evaluate for bilateral hydronephrosis which did demonstrate a distended urinary bladder, a Cook catheter has been placed however another incidental finding which is concerning is an acute appearing moderately severe compression fracture T12 with retropulsion posterior superior margin of this vertebral body 5 mm. Unclear how the patient obtain this fracture, I did reach out to the patient's son who denies any fall or accident. The patient does not appear to be in any distress or pain hence considering we do not have neurosurgery at [facility], I will reach out to the transfer nurse for possible transfer and evaluation of this fracture and further recommendations. MRI has also been ordered, the patient's urinary retention may be secondary to neurological problem secondary to the fracture. I did let the patient's son Darshan know of the plan going forward. Although this document has been carefully reviewed, there may still be some phonetic and other typographical errors. These errors are purely grammatical due to imperfections in the software program and should not be construed in any way to compromise the substance of the patient's medical care during this visit.
[2025-02-24 11:59] VITALS: BP 142/75; PULSE 78; RESP 19; TEMP 36.5; O2SAT 95
--- NOTE | 2025-02-24 12:43 | XR_ITS ---
Examination: CT abdomen and pelvis without contrast. Coronal 3-D reconstructions. Sagittal 2-D reconstructions. Date and time of exam:February 24, 2025 1415 hours INDICATIONS: Abdomen sonogram February 23, 2025 moderate bilateral hydronephrosis CTDI: vol (mGy): 12.5 DLP: (mGycm): 730 Technique: Axial images of the abdomen have been obtained, 3 mm slice thickness Intravenous contrast material has not been administered. Low dose protocols were performed. One or more of the following dose reduction techniques were used; automated exposure control, adjustment of the mA and/or KV according to patient size, use of iterative reconstruction technique. Findings: Mild enlargement cardiac contour Trace pericardial effusion Minimal bilateral pleural disease Significant pneumonia left base No focal liver or splenic lesions No pancreatic mass Moderate bilateral hydronephrosis No renal or ureteral calculi No pericecal inflammatory change Distended urinary bladder Retroverted uterus Severe osteopenia Acute appearing moderately severe compression fracture T12, reduction in height 50% IMPRESSION: Moderate bilateral hydronephrosis, which may be at least partly due to very distended urinary bladder, consider urinary Cook catheter placement Acute appearing moderately severe compression fracture T12 with retropulsion posterior superior margin of this vertebral body 5 mm
[2025-02-24] MEDS: LACTULOSE SYRUP 20 GM/30 ML UDC PO (13:16)
[2025-02-24] MEDS: LORazepam 2 MG/ML VIAL 1 MG IVP (13:54)
--- NOTE | 2025-02-24 13:57 | PC.SS ---
SS follow up note; SS submitted appeal request through [employer]. Case control ID#[id number]. File Successfully uploaded.
--- NOTE | 2025-02-24 15:25 | PC.CC ---
Addendum entered by Sami Butts RN 02/24/25 19:06: receivec call from Maikel OSWALD - Dr. Gonzalez neurosurgeon rec: MRI to be completed before further follow up.? Addendum entered by Sami Butts RN 02/24/25 19:01: Late entry 1724: received call from Essie with [facility] requesting to verify insurance. FS does not specify medicare A or B. called our ED registration, they confirmed it is medicare. 1857: I called [facility], spoke to Maikel. Informed him pt's insurance is straight medicare per our ED registration. He stated he will present the case. Addendum entered by Sami Butts RN 02/24/25 17:45: received call from Storm MCLAUGHLIN, requested to speak to Dr. Urbina. Conference call connected. Peer to peer between Dr. Urbina and Dr. Phillips. Per Dr. Phillips recs: Mri is needed. If MRI is positive for compression, the team needs to speak to the son to pursue surgical intervention. Per Carlitos, we will wait for MRI results and the team will inform us on how to proceed with the transfer. Addendum entered by Sami Butts RN 02/24/25 17:18: imaging pushed through [facility] to [facility] Addendum entered by Sami Butts RN 02/24/25 17:14: clinical sent to [facility] TC Addendum entered by Sami Butts RN 02/24/25 17:09: called [facility] OSWAL[facility], spoke to Storm. She stated she will review and call me back. Addendum entered by Sami Butts RN 02/24/25 17:01: called [facility], spoke to Essie. She stated she will have to speak to the [place] sup to check for capacity. She stated she will call me back. Original Note: 1644: clinical sent to [facility]. 1525:received call from Dr. De Guzman to transfer to [facility] for neuro sx eval for Acute appearing mod severe compression fx T12.
[2025-02-24 16:00] VITALS: BP 120/100; PULSE 81; RESP 19; TEMP 36.7; O2SAT 96
--- NOTE | 2025-02-24 16:15 | PC.NURSE ---
Inserted means catheter and got 2000 mL right away. clamped tubing to prevent bladder spasms. will reassess in 30 minutes. Pt tolerated insertion well.
[2025-02-24] MEDS: MORPHINE SULF INJ 10 MG/ML VIAL 2 MG IVP (17:08)
[2025-02-24 20:00] VITALS: BP 154/111; PULSE 77; RESP 19; TEMP 36.5; O2SAT 96
[2025-02-24] MEDS: BENZTROPINE 0.5 MG TABLET 1 MG PO (20:46)
[2025-02-25] VITALS: BP 150/89; PULSE 70; RESP 19; TEMP 36.3; O2SAT 94
[2025-02-25 04:00] VITALS: BP 146/89; PULSE 73; RESP 19; TEMP 36.4; O2SAT 95
[2025-02-25 05:43] LABS: Basophils # (Auto) 0.1 Thou/mm3 (0.0-0.2); Basophils % (Auto) 1 % (0-2.5); Eosinophils # (Auto) 0.2 Thou/mm3 (0.0-0.5); Eosinophils % (Auto) 3 % (0-10); Hematocrit 34.5 % (36.0-46.0); Hemoglobin 11.4 g/dL (12.0-16.0); Immature Granulocytes % (Auto) 0 % (0-0); Immature Granulocytes Auto 0.02 Thou/mm3 (0.00-0.00); Lymphocytes % (Auto) 15 % (10-50); Mean Corpuscular Hemoglobin 29.1 pg (25.0-35.0); Mean Corpuscular Volume 88 fL (80-100); Monocytes # (Auto) 0.8 Thou/mm3 (0.0-0.8); Monocytes % (Auto) 13 % (0-12); Neutrophils # (Auto) 4.3 Thou/mm3 (1.8-7.7); Neutrophils % (Auto) 67 % (37-80); Nucleated Red Blood Cell % 0 /100 WBC (0); Platelet Count 224 Thou/mm3 (140-440); RDW Standard Deviation 47.9 fL (36.4-46.3); Red Blood Count 3.92 Miln/mm3 (4.00-5.20); White Blood Count 6.3 Thou/mm3 (3.6-11.0)
[2025-02-25 06:03] LABS: Anion Gap 10 (7-16); BUN/Creatinine Ratio 10 Ratio (12-20); Blood Urea Nitrogen 8 mg/dL (9-23); Calcium 9.2 mg/dL (8.3-10.6); Carbon Dioxide 29.7 mMol/L (20.0-31.0); Chloride 104 mMol/L (98-107); Creatinine (Component) 0.8 mg/dL (0.6-1.3); Estimated Creatinine Clearance 78.9 mL/min (>60); Glucose 116 mg/dL (74-106); Magnesium 1.8 mg/dL (1.6-2.6); Osmolality,Calculated 286 (275-295); Phosphorous 2.9 mg/dL (2.4-5.1); Potassium 3.6 mMol/L (3.4-5.1); Sodium 144 mMol/L (136-145); eGFR > 60 See Note
[2025-02-25 07:18] VITALS: BP 148/83; PULSE 104; PULSE 94; RESP 18; TEMP 36.5; O2SAT 94
[2025-02-25] MEDS: QUEtiapine FUMARATE 100 MG TABLET 200 MG PO ×2 (08:53→20:26)
[2025-02-25] MEDS: POLYETHYLENE GLYCOL 17 GM PACKET PO (08:53)
[2025-02-25] MEDS: SENNA TABLET 1 TAB PO (08:54)
[2025-02-25] MEDS: HEPARIN SOD INJ 5000 UNIT/ML VIAL SC ×2 (08:54→20:30)
--- NOTE | 2025-02-25 09:14 | PC.SS ---
Addendum entered by Essie Kay 02/25/25 11:04: SS follow up note; SS was contacted by [facility] and spoke to Peg and informing SS that case was closed. SS will follow stand by for further needs. Original Note: SS follow up note; SS submitted Letter to [facility] and contacted via phone to inform them that SS faxed letter. [facility] [employer] informed SS that once they receive the letter they will contact SS.
--- NOTE | 2025-02-25 11:02 | PC.CM ---
Addendum entered by Cheryl Crowley RN 02/25/25 18:32: I received a call from Maikel at [facility]. I let him know patient was not able to complete the MRI study today. I let him know Dr. Urbina will re-evaluate patient tomorrow to see if they can do the MRI. Transfer on hold until tomorrow. Addendum entered by Cheryl Crowley RN 02/25/25 17:48: I spoke to Dr. Urbina and he was made aware patient was unable to complete the MRI study. I was told by charge nurse that patient would not be still even after sedation. Dr. Urbina states transfer request us on hold at this time and they will re-evaluate patient again tomorrow. Addendum entered by Cheryl Crowley RN 02/25/25 13:47: [facility] in [place] called to follow up on transfer requests. I let them know we are pending a MRI to see if patient needs transfer or not. I let them know I will get back to them once we have the MRI results. Original Note: I followed up with Dr. Urbina to follow up on transfer. He states we are pending an MRI to see if patient needs to be transferred out. He states the MRI has been ordered. I will follow up after the MRI has been competed.
--- NOTE | 2025-02-25 11:03 | ESPR_ITS ---
Documentation for date of: 02/25/25 Subjective Subjective Interval history: Patient was seen and examined at bedside this morning. No acute overnight events. Patient still pending MRI. Patient's hemoglobin has been stable and ABCs are stable for now. Patient has not had any bowel movement for the past few days. Patient was resting peacefully in bed during examination. Exam Vital Signs Temp Pulse Resp BP Pulse Ox O2 Del Method O2 Flow Rate 97.7 F 104 H 18 148/83 H 94 L Room Air 4 02/25/25 07:18 02/25/25 07:18 02/25/25 07:18 02/25/25 07:18 02/25/25 07:18 02/25/25 07:18 02/24/25 04:00 Narrative Exam General: Alert and awake, no acute distress Eyes: PERRL, EOMI. Anicteric, vision grossly intact. Ears: No visible ear discharge, Hearing grossly intact. Nose: No nasal discharge. Mouth/Throat: Moist mucous membranes, no redness, no lesions. Neck: Neck supple, non-tender, no cervical lymphadenopathy. Lungs: Clear ODELL to auscultation and percussion, No accessory muscle use. Cardio: Normal S1/S2, regular rhythm, no murmurs, no JVD Abdomen: Soft, non-tender, no palpable masses, peristalsis present but hypoactive, no guarding or rebound. Extremities: Symmetrical, no significant deformities, no peripheral edema , non-tender, peripheral pulses presents. Skin: No rashes, no lesions, warm to touch. Neuro: Limited given patient's current condition was moving all extremities. Objective Labs 02/26/25 05:04 02/26/25 05:04 Labs: Laboratory Results - last 24 hr 02/25/25 04:58 WBC 6.3 RBC 3.92 L Hgb 11.4 L Hct 34.5 L MCV 88 MCH 29.1 MCHC 33.0 RDW Std Deviation 47.9 H Plt Count 224 D Neut % (Auto) 67 Lymph % (Auto) 15 Carlton % (Auto) 13 H Eos % (Auto) 3 Baso % (Auto) 1 Neut # (Auto) 4.3 Lymph # (Auto) 1.0 Carlton # (Auto) 0.8 Eos # (Auto) 0.2 Baso # (Auto) 0.1 Immature Gran # (Auto) 0.02 H Absolute Nucleated RBC 0.00 Immature Gran % 0 Nucleated RBC % 0 Sodium 144 Potassium 3.6 D Chloride 104 Carbon Dioxide 29.7 Anion Gap 10 BUN 8 L Creatinine 0.8 Estim Creat Clear Calc 78.9 eGFR > 60 BUN/Creatinine Ratio 10 L Glucose 116 H Calculated Osmolality 286 Calcium 9.2 Phosphorus 2.9 Magnesium 1.8 ABG Interpretation ABG results: 02/21/25 10:33 ABG pH 7.47 H ABG pCO2 37 ABG pO2 72 L ABG HCO3 27 H ABG O2 Saturation 97 ABG Base Excess 3 Quality Measures Quality Measures none Advance care planning discussed with:: patient Assessment & Plan Assessment Current Active Medications: Generic Name Dose Route Start Last Admin Trade Name Freq PRN Reason Stop Dose Admin Acetaminophen 650 mg 02/21/25 13:02 Acetaminophen 325 Mg Tablet PO 03/23/25 13:01 Q6H PRN PAIN 1-3 OR FEVER > 100.4 Benztropine Mesylate 1 mg 02/21/25 21:00 02/24/25 20:46 Benztropine 0.5 Mg Tablet PO 03/23/25 20:59 1 mg HS [place]IE Administration Heparin Sodium (Porcine) 5,000 unit 02/21/25 21:00 02/25/25 08:54 Heparin Sod Inj 5000 Unit/Ml Vial SC 03/07/25 20:59 5,000 unit BID [place] Administration Lactulose 20 gm 02/25/25 14:00 Lactulose Syrup 20 Gm/30 Ml Udc PO 03/27/25 13:59 TID V[place]IE Protocol Levetiracetam 500 mg 02/25/25 11:00 Levetiracetam 250 Mg Tablet PO 03/27/25 10:59 BID V[place]IE Lorazepam 0.5 mg 02/21/25 13:07 02/24/25 10:41 Lorazepam 0.5 Mg Tablet PO 02/26/25 13:06 0.5 mg Q8HR PRN Administration ANXIETY Lorazepam 2 mg 02/21/25 13:12 Lorazepam 2 Mg/Ml Vial IVP X1 PRN seizure Morphine Sulfate 2 mg 02/24/25 15:36 02/24/25 17:08 Morphine Sulf Inj 10 Mg/Ml Vial IVP 03/01/25 15:35 2 mg Q4HR PRN Administration Pain severe, 6-10 Ondansetron HCl 4 mg 02/21/25 13:03 Ondansetron Inj 2 Mg/Ml Inj 2 Ml IV 03/23/25 13:02 Q6H PRN NAUSEA OR VOMITING Protocol Polyethylene Glycol 17 gm 02/24/25 05:30 02/25/25 08:53 Polyethylene Glycol 17 Gm Packet PO 03/26/25 05:29 17 gm QDAY [place] Administration Quetiapine Fumarate 200 mg 02/21/25 21:00 02/25/25 08:53 Quetiapine Fumarate 100 Mg Tablet PO 03/23/25 20:59 200 mg BID [place] Administration Sennosides 1 tab 02/24/25 05:30 02/25/25 08:54 Senna Tablet PO 03/26/25 05:29 1 tab QDAY [place] Administration Protocol Plan 69-year-old female with past medical history of dementia secondary to Alzheimer's disease, paranoid, depression, and disfluent at baseline is admitted to the hospital on 02/21/2025 due to new onset seizures likely secondary to infectious etiology. #Acute T12 compression fracture CT A/P: acute appearing moderately severe T12 compression fracture with retropulsion, moderate bilateral hydronephrosis and significantly distended urinary bladder. Per son/food safety technician, has not had any recent falls at home and no falls here in- house. Due to medical condition, unable to perform formal neurological exam. Plan: ?MRI without contrast of thoracic spine pending ?Patient may require transfer to dietary care if MRI does show spinal cord compression #Hydronephrosis Retroperitoneum ultrasound that showed bilateral hydronephrosis Abdominal ultrasound also showed bilateral hydronephrosis Abdomen/pelvis CT that showed moderate bilateral hydronephrosis with distended urinary bladder. Cook placed and 2 L of urine output noted. Plan: ? Cook placed #New onset seizure Presents with seizure-like activity as described by son with no previous episodes noted. Likely secondary to pneumonia seen on CXR but could also be medication-induced. Passed speech swallow evaluation and placed on dysphagia 2 diet. EEG obscured by significant difficulties due to excessive noncephalic electrical artifact and compromise interpretability. Plan: ? Start Keppra 500 twice daily ? Lorazepam 2 mg as needed for seizure activity ? Aspiration precautions #Bibasilar pneumonia Per son, patient has been coughing for the last few days but no fever or chills noted. No leukocytosis but delta noted from 4.3 to 8.2. Procal negative. On Zosyn from 02/21-11/26 given history of ESBL E. coli bacteremia and UTI resistant to cefepime, discontinued by infectious disease as she has had more than 7 days of antibiotics. Plan: ? Infectious disease consulted, appreciate recommendations ? Urine cultures negative ? Blood cultures NGTD #HCV Hepatitis C antibody reactive, US abdomen showed mild hepatomegaly. LFTs within normal limits. ? Infectious disease consulted, appreciate recommendations #History of dementia #History of paranoid schizophrenia ? Quetiapine 200 mg p.o. twice daily ? Lorazepam 0.5 mg p.o. 3 times daily as needed for anxiety ? Benztropine 1 mg p.o. at bedtime #Constipation Patient has not had a bowel movement since for the past 5 days when she came into the hospital Plan: ? Enema mineral oil x 1 ? Lactulose 20 mg 3 times daily Disposition: Pending MRI Diet: dysphagia 2 GI prophylaxis: not indicated DVT prophylaxis: heparin subcu Code: Full code Case disclosed with Attending Dr. Clare Nassar PGY1 Attending Provider Attestation/Addendum I reviewed labs, imaging, EKG, home medications and prior available records. Face to face evaluation was performed by me. I have personally examined the patient and discussed assessment and plan with the IM team. I reviewed the resident note and agree with the plan with exceptions as below. Seizure History of dementia T1 compression fracture of the spine Hepatitis C Constipation Ordered spine MRI Pain management as needed Started Keppra Seizure precautions Gave enema for the constipation Continue quetiapine at 200 mg twice daily Ativan as needed for breakthrough seizures
[2025-02-25 11:18] VITALS: BP 143/85; PULSE 104; RESP 20; TEMP 36.8; O2SAT 94
[2025-02-25] MEDS: levETIRAcetam 250 MG TABLET 500 MG PO ×2 (11:21→20:26)
--- NOTE | 2025-02-25 11:27 | PC.SS ---
SS follow up note; Patient is pending an MRI requested after CT findings. Patient will discharge home once medically cleared.
[2025-02-25] MEDS: LORazepam 0.5 MG TABLET PO ×2 (12:10→20:32)
--- NOTE | 2025-02-25 13:48 | PD.IDPROG ---
Subjective Subjective Interval history: pt has finished rx for bacteriuria remains asymptomatic and improved. Exam Vital Signs Temp Pulse Resp BP Pulse Ox O2 Del Method O2 Flow Rate 98.3 F 104 H 20 143/85 H 94 L Room Air 4 02/25/25 11:18 02/25/25 11:18 02/25/25 11:18 02/25/25 11:18 02/25/25 11:18 02/25/25 11:18 02/24/25 04:00 Narrative Exam limited eval. overall progress noted. was to go home but that has been delayed Objective - Internal Medicine Labs 02/25/25 04:58 02/25/25 04:58 Labs: Laboratory Results - last 24 hr 02/25/25 04:58 WBC 6.3 RBC 3.92 L Hgb 11.4 L Hct 34.5 L MCV 88 MCH 29.1 MCHC 33.0 RDW Std Deviation 47.9 H Plt Count 224 D Neut % (Auto) 67 Lymph % (Auto) 15 [place] % (Auto) 13 H Eos % (Auto) 3 Baso % (Auto) 1 Neut # (Auto) 4.3 Lymph # (Auto) 1.0 [place] # (Auto) 0.8 Eos # (Auto) 0.2 Baso # (Auto) 0.1 Immature Gran # (Auto) 0.02 H Absolute Nucleated RBC 0.00 Immature Gran % 0 Nucleated RBC % 0 Sodium 144 Potassium 3.6 D Chloride 104 Carbon Dioxide 29.7 Anion Gap 10 BUN 8 L Creatinine 0.8 Estim Creat Clear Calc 78.9 eGFR > 60 BUN/Creatinine Ratio 10 L Glucose 116 H Calculated Osmolality 286 Calcium 9.2 Phosphorus 2.9 Magnesium 1.8 ABG Interpretation ABG results: 02/21/25 10:33 ABG pH 7.47 H ABG pCO2 37 ABG pO2 72 L ABG HCO3 27 H ABG O2 Saturation 97 ABG Base Excess 3 Assessment & Plan A&P Narrative stated sz. souds like it possibly from quinolone rx for urine with pos bc no overt need for more abx at this point in time.ua benign. so fac bc neg at almost 48h will see again prn Time Spent With Patient Time: Total time spent is greater than 50% in coordination of care (as documented) at patient's floor/unit and/or counseling patient:
[2025-02-25] MEDS: LACTULOSE SYRUP 20 GM/30 ML UDC PO ×2 (14:39→20:30)
[2025-02-25] MEDS: MORPHINE SULF INJ 10 MG/ML VIAL 2 MG IVP (14:39)
[2025-02-25 16:00] VITALS: BP 151/99; PULSE 87; RESP 20; TEMP 36.6; O2SAT 95
--- NOTE | 2025-02-25 17:12 | PC.NURSE ---
pt was unable to complete MRI today, called Dr Delaney to let him know and said he will put orders for pt. Called MRI and spoke to Katie to see if we can try again and will not be able to until tomorrow. was made aware.
[2025-02-25 20:00] VITALS: BP 138/98; PULSE 76; RESP 20; TEMP 36.1; O2SAT 93
[2025-02-25] MEDS: BENZTROPINE 0.5 MG TABLET 1 MG PO (20:26)
[2025-02-26] VITALS: BP 141/71; PULSE 80; RESP 17; TEMP 36.3; O2SAT 93
[2025-02-26 04:00] VITALS: BP 134/87; PULSE 77; RESP 16; TEMP 36.6; O2SAT 92
[2025-02-26] MEDS: LORazepam 0.5 MG TABLET PO (05:28)
[2025-02-26] MEDS: LACTULOSE SYRUP 20 GM/30 ML UDC PO ×2 (05:28→21:45)
[2025-02-26 06:19] LABS: Basophils # (Auto) 0.1 Thou/mm3 (0.0-0.2); Basophils % (Auto) 1 % (0-2.5); Eosinophils # (Auto) 0.2 Thou/mm3 (0.0-0.5); Eosinophils % (Auto) 2 % (0-10); Hematocrit 38.6 % (36.0-46.0); Hemoglobin 12.6 g/dL (12.0-16.0); Immature Granulocytes % (Auto) 0 % (0-0); Immature Granulocytes Auto 0.03 Thou/mm3 (0.00-0.00); Lymphocytes # (Auto) 1.6 Thou/mm3 (1.0-4.8); Lymphocytes % (Auto) 19 % (10-50); Mean Corpuscular HGB Conc 32.6 g/dl (31.0-37.0); Mean Corpuscular Hemoglobin 28.8 pg (25.0-35.0); Mean Corpuscular Volume 88 fL (80-100); Monocytes % (Auto) 12 % (0-12); Neutrophils # (Auto) 5.3 Thou/mm3 (1.8-7.7); Neutrophils % (Auto) 65 % (37-80); Nucleated Red Blood Cell % 0 /100 WBC (0); Platelet Count 339 Thou/mm3 (140-440); RDW Standard Deviation 48.4 fL (36.4-46.3); Red Blood Count 4.37 Miln/mm3 (4.00-5.20)
[2025-02-26 06:28] LABS: Anion Gap 11 (7-16); BUN/Creatinine Ratio 18 Ratio (12-20); Blood Urea Nitrogen 14 mg/dL (9-23); Calcium 9.2 mg/dL (8.3-10.6); Carbon Dioxide 29.3 mMol/L (20.0-31.0); Chloride 100 mMol/L (98-107); Creatinine (Component) 0.8 mg/dL (0.6-1.3); Estimated Creatinine Clearance 78.9 mL/min (>60); Glucose 122 mg/dL (74-106); Magnesium 1.8 mg/dL (1.6-2.6); Osmolality,Calculated 280 (275-295); Potassium 3.4 mMol/L (3.4-5.1); Sodium 140 mMol/L (136-145); eGFR > 60 See Note
[2025-02-26 08:00] VITALS: BP 161/87; PULSE 67; RESP 18; TEMP 36.5; O2SAT 93
--- NOTE | 2025-02-26 09:33 | PD.RESPRO ---
Documentation for date of: 02/26/25 Subjective Subjective Interval history: Patient was seen and examined at bedside this morning. No acute overnight events. Patient was unable to get MRI done yesterday as she could not tolerate the procedure due to agitation. Will try again today to get MRI. No other complaints at this time. Exam Vital Signs Temp Pulse Resp BP Pulse Ox O2 Del Method O2 Flow Rate 97.7 F 67 18 161/87 H 93 L Room Air 4 02/26/25 08:00 02/26/25 08:00 02/26/25 08:00 02/26/25 08:00 02/26/25 08:00 02/26/25 08:00 02/24/25 04:00 Narrative Exam General: Alert and awake, no acute distress Eyes: PERRL, EOMI. Anicteric, vision grossly intact. Ears: No visible ear discharge, Hearing grossly intact. Nose: No nasal discharge. Mouth/Throat: Moist mucous membranes, no redness, no lesions. Neck: Neck supple, non-tender, no cervical lymphadenopathy. Lungs: Clear ODELL to auscultation and percussion, No accessory muscle use. Cardio: Normal S1/S2, regular rhythm, no murmurs, no JVD Abdomen: Soft, non-tender, no palpable masses, peristalsis present but hypoactive, no guarding or rebound. Extremities: Symmetrical, no significant deformities, no peripheral edema , non-tender, peripheral pulses presents. Skin: No rashes, no lesions, warm to touch. Neuro: Limited given patient's current condition was moving all extremities. Objective Labs 02/27/25 04:43 02/27/25 04:43 Labs: Laboratory Results - last 24 hr 02/26/25 05:04 WBC 8.0 RBC 4.37 Hgb 12.6 Hct 38.6 MCV 88 MCH 28.8 MCHC 32.6 RDW Std Deviation 48.4 H Plt Count 339 D Neut % (Auto) 65 Lymph % (Auto) 19 [place] % (Auto) 12 Eos % (Auto) 2 Baso % (Auto) 1 Neut # (Auto) 5.3 Lymph # (Auto) 1.6 [place] # (Auto) 1.0 H Eos # (Auto) 0.2 Baso # (Auto) 0.1 Immature Gran # (Auto) 0.03 H Absolute Nucleated RBC 0.00 Immature Gran % 0 Nucleated RBC % 0 Sodium 140 Potassium 3.4 Chloride 100 Carbon Dioxide 29.3 Anion Gap 11 BUN 14 Creatinine 0.8 Estim Creat Clear Calc 78.9 eGFR > 60 BUN/Creatinine Ratio 18 Glucose 122 H Calculated Osmolality 280 Calcium 9.2 Phosphorus 3.0 Magnesium 1.8 ABG Interpretation ABG results: 02/21/25 10:33 ABG pH 7.47 H ABG pCO2 37 ABG pO2 72 L ABG HCO3 27 H ABG O2 Saturation 97 ABG Base Excess 3 Quality Measures Quality Measures none Advance care planning discussed with:: patient Assessment & Plan Assessment Current Active Medications: Generic Name Dose Route Start Last Admin Trade Name Freq PRN Reason Stop Dose Admin Acetaminophen 650 mg 02/21/25 13:02 Acetaminophen 325 Mg Tablet PO 03/23/25 13:01 Q6H PRN PAIN 1-3 OR FEVER > 100.4 Benztropine Mesylate 1 mg 02/21/25 21:00 02/25/25 20:26 Benztropine 0.5 Mg Tablet PO 03/23/25 20:59 1 mg HS [place] Administration Haloperidol Lactate 2.5 mg 02/26/25 07:41 Haloperidol Lact Inj 5 Mg/Ml Vial IV 02/27/25 07:40 X1 PRN SEE COMMENTS Heparin Sodium (Porcine) 5,000 unit 02/21/25 21:00 02/25/25 20:30 Heparin Sod Inj 5000 Unit/Ml Vial SC 03/07/25 20:59 5,000 unit BID [place] Administration Lactulose 20 gm 02/25/25 14:00 02/26/25 05:28 Lactulose Syrup 20 Gm/30 Ml Udc PO 03/27/25 13:59 20 gm TID [place] Administration Protocol Levetiracetam 500 mg 02/25/25 11:00 02/25/25 20:26 Levetiracetam 250 Mg Tablet PO 03/27/25 10:59 500 mg BID [place] Administration Lorazepam 0.5 mg 02/21/25 13:07 02/26/25 05:28 Lorazepam 0.5 Mg Tablet PO 02/26/25 13:06 0.5 mg Q8HR PRN Administration ANXIETY Lorazepam 2 mg 02/21/25 13:12 Lorazepam 2 Mg/Ml Vial IVP X1 PRN seizure Morphine Sulfate 2 mg 02/24/25 15:36 02/25/25 14:39 Morphine Sulf Inj 10 Mg/Ml Vial IVP 03/01/25 15:35 2 mg Q4HR PRN Administration Pain severe, 6-10 Ondansetron HCl 4 mg 02/21/25 13:03 Ondansetron Inj 2 Mg/Ml Inj 2 Ml IV 03/23/25 13:02 Q6H PRN NAUSEA OR VOMITING Protocol Polyethylene Glycol 17 gm 02/24/25 05:30 02/25/25 08:53 Polyethylene Glycol 17 Gm Packet PO 03/26/25 05:29 17 gm QDAY [place] Administration Quetiapine Fumarate 200 mg 02/21/25 21:00 02/25/25 20:26 Quetiapine Fumarate 100 Mg Tablet PO 03/23/25 20:59 200 mg BID [place] Administration Sennosides 1 tab 02/24/25 05:30 02/25/25 08:54 Senna Tablet PO 03/26/25 05:29 1 tab QDAY [place] Administration Protocol Plan 69-year-old female with past medical history of dementia secondary to Alzheimer's disease, paranoid, depression, and disfluent at baseline is admitted to the hospital on 02/21/2025 due to new onset seizures likely secondary to infectious etiology. #Acute T12 compression fracture CT A/P: acute appearing moderately severe T12 compression fracture with retropulsion, moderate bilateral hydronephrosis and significantly distended urinary bladder. Per son/plastic surgery manager, has not had any recent falls at home and no falls here in-house. Due to medical condition, unable to perform formal neurological exam. Plan: ?MRI without contrast of thoracic spine pending ?Patient may require transfer to dietary care if MRI does show spinal cord compression #Hydronephrosis Retroperitoneum ultrasound that showed bilateral hydronephrosis Abdominal ultrasound also showed bilateral hydronephrosis Abdomen/pelvis CT that showed moderate bilateral hydronephrosis with distended urinary bladder. Cook placed and 2 L of urine output noted. Good UO Plan: ? will continue to monitor #New onset seizure Presents with seizure-like activity as described by son with no previous episodes noted. Likely secondary to pneumonia seen on CXR but could also be medication-induced. Passed speech swallow evaluation and placed on dysphagia 2 diet. EEG obscured by significant difficulties due to excessive noncephalic electrical artifact and compromise interpretability. Plan: ? Continue Keppra 500 twice daily ? Lorazepam 2 mg as needed for seizure activity ? Aspiration precautions #Bibasilar pneumonia Per son, patient has been coughing for the last few days but no fever or chills noted. No leukocytosis but delta noted from 4.3 to 8.2. Procal negative. On Zosyn from 02/21-11/26 given history of ESBL E. coli bacteremia and UTI resistant to cefepime, discontinued by infectious disease as she has had more than 7 days of antibiotics. Plan: ? Infectious disease consulted, appreciate recommendations ? Urine cultures negative ? Blood cultures NGTD #HCV Hepatitis C antibody reactive, US abdomen showed mild hepatomegaly. LFTs within normal limits. ? Infectious disease consulted, appreciate recommendations #History of dementia #History of paranoid schizophrenia ? Quetiapine 200 mg p.o. twice daily ? Lorazepam 0.5 mg p.o. 3 times daily as needed for anxiety ? Benztropine 1 mg p.o. at bedtime #Constipation, resolved Disposition: Pending MRI Diet: dysphagia 2 GI prophylaxis: not indicated DVT prophylaxis: heparin subcu Code: Full code Case disclosed with Attending Dr. Clare Nassar PGY1 Disclaimer: This note was dictated by speech recognition and even though it was carefully revised there may still be minor errors in counter waiter due to voice recognition software. Attending Provider Attestation/Addendum I reviewed labs, imaging, EKG, home medications and prior available records. Face to face evaluation was performed by me. I have personally examined the patient and discussed assessment and plan with the IM team. I reviewed the resident note and agree with the plan with exceptions as below. Seizure History of dementia Hyperactive agitation T1 compression fracture of the spine Hepatitis C Constipation Gave IV haloperidol for agitation Ordered spine MRI Pain management as needed Started Keppra Seizure precautions Gave enema for the constipation Continue quetiapine at 200 mg twice daily Ativan as needed for breakthrough seizures
[2025-02-26] MEDS: QUEtiapine FUMARATE 100 MG TABLET 200 MG PO ×2 (10:02→21:45)
[2025-02-26] MEDS: POLYETHYLENE GLYCOL 17 GM PACKET PO (10:03)
[2025-02-26] MEDS: HEPARIN SOD INJ 5000 UNIT/ML VIAL SC ×2 (10:03→21:45)
[2025-02-26] MEDS: SENNA TABLET 1 TAB PO (10:03)
[2025-02-26] MEDS: levETIRAcetam 250 MG TABLET 500 MG PO ×2 (10:03→21:45)
--- NOTE | 2025-02-26 10:50 | PC.CC ---
[address] and spoke to Dr. Delaney regarding update on transfer. Dr. Delaney stated yesterday pt was unable to tolerate the MRI. He has orders some medication to help the pt before MRI. Once MRI is done he will give me a call if pt needs transfer or not.
[2025-02-26 12:00] VITALS: BP 131/74; PULSE 84; RESP 18; TEMP 36.5; O2SAT 93
[2025-02-26] MEDS: HALOPERIDOL LACT INJ 5 MG/ML VIAL 2.5 MG IV (13:01)
[2025-02-26 16:00] VITALS: BP 132/83; PULSE 77; RESP 18; TEMP 36.2; O2SAT 95
[2025-02-26] MEDS: HALOPERIDOL LACT INJ 5 MG/ML VIAL IV (17:39)
[2025-02-26] MEDS: LORazepam 2 MG/ML VIAL 1 MG IVP (17:40)
[2025-02-26 20:00] VITALS: BP 126/67; PULSE 63; RESP 20; TEMP 36.2; O2SAT 94
[2025-02-26] MEDS: BENZTROPINE 0.5 MG TABLET 1 MG PO (21:45)
[2025-02-27] VITALS: BP 138/71; PULSE 85; RESP 16; TEMP 36.3; O2SAT 93
--- NOTE | 2025-02-27 | XR_ITS ---
Examination: MRI thoracic spine without contrast. Date and time of exam: February 27, 2025 0914 hours INDICATIONS: Acute moderately severe compression fracture T12 vertebral body on CT abdomen pelvis study February 24, 2025 Technique: Multiple sagittal and axial images of the thoracic spine have been obtained. T1 weighted localizer, sagittal T2 weighted images, TR 30-50, TE 148, T1 weighted sagittal images, TR 650, TE 14, T2-weighted transverse images, TR 6770, TE 142 Findings: Increased signal in severity compressed T12 vertebral body consistent with acute or subacute fracture Retropulsion of the posterior superior margin of this vertebral body 7 mm Remaining vertebral bodies intact Impression: Acute/subacute severe compression fracture T12 vertebral body, reduction in height 60%, retropulsion of the posterior superior margin of this vertebral body 7 mm
[2025-02-27 04:00] VITALS: BP 132/92; PULSE 71; RESP 20; TEMP 36.1; O2SAT 92
[2025-02-27 05:31] LABS: Basophils # (Auto) 0.1 Thou/mm3 (0.0-0.2); Basophils % (Auto) 1 % (0-2.5); Eosinophils # (Auto) 0.2 Thou/mm3 (0.0-0.5); Eosinophils % (Auto) 3 % (0-10); Hematocrit 35.6 % (36.0-46.0); Hemoglobin 11.7 g/dL (12.0-16.0); Immature Granulocytes % (Auto) 0 % (0-0); Immature Granulocytes Auto 0.02 Thou/mm3 (0.00-0.00); Lymphocytes # (Auto) 1.5 Thou/mm3 (1.0-4.8); Lymphocytes % (Auto) 25 % (10-50); Mean Corpuscular HGB Conc 32.9 g/dl (31.0-37.0); Mean Corpuscular Volume 88 fL (80-100); Monocytes # (Auto) 0.7 Thou/mm3 (0.0-0.8); Monocytes % (Auto) 12 % (0-12); Neutrophils # (Auto) 3.7 Thou/mm3 (1.8-7.7); Neutrophils % (Auto) 59 % (37-80); Nucleated Red Blood Cell % 0 /100 WBC (0); Platelet Count 294 Thou/mm3 (140-440); RDW Standard Deviation 48.5 fL (36.4-46.3); Red Blood Count 4.04 Miln/mm3 (4.00-5.20); White Blood Count 6.2 Thou/mm3 (3.6-11.0)
[2025-02-27 05:59] LABS: Anion Gap 11 (7-16); BUN/Creatinine Ratio 18 Ratio (12-20); Blood Urea Nitrogen 14 mg/dL (9-23); Chloride 102 mMol/L (98-107); Creatinine (Component) 0.8 mg/dL (0.6-1.3); Estimated Creatinine Clearance 78.9 mL/min (>60); Glucose 124 mg/dL (74-106); Osmolality,Calculated 280 (275-295); Phosphorous 2.9 mg/dL (2.4-5.1); Potassium 3.7 mMol/L (3.4-5.1); Sodium 140 mMol/L (136-145); eGFR > 60 See Note
[2025-02-27] MEDS: LACTULOSE SYRUP 20 GM/30 ML UDC PO ×2 (06:36→21:32)
[2025-02-27 08:00] VITALS: BP 159/81; PULSE 68; RESP 20; TEMP 36.4; O2SAT 96
[2025-02-27] MEDS: HEPARIN SOD INJ 5000 UNIT/ML VIAL SC ×2 (08:31→21:32)
[2025-02-27] MEDS: HALOPERIDOL LACT INJ 5 MG/ML VIAL 2.5 MG IV (08:45)
--- NOTE | 2025-02-27 09:17 | PC.CM ---
Addendum entered by Cheryl Crowley RN 02/27/25 10:43: I received a call from Dr. Delaney stating patient's transfer has been canceled. I called Carlos and Chris and let them know transfer request has been canceled. Original Note: I spoke to Dr. Sparks and to Dr. Urbina. They stated they are still working on getting an MRI on patient. They have been unsuccessful because patient has been agitated. They are trying to manage patient's agitation with mediation. Transfer on hold at this time until MRI obtained.
[2025-02-27] MEDS: QUEtiapine FUMARATE 100 MG TABLET 200 MG PO ×2 (10:03→21:31)
[2025-02-27] MEDS: levETIRAcetam 250 MG TABLET 500 MG PO ×2 (10:04→21:31)
[2025-02-27] MEDS: SENNA TABLET 1 TAB PO (10:04)
--- NOTE | 2025-02-27 10:53 | CHAP ---
Patient was visited by the Spiritual Care Volunteer who prayed for them. (Volunteer was in the hospital from 09:39-10:53).
--- NOTE | 2025-02-27 11:05 | PC.SS ---
SS follow up note; SS contacted Database ModelerMarii Wood and informed her that Team A was requesting for patient to get back brace. Marii informed SS she would contact [facility]. Patient will return back home when medically cleared.
[2025-02-27 11:15] VITALS: BMI 28.5
--- NOTE | 2025-02-27 11:15 | ESDS_ITS ---
Planned Discharge Date 02/27/25 DS: Providers Provider Date of admission: 02/21/25 13:01 Primary care physician: Katie Cason CNM Admitting Provider: Audie De Guzman DO Attending Provider on Admission: Raza Sparks MD Consults: 02/21/25 13:11 Referral Speech Therapy Routine Comment: Instructions: Seizure-activity, Alzheimer dementia and pneumonia on CXR - please assess for aspiration risk 02/21/25 21:49 Consult Diabetic Routine Comment: Referral [place] Routine Comment: Referral Registered Dietitian Routine Comment: 02/24/25 13:56 Consult to Infectious Diseases Routine Comment: Consulting Provider: Pro Jain Attending Provider on DC: Raza Sparks MD Discharging Provider: Raza Sparks MD DS: Diagnosis Problem List Completed Was Problem List Reviewed/Reconciled?: Yes Hospital Course Hospital Course Hospital course: 69-year-old female with past medical history of dementia secondary to Alzheimer's disease, paranoid, depression, and disfluent at baseline is admitted to the hospital on 02/21/2025 due to new onset seizures likely secondary to infectious etiology. Patient was seen in our ED after she was having seizure-l dav activity at home witnessed by family members. Throughout the hospital stay patient did not have further seizures. She was placed on Zosyn given history of ESBL resistance to cefepime. She remained afebrile and did not have any spikes in WBC either. Infectious disease saw the patient and stated that there was no need for antibiotics at this time. Patient was going to be discharged, but pat nt had a hepatitis C panel that came back positive and a retroperitoneum ultrasound that did show bilateral hydronephrosis therefore patient was not discharged. Patient then underwent abdominal ultrasound which again showed bilateral hydronephrosis therefore abdomen/pelvis CT was ordered and revealed an acute T12 fracture. Given this fracture and the family stated that the patient had not had any recent falls further imaging was required to see if patient had spinal cord compression. Given patient's current condition MRI was very difficult to obtain given that she could not tolerate being in the MRI machine for too long. Patient eventually got the MRI done which showed acute versus subacute T12 fracture, but no spinal cord compression. Patient also had a Cook in place given that the hydronephrosis was found and she was having some urinary retention. Before discharge patient's Cook was discontinued, but patient was not able to urinate and therefore we will send patient with Cook catheter and to follow-up with urology. At the time of discharge patient was stable enough to be discharged home with home health. Discharge plan: Please follow-up with your primary care physician within 1 week after discharge Please follow-up with your primary care physician for ultrasound of the liver for further workup given hep C antibody was reactive. You have been started on Keppra 500mg twice a day. Please Follow-up with your primary care physician concerning your T12 fracture. Please follow-up with urology within 7 days after discharge to follow-up on hydronephrosis and urinary retention. Recommend outpatient follow-up with neurosurgery for T12 fracture. Recommend to follow-up outpatient as well with neurology given that patient had a seizure and will be on Keppra 500 mg twice a day. Please wear thoracic spine brace at all times except when bathing, until you see your primary care physician. Continue taking all home medications as prescribed. Please come back to the ER if symptoms persist or worsen Problem list: #Acute T12 compression fracture #ODELL Hydronephrosis #New onset seizure #Community acquired pneumonia #HCV #History of dementia #History of paranoid schizophrenia #Constipation, resolved Case disclosed with Attending Dr. Clare Nassar PGY1 Disclaimer: This note was dictated by speech recognition and even though it was carefully revised there may still be minor errors in manager assembly due to voice recognition software. Status at Discharge Overall status at discharge: patient is progressing back to baseline Time Spent with Patient Time attestation: Total time spent providing and/or coordinating discharge services:>35 min Time spent: Greater than 30 minutes Exam Vital Signs Temp Pulse Resp BP Pulse Ox O2 Del Method O2 Flow Rate 97.6 F 68 20 159/81 H 96 Room Air 4 02/27/25 08:00 02/27/25 08:00 02/27/25 08:00 02/27/25 08:00 02/27/25 08:00 02/27/25 08:00 02/24/25 04:00 Narrative Exam General: Alert and awake, no acute distress Eyes: PERRL, EOMI. Anicteric, vision grossly intact. Ears: No visible ear discharge, Hearing grossly intact. Nose: No nasal discharge. Mouth/Throat: Moist mucous membranes, no redness, no lesions. Neck: Neck supple, non-tender, no cervical lymphadenopathy. Lungs: Clear ODELL to auscultation and percussion, No accessory muscle use. Cardio: Normal S1/S2, regular rhythm, no murmurs, no JVD Abdomen: Soft, non-tender, no palpable masses, peristalsis present but hypoactive, no guarding or rebound. Extremities: Symmetrical, no significant deformities, no peripheral edema , non-tender, peripheral pulses presents. Skin: No rashes, no lesions, warm to touch. Neuro: Limited given patient's current condition was moving all extremities. Discharge Plan Plan Patient Disposition: Home w/HOSPICE Care Plan Goals: Please follow-up with your primary care physician within 1 week after discharge Please follow-up with your primary care physician for ultrasound of the liver for further workup given hep C antibody was reactive. You have been started on Keppra 500mg twice a day. Please Follow-up with your primary care physician concerning your T12 fracture. Please follow-up with urology within 7 days after discharge to follow-up on hydronephrosis and urinary retention. Recommend outpatient follow-up with neurosurgery for T12 fracture. Recommend to follow-up outpatient as well with neurology given that patient had a seizure and will be on Keppra 500 mg twice a day. Please wear thoracic spine brace at all times except when bathing, until you see your primary care physician. Continue taking all home medications as prescribed. Please come back to the ER if symptoms persist or worsen Prescriptions/Referrals Prescriptions/Med Rec: New levetiracetam 250 mg Tablet 500 mg PO BID 30 Days Qty: 120 0RF Continued lorazepam 0.5 mg tablet 0.5 mg PO TID PRN (Reason: anxiety) Patient Comments: take 1 tablet by mouth three times a day if needed for anxiety bisacodyl [Dulcolax (bisacodyl)] 5 mg tablet,delayed release (DR/EC) 10 mg PO QDAY quetiapine 200 mg tablet 200 mg PO BID Qty: 60 0RF benztropine 1 mg tablet 1 mg PO HS Patient Comments: TAKE ONE TABLET BY MOUTH AT BEDTIME Discontinued levofloxacin 750 mg tablet 750 mg PO QDAY Patient Comments: take 1 tablet by mouth once daily for 4 days. Just had one more to take today. Referrals: [place],Katie Mo, CNM [Primary Care Provider] - Patient/Caregiver Discharge Instructions Other Discharge Activity Instructions:: Please follow-up with your primary care physician within 1 week after discharge Please follow-up with your primary care physician for ultrasound of the liver for further workup given hep C antibody was reactive. You have been started on Keppra 500mg twice a day. Please Follow-up with your primary care physician concerning your T12 fracture. Please follow-up with urology within 7 days after discharge to follow-up on hydronephrosis and urinary retention. Recommend outpatient follow-up with neurosurgery for T12 fracture. Recommend to follow-up outpatient as well with neurology given that patient had a seizure and will be on Keppra 500 mg twice a day. Please wear thoracic spine brace at all times except when bathing, until you see your primary care physician. Continue taking all home medications as prescribed. Please come back to the ER if symptoms persist or worsen Education Materials: Urinary Tract Infections in Women, Back Fracture (Compression Fracture), Brace TLSO, ED Pneumonia (Adult), ED Seizure New Onset Unknown ... Print Language: Pashto Stand Alone Forms: [employer] Award Info., Patient Portal Info Letter Quality Discharge Quality Measures VTE prophylaxis MD Attestestation MD Attestation I reviewed labs, imaging, EKG, home medications and prior available records. Face to face evaluation was performed by me. I have personally examined the patient and discussed assessment and plan with the IM team. I reviewed the resident note and agree with the plan with exceptions as below. Seizure History of dementia Hyperactive agitation T1 compression fracture of the spine Hepatitis C Constipation Gave IV haloperidol for agitation Ordered spine MRI: Showed acute/subacute severe compression fracture T12 vertebral body, reduction in height 60%, retropulsion of the posterior superior margin of this vertebral body 7 mm. Will discharge with the brace. Outpatient follow-up with orthopedic surgery/neurosurgery Pain management as needed Continue Keppra Seizure precautions Gave enema for the constipation Continue quetiapine at 200 mg twice daily Ativan as needed for breakthrough seizures Keep Cook catheter as patient is not urinating. Outpatient follow-up with urology Ordered home health Patient had to stay in the hospital due to transportation issues
[2025-02-27 11:56] VITALS: BP 113/67; PULSE 79; RESP 17; TEMP 36.4; O2SAT 94
[2025-02-27 16:00] VITALS: BP 141/93; PULSE 96; RESP 20; TEMP 36.1; O2SAT 94
--- NOTE | 2025-02-27 19:17 | PD.RESEVENT ---
Documentation for date of: 02/27/25 Event Note Event Note: Received a call from nurse that per patient's family they are requesting to hold discharge, as they have to pay for transportation by [facility] and insurance is not covering for it. Patient is chronically bed-bound and was admitted for T12 compression fracture. Patient's discharge will be held, as it is unsafe to discharge patient without safe transportation, family welfare social work professor to review case in a.m. Case discussed with Attending Dr. Kumari. Patt Garcia PGY1 Disclaimer: This note was dictated by speech recognition. Minor errors in director airport operations may be present due to voice recognition software.
--- NOTE | 2025-02-27 19:23 | PC.NURSE ---
Patient is expected to be discharge to home today however pt family is saying that pt's insurance is not covering for a [facility] transfer and pt has been bed bound for 2 years and can not even stand and ambulate on her own. Notify Dr. Garcia of the pt's family's concern. Dr. Garcia said to cancel the discharge as it is not a safe discharge and he will his senior know.
[2025-02-27 20:00] VITALS: BP 117/94; PULSE 84; RESP 20; TEMP 37; O2SAT 93
[2025-02-27] MEDS: BENZTROPINE 0.5 MG TABLET 1 MG PO (21:31)
[2025-02-28] VITALS: BP 155/87; PULSE 80; RESP 20; TEMP 36.6; O2SAT 95
[2025-02-28 04:00] VITALS: BP 142/84; PULSE 72; RESP 20; TEMP 36.2; O2SAT 92
[2025-02-28] MEDS: LACTULOSE SYRUP 20 GM/30 ML UDC PO (05:16)
[2025-02-28 06:30] LABS: Basophils # (Auto) 0.1 Thou/mm3 (0.0-0.2); Basophils % (Auto) 1 % (0-2.5); Eosinophils # (Auto) 0.2 Thou/mm3 (0.0-0.5); Eosinophils % (Auto) 3 % (0-10); Hematocrit 38.2 % (36.0-46.0); Hemoglobin 12.8 g/dL (12.0-16.0); Immature Granulocytes % (Auto) 0 % (0-0); Immature Granulocytes Auto 0.03 Thou/mm3 (0.00-0.00); Lymphocytes # (Auto) 1.4 Thou/mm3 (1.0-4.8); Lymphocytes % (Auto) 19 % (10-50); Mean Corpuscular HGB Conc 33.5 g/dl (31.0-37.0); Mean Corpuscular Hemoglobin 29.3 pg (25.0-35.0); Mean Corpuscular Volume 87 fL (80-100); Monocytes # (Auto) 0.7 Thou/mm3 (0.0-0.8); Monocytes % (Auto) 10 % (0-12); Neutrophils # (Auto) 5.1 Thou/mm3 (1.8-7.7); Neutrophils % (Auto) 68 % (37-80); Nucleated Red Blood Cell % 0 /100 WBC (0); Platelet Count 350 Thou/mm3 (140-440); RDW Standard Deviation 47.8 fL (36.4-46.3); Red Blood Count 4.37 Miln/mm3 (4.00-5.20); White Blood Count 7.6 Thou/mm3 (3.6-11.0)
[2025-02-28 07:11] LABS: Anion Gap 12 (7-16); BUN/Creatinine Ratio 24 Ratio (12-20); Blood Urea Nitrogen 19 mg/dL (9-23); Calcium 9.5 mg/dL (8.3-10.6); Carbon Dioxide 28.4 mMol/L (20.0-31.0); Chloride 101 mMol/L (98-107); Creatinine (Component) 0.8 mg/dL (0.6-1.3); Estimated Creatinine Clearance 78.9 mL/min (>60); Glucose 122 mg/dL (74-106); Osmolality,Calculated 284 (275-295); Phosphorous 2.8 mg/dL (2.4-5.1); Sodium 141 mMol/L (136-145); eGFR > 60 See Note
[2025-02-28 07:44] VITALS: BP 130/89; PULSE 90; RESP 18; TEMP 36.2; O2SAT 94
[2025-02-28] MEDS: levETIRAcetam 250 MG TABLET 500 MG PO (08:15)
[2025-02-28] MEDS: QUEtiapine FUMARATE 100 MG TABLET 200 MG PO (08:15)
[2025-02-28] MEDS: SENNA TABLET 1 TAB PO (08:16)
[2025-02-28] MEDS: HEPARIN SOD INJ 5000 UNIT/ML VIAL SC (08:16)
--- NOTE | 2025-02-28 09:51 | PC.SS ---
Heating And Cooling Systems Engineer (NYLA) Devika informed by E Resident Dr. Ortega that patient was discharged yesterday, 02/27/2025; however, there were issues with transportation. NYLA attempted to meet with patient, but her answers were minimal and she appeared confused. SW contacted patient's son, Darshan. NYLA introduced self, role and reason for phone contact. Darshan reported that he came to the hospital to transfer patient via private vehicle in her wheelchair. The RN for laundry supervisor declined transportation and reported to him that it was unsafe, discharge was held. Darshan reported that he returned home and contacted [facility] ([facility]) as she was enrolled in their services. Darshan requested for SW to complete referral to [facility]. NYLA updated Dr. Orteag whom was in agreement with discharge plan. Hospice orders and clinical information was faxed to [phone]. NYLA made contacted with Stephani at [facility]. Stephani confirmed referral was received. Stephani reported that he will contact son to complete admission packet and obtain what DME was missing. NYLA contacted [facility] to schedule ambulance transportation to rerturn home (reference number: [id number]). ETA scheduled for 1300. NYLA notified bedside RN-Frantz and patient's son, Darshan.
--- NOTE | 2025-02-28 10:18 | ESDS_ITS ---
Planned Discharge Date 02/28/25 DS: Providers Provider Date of admission: 02/21/25 13:01 Primary care physician: Katie Cason CNM Admitting Provider: Audie De Guzman DO Attending Provider on Admission: Raza Sparks MD Consults: 02/21/25 13:11 Referral Speech Therapy Routine Comment: Instructions: Seizure-activity, Alzheimer dementia and pneumonia on CXR - please assess for aspiration risk 02/21/25 21:49 Consult Diabetic Routine Comment: Referral Liseth Routine Comment: Referral Registered Dietitian Routine Comment: 02/24/25 13:56 Consult to Infectious Diseases Routine Comment: Consulting Provider: Pro Jain 02/28/25 08:54 Referral Hospice Routine Comment: Attending Provider on DC: Raza Sparks MD Discharging Provider: Raza Sparks MD DS: Diagnosis Problem List Completed Was Problem List Reviewed/Reconciled?: Yes Hospital Course Hospital Course Hospital course: 69-year-old female with past medical history of dementia secondary to Alzheimer's disease, paranoid, depression, and disfluent at baseline is admitted to the hospital on 02/21/2025 due to new onset seizures likely secondary to infectious etiology. Patient was seen in our ED after she was having seizure- like activity at home witnessed by family members. Throughout the hospital stay patient did not have further seizures. She was placed on Zosyn given history of ESBL resistance to cefepime. She remained afebrile and did not have any spikes in WBC either. Infectious disease saw the patient and stated that there was no need for antibiotics at this time. Patient was going to be discharged, but patient had a hepatitis C panel that came back positive and a retroperitoneum ultrasound that did show bilateral hydronephrosis therefore patient was not discharged. Patient then underwent abdominal ultrasound which again showed bilateral hydronephrosis therefore abdomen/pelvis CT was ordered and revealed an acute T12 fracture. Given this fracture and the family stated that the patient had not had any recent falls further imaging was required to see if patient had spinal cord compression. Given patient's current condition MRI was very diffic ult to obtain given that she could not tolerate being in the MRI machine for too long. Patient eventually got the MRI done which showed acute versus subacute T12 fracture, but no spinal cord compression. Patient also had a Cook in place given that the hydronephrosis was found and she was having some urinary retention. Before discharge patient's Cook was discontinued, but patient was not able to urinate and therefore we will send patient with Cook catheter and to follow-up with urology. At the time of discharge patient was stable enough to be discharged home with hospice. 02/28/2025: Patient was seen and examined at bedside this morning. No acute overnight events. Patient's discharge was held yesterday due to problems with transportation. apartment maintenance worker this morning spoke with patient's family who stated that patient would need to go home with hospice and they had been in contact with the hospice company already. At the time of discharge patient was stable enough to be discharged home with hospice. Discharge plan: Please follow-up with your primary care physician within 1 week after discharge Please follow-up with your primary care physician for ultrasound of the liver f or further workup given hep C antibody was reactive. You have been started on Keppra 500mg twice a day. Please Follow-up with your primary care physician concerning your T12 fracture. Please follow-up with urology within 7 days after discharge to follow-up on hydronephrosis and urinary retention. Recommend outpatient follow-up with neurosurgery for T12 fracture. Recommend to follow-up outpatient as well with neurology given that patient had a seizure and will be on Keppra 500 mg twice a day. Please wear thoracic spine brace at all times except when bathing, until you see your primary care physician. Continue taking all home medications as prescribed. Please come back to the ER if symptoms persist or worsen Problem list: #Acute T12 compression fracture #ODELL Hydronephrosis #New onset seizure #Community acquired pneumonia #HCV #History of dementia #History of paranoid schizophrenia #Constipation, resolved Case disclosed with Attending Dr. Clare Nassar PGY1 Disclaimer: This note was dictated by speech recognition and even though it was carefully revised there may still be minor errors in retail event and sales assistant due to voice recognition software. Status at Discharge Overall status at discharge: patient is progressing back to baseline Time Spent with Patient Time attestation: Total time spent providing and/or coordinating discharge services:>35 min Time spent: Greater than 30 minutes Exam Vital Signs Temp Pulse Resp BP Pulse Ox O2 Del Method O2 Flow Rate 97.1 F 90 18 130/89 H 94 L Room Air 4 02/28/25 07:44 02/28/25 07:44 02/28/25 07:44 02/28/25 07:44 02/28/25 07:44 02/28/25 07:44 02/24/25 04:00 Narrative Exam General: Alert and awake, no acute distress Eyes: PERRL, EOMI. Anicteric, vision grossly intact. Ears: No visible ear discharge, Hearing grossly intact. Nose: No nasal discharge. Mouth/Throat: Moist mucous membranes, no redness, no lesions. Neck: Neck supple, non-tender, no cervical lymphadenopathy. Lungs: Clear ODELL to auscultation and percussion, No accessory muscle use. Cardio: Normal S1/S2, regular rhythm, no murmurs, no JVD Abdomen: Soft, non-tender, no palpable masses, peristalsis present but hypoactive, no guarding or rebound. Extremities: Symmetrical, no significant deformities, no peripheral edema , non-tender, peripheral pulses presents. Skin: No rashes, no lesions, warm to touch. Neuro: Limited given patient's current condition was moving all extremities. Discharge Plan Plan Patient Disposition: Home w/HOSPICE Care Plan Goals: Please follow-up with your primary care physician within 1 week after discharge Please follow-up with your primary care physician for ultrasound of the liver for further workup given hep C antibody was reactive. You have been started on Keppra 500mg twice a day. Please Follow-up with your primary care physician concerning your T12 fracture. Please follow-up with urology within 7 days after discharge to follow-up on hydronephrosis and urinary retention. Recommend outpatient follow-up with neurosurgery for T12 fracture. Recommend to follow-up outpatient as well with neurology given that patient had a seizure and will be on Keppra 500 mg twice a day. Please wear thoracic spine brace at all times except when bathing, until you see your primary care physician. Continue taking all home medications as prescribed. Please come back to the ER if symptoms persist or worsen Prescriptions/Referrals Prescriptions/Med Rec: New levetiracetam 250 mg Tablet 500 mg PO BID 30 Days Qty: 120 0RF Continued lorazepam 0.5 mg tablet 0.5 mg PO TID PRN (Reason: anxiety) Patient Comments: take 1 tablet by mouth three times a day if needed for anxiety bisacodyl [Dulcolax (bisacodyl)] 5 mg tablet,delayed release (/EC) 10 mg PO QDAY quetiapine 200 mg tablet 200 mg PO BID Qty: 60 0RF benztropine 1 mg tablet 1 mg PO HS Patient Comments: TAKE ONE TABLET BY MOUTH AT BEDTIME Discontinued levofloxacin 750 mg tablet 750 mg PO QDAY Patient Comments: take 1 tablet by mouth once daily for 4 days. Just had one more to take today. Referrals: Katie Cason CNM [Primary Care Provider] - Patient/Caregiver Discharge Instructions Other Discharge Activity Instructions:: Please follow-up with your primary care physician within 1 week after discharge Please follow-up with your primary care physician for ultrasound of the liver for further workup given hep C antibody was reactive. You have been started on Keppra 500mg twice a day. Please Follow-up with your primary care physician concerning your T12 fracture. Please follow-up with urology within 7 days after discharge to follow-up on hydronephrosis and urinary retention. Recommend outpatient follow-up with neurosurgery for T12 fracture. Recommend to follow-up outpatient as well with neurology given that patient had a seizure and will be on Keppra 500 mg twice a day. Please wear thoracic spine brace at all times except when bathing, until you see your primary care physician. Continue taking all home medications as prescribed. Please come back to the ER if symptoms persist or worsen Education Materials: Urinary Tract Infections in Women, Back Fracture (Compression Fracture), Brace TLSO, ED Pneumonia (Adult), ED Seizure New Onset Unknown ... Print Language: Jamaican Stand Alone Forms: [employer] Award Info., Patient Portal Info Letter Discharge Order Discharge Orders: Discharge (Routine); Ordered 02/28/25 Ordered By: Dieudonne Nassar Quality Discharge Quality Measures VTE prophylaxis Attestestation MD Attestation I reviewed labs, imaging, EKG, home medications and prior available records. Face to face evaluation was performed by me. I have personally examined the patient and discussed assessment and plan with the IM team. I reviewed the resident note and agree with the plan with exceptions as below. Seizure History of dementia Hyperactive agitation T1 compression fracture of the spine Hepatitis C Constipation Gave IV haloperidol for agitation Ordered spine MRI: Showed acute/subacute severe compression fracture T12 vertebral body, reduction in height 60%, retropulsion of the posterior superior margin of this vertebral body 7 mm. Will discharge with the brace. Outpatient follow-up with orthopedic surgery/neurosurgery Continue Keppra 500 mg twice daily Gave enema for the constipation Continue quetiapine at 200 mg twice daily Keep Cook catheter as patient is not urinating. Outpatient follow-up with urology Patient will go home with hospice Patient had to stay in the hospital due to transportation issues Time spent is 40 minutes. More than 50% of the time was spent on patient education and coordination of care.
[2025-02-28 12:00] VITALS: BP 132/84; PULSE 88; RESP 18; TEMP 36.2; O2SAT 94
== END 2025-02-28 12:55 | disposition hospice, home (50) | DRG 100 ==
LOC: SERX 12:33 → SERHOLD 13:51 → S3SX 19:39
PROVIDERS: Internal Medicine Infectious Disease; Admitting Provider Student in an Organized Health Care Education/Training Program; Emergency Provider Family Medicine; PCP Advanced Practice Midwife; Visit Provider Student in an Organized Health Care Education/Training Program
DX: R56.9 Unspecified convulsions (principal); J18.9 Pneumonia, unspecified organism; F20.0 Paranoid schizophrenia; M48.54XA Collapsed vertebra, not elsewhere classified, thoracic region, initial encounter for fracture; Z16.19 Resistance to other specified beta lactam antibiotics; N13.30 Unspecified hydronephrosis; G30.9 Alzheimer's disease, unspecified; F02.80 Dementia in other diseases classified elsewhere, unspecified severity, without behavioral disturbance, psychotic disturbance, mood disturbance, and anxiety; E11.9 Type 2 diabetes mellitus without complications; B18.2 Chronic viral hepatitis C; N32.89 Other specified disorders of bladder; R45.1 Restlessness and agitation; I10 Essential (primary) hypertension; K59.00 Constipation, unspecified; R16.0 Hepatomegaly, not elsewhere classified; R82.71 Bacteriuria; Z87.440 Personal history of urinary (tract) infections; Z86.19 Personal history of other infectious and parasitic diseases; Z74.01 Bed confinement status; Z87.891 Personal history of nicotine dependence; Z59.82 Transportation insecurity; Z79.899 Other long term (current) drug therapy
CPT/HCPCS: 36415; 36600; 70450; 71045; 72146; 74176; 76700; 76770; 80048; 80053; 80307; 81001; 82140; 82607; 82746; 82803; 83036; 83735; 84100; 84145; 84443; 84484; 85025; 85610; 85730; 86803; 87040; 87081; 87086; 87205; 87400; 87811; 92526; 92610; 93005; 94640; 94762; 95816; 96361; 96365; 96367; 96375; 99291; A4216; A9270; J1630; J1644; J1953; J2060; J2270; J2358; J2470; J2543; J3480; J7030; J7120; J2359